=== PATIENT | male | born 1950 | race Caucasian/White ===

== ENCOUNTER 2016-09-17 09:32 | Outpatient (CLI) | payer MEDICARE ==
[2016-09-17 13:02] LABS: ALBUMIN/GLOBULIN RATIO 1.1 (1.0-2.2); BILIRUBIN,TOTAL 0.8 mg/dL (0.2-1.0); BUN - BLOOD UREA NITROGEN 15 mg/dL (6-20); CARBON DIOXIDE - CO2 29 mmol/L (21-32); CHLORIDE 100 mmol/L (101-111); CHOL/HDL RATIO 2.9 (<5.0); CHOLESTEROL 97 mg/dL; CREATININE 1.1 mg/dL (0.6-1.2); GFR - MDRD 67 (>89); GLUCOSE 111 mg/dL (70-100); HDL CHOLESTEROL 34 mg/dL; POTASSIUM 3.2 mmol/L (3.5-5.0); SODIUM 138 mmol/L (135-145); TOTAL PROTEIN 7.2 g/dL (6.7-8.2); TRIGLYCERIDES 144 mg/dL; VLDL CHOLESTEROL 29 mg/dL
== END 2016-09-17 09:33 | disposition home or self-care (01) ==
LOC: LAB.N 09:32
PROVIDERS: ATTEND Internal Medicine
DX: E78.4 Other hyperlipidemia (principal); N40.0 Benign prostatic hyperplasia without lower urinary tract symptoms; Z12.5 Encounter for screening for malignant neoplasm of prostate; C73 Malignant neoplasm of thyroid gland; Z79.899 Other long term (current) drug therapy
CPT/HCPCS: 36415; 80053; 80061; 84443; G0103; 84153

== ENCOUNTER 2016-10-04 09:38 | Outpatient (CLI) | payer MEDICARE ==
[2016-10-04 13:16] LABS: ALBUMIN/GLOBULIN RATIO 1.1 (1.0-2.2); BILIRUBIN,TOTAL 0.7 mg/dL (0.2-1.0); BUN - BLOOD UREA NITROGEN 14 mg/dL (6-20); CARBON DIOXIDE - CO2 32 mmol/L (21-32); CHLORIDE 99 mmol/L (101-111); CHOL/HDL RATIO 3.1 (<5.0); CHOLESTEROL 109 mg/dL; CREATININE 1.1 mg/dL (0.6-1.2); GFR - MDRD 67 (>89); GLUCOSE 106 mg/dL (70-100); HDL CHOLESTEROL 35 mg/dL; LDL/HDL RATIO 1.1 (<3.6); POTASSIUM 3.5 mmol/L (3.5-5.0); SODIUM 138 mmol/L (135-145); TOTAL PROTEIN 7.2 g/dL (6.7-8.2); TRIGLYCERIDES 170 mg/dL; VLDL CHOLESTEROL 34 mg/dL
== END 2016-10-04 09:39 | disposition home or self-care (01) ==
LOC: LAB.N 09:38
PROVIDERS: ATTEND Internal Medicine
DX: E78.4 Other hyperlipidemia (principal); I10 Essential (primary) hypertension; Z79.899 Other long term (current) drug therapy
CPT/HCPCS: 36415; 80053; 80061

== ENCOUNTER 2016-12-31 09:50 | Outpatient (CLI) | payer MEDICARE ==
[2016-12-31 13:07] LABS: THYROID STIMULATING HORMONE < 0.08 uIU/mL (0.34-5.60)
== END 2016-12-31 09:51 | disposition home or self-care (01) ==
LOC: LAB.N 09:50
PROVIDERS: ATTEND Internal Medicine Endocrinology, Diabetes & Metabolism
DX: C73 Malignant neoplasm of thyroid gland (principal)
CPT/HCPCS: 36415; 84432; 84439; 84443; 86800

== ENCOUNTER 2017-01-10 14:37 | Outpatient (CLI) | payer MEDICARE ==
[2017-01-10 14:04] LABS: THYROID STIMULATING HORMONE < 0.08 uIU/mL (0.34-5.60)
== END 2017-01-10 14:38 | disposition home or self-care (01) ==
LOC: LAB.N 14:37
PROVIDERS: ATTEND Internal Medicine Endocrinology, Diabetes & Metabolism
DX: C73 Malignant neoplasm of thyroid gland (principal)
CPT/HCPCS: 36415; 84439; 84443

== ENCOUNTER 2017-04-22 08:00 | Outpatient (CLI) | payer MEDICARE ==
[2017-04-22 12:43] LABS: HGB - HEMOGLOBIN 15.6 g/dL (14.0-18.0); MEAN CORPUSCULAR HEMOGLOBIN 29.8 pg (27.0-31.0); MEAN CORPUSCULAR HGB CONC 34.8 g/dL (32.0-36.0); MEAN CORPUSCULAR VOLUME 85.8 fL (80.0-94.0); MEAN PLATELET VOLUME 8.4 fL (7.4-11.4); RED BLOOD COUNT 5.21 10^6/uL (4.70-6.10); RED CELL DISTRIBUTION WIDTH 13.6 % (12.0-15.0); WHITE BLOOD COUNT 7.4 x10^3/uL (4.8-10.8)
[2017-04-22 13:08] LABS: ALBUMIN 3.7 g/dL (3.2-5.5); ALKALINE PHOSPHATASE 67 IU/L (42-121); ALT ALANINE AMINOTRANSFERASE 40 IU/L (10-60); AST ASPARTATE AMINOTRANSFERASE 25 IU/L (10-42); BILIRUBIN,TOTAL 0.6 mg/dL (0.2-1.0); BUN - BLOOD UREA NITROGEN 21 mg/dL (6-20); CALCIUM 8.8 mg/dL (8.5-10.3); CARBON DIOXIDE - CO2 29 mmol/L (21-32); CHLORIDE 99 mmol/L (101-111); CHOL/HDL RATIO 3.2 (<5.0); CHOLESTEROL 105 mg/dL; CREATININE 1.1 mg/dL (0.6-1.2); GFR - MDRD 66 (>89); GLUCOSE 105 mg/dL (70-100); HDL CHOLESTEROL 33 mg/dL; LDL CHOLESTEROL,CALCULATED 41 mg/dL; LDL/HDL RATIO 1.2 (<3.6); SODIUM 137 mmol/L (135-145); TOTAL PROTEIN 7.5 g/dL (6.7-8.2); VLDL CHOLESTEROL 31 mg/dL
[2017-04-22 13:34] LABS: HB2 TOTAL 17.2 g/dL; HEMOGLOBIN A1C 0.72 g/dL
== END 2017-04-22 08:01 | disposition home or self-care (01) ==
LOC: LAB.N 08:00
PROVIDERS: ATTEND Internal Medicine
DX: E78.4 Other hyperlipidemia (principal); E74.9 Disorder of carbohydrate metabolism, unspecified; I10 Essential (primary) hypertension; Z79.899 Other long term (current) drug therapy
CPT/HCPCS: 36415; 80053; 80061; 83036

== ENCOUNTER 2017-05-13 10:52 | Outpatient (CLI) | payer MEDICARE ==
--- NOTE | 2017-05-13 19:51 | Ultrasound Report ---
DATE OF SERVICE: 05/13/2017 AORTA SCREENIN05/13/2017 CLINICAL INDICATION: Hypertension. The abdominal aorta is normal in caliber, measuring 2.4 cm proximally, 1.8 cm in the mid portion, and 1.5 cm distally. The iliacs are normal in caliber. No free fluid is seen. IMPRESSION: No evidence of abdominal aortic aneurysm. TD: 05/13/2017 20:50
== END 2017-05-13 10:53 | disposition home or self-care (01) ==
LOC: DI 10:52
PROVIDERS: ATTEND Internal Medicine
DX: I10 Essential (primary) hypertension (principal)
CPT/HCPCS: 76706

== ENCOUNTER 2017-05-15 08:00 | Outpatient (CLI) | payer MEDICARE | END 2017-05-15 08:01 | disposition home or self-care (01) | LOC: LAB.N 08:00 | PROVIDERS: ATTEND Internal Medicine | DX: E87.6 Hypokalemia (principal); Z79.899 Other long term (current) drug therapy | CPT/HCPCS: 36415; 80048 ==

== ENCOUNTER 2017-06-17 13:44 | Outpatient (CLI) | payer MEDICARE ==
[2017-06-17 13:42] LABS: THYROID STIMULATING HORMONE 0.08 uIU/mL (0.34-5.60)
[2017-06-17 13:46] LABS: FREE T4 (FREE THYROXINE) 1.82 ng/dL (0.58-1.64)
[2017-06-17 13:57] LABS: CALCIUM 8.9 mg/dL (8.5-10.3)
== END 2017-06-17 13:45 | disposition home or self-care (01) ==
LOC: LAB.N 13:44
PROVIDERS: ATTEND Internal Medicine Endocrinology, Diabetes & Metabolism
DX: C73 Malignant neoplasm of thyroid gland (principal); E87.6 Hypokalemia; I10 Essential (primary) hypertension; Z79.899 Other long term (current) drug therapy
CPT/HCPCS: 36415; 80048; 84439; 84443

== ENCOUNTER 2017-06-19 08:00 | Outpatient (CLI) | payer MEDICARE | END 2017-06-19 08:01 | disposition home or self-care (01) | LOC: LAB.N 08:00 | PROVIDERS: ATTEND Internal Medicine Endocrinology, Diabetes & Metabolism | DX: C73 Malignant neoplasm of thyroid gland (principal) | CPT/HCPCS: 36415; 84432; 86800 ==

== ENCOUNTER 2018-01-27 09:31 | Emergency (ER) | payer MEDICARE ==
--- NOTE | 2018-01-27 10:17 | ED Physician Documentation ---
History of Present Illness - Stated complaint Stated Complaint: MALE - Chief complaint Chief Complaint: UTI - Additonal information Additional information: hx from pt 67 male BPH seen by PMD Friday for dysuira hematuria dx UTI rx bactrim still with dysuria, hematuria with some clots, low grade fever no rectal pain, no testicular pain Review of Systems Constitutional: reports: Fever GI: reports: Nausea. denies: Abdominal Pain : reports: Dysuria, Hematuria Musculoskeletal: denies: Back pain Endocrine: denies: Easy bruising / bleeding Immunocompromised: denies: Immunocompromised PD PAST MEDICAL HISTORY - Past Medical History Cardiovascular: Hypertension, High cholesterol Respiratory: None Endocrine/Autoimmune: None : Benign prostate hypertrophy Psych: None Musculoskeletal: Chronic back pain - Past Surgical History Past Surgical History: No - Present Medications Home Medications: Ambulatory Orders Medication Instructions Recorded Confirmed Aspirin [Aspir 81] 81 mg PO DAILY 06/08/13 06/08/13 Atorvastatin [Lovastatin] 40 mg PO HS 06/08/13 06/08/13 Baclofen [Lioresal] 10 mg PO TID 06/08/13 06/08/13 Bisacodyl [Biscolax] 10 mg RC DAILY 06/08/13 06/08/13 Chlorthalidone 15 mg PO DAILY 06/08/13 06/08/13 Ciprofloxacin HCl [Cipro] 250 mg PO BID 06/08/13 06/08/13 Docusate Sodium 100Mg Capsule 100 mg PO BID 06/08/13 06/08/13 [Colace] Doxazosin [Cardura] 8 mg PO DAILY 06/08/13 06/08/13 Metoprolol Tartrate [Lopressor] 25 mg PO BID 06/08/13 06/08/13 Polyvinyl Alcohol 1 drop OP BID 06/08/13 06/08/13 Potassium Chloride 20 meq PO DAILY 06/08/13 06/08/13 oxyCODONE [Roxicodone] 5 mg PO Q4H 06/08/13 06/08/13 Cephalexin [Keflex] 500 mg PO Q6H #28 capsule 01/27/18 - Allergies Allergies/Adverse Reactions: Allergies Allergy/AdvReac Type Severity Reaction Status Date / Time No Known Drug Allergies Allergy Verified 01/27/18 09:46 - Social History Does the pt smoke?: No Smoking Status: Never smoker Does the pt drink ETOH?: Yes Does the pt have substance abuse?: No - Immunizations Immunizations are current?: Yes - POLST Patient has POLST: No PD ED PE NORMAL - Vitals Vital signs reviewed: Yes - Neck Neck: Supple, no meningeal sign - Cardiac Cardiac: RRR - Respiratory Respiratory: No respiratory distress - Abdomen Abdomen: Soft, Non tender - Male Male : 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), Other (circ, no blood at meaturs, testes NT and desc) - Back Back: No CVA TTP Results - Vitals Vitals: Vital Signs - 24 hr 01/27/18 09:44 Temperature 37.0 C Heart Rate 100 Respiratory 20 Rate Blood Pressure 126/79 O2 Saturation 95 Oxygen O2 Source Room air - Rads (name of study) KUB Radiology: See rad report (no stones) PD MEDICAL DECISION MAKING - ED course ED course: urine + infection also hematuria but no flank pain to suggest renal colic (or AAA) KUB neg for stone and also no calcified AAA seen got cx results from PMD resistant to bactrim will give rocephin IV and change to keflex aware flouroquinolones better for prostate tx but also black box - so keflex for now and fup urology able to urinate - clots not blocking creat up to 1.3 - gave IVF will need rechecked will dc Departure - Departure Disposition: 01 Home, Self Care Clinical Impression: UTI (urinary tract infection) Qualifiers: Urinary tract infection type: acute cystitis Hematuria presence: with hematuria Qualified Code(s): N30.01 - Acute cystitis with hematuria Condition: Good Instructions: ED Hematuria, ED UTI Cystitis Female Follow-Up: Viji Knight MD [Primary Care Provider] - Prescriptions: Cephalexin [Keflex] 500 mg PO Q6H #28 capsule Comments: It turns out the bacteria causing your urine infection were resistant to the sulfa antibiotic you were prescribed So we gave you a dose of an IV antibiotic and then a prescription for an oral antibiotic that should work better for this particular infection There was a lot of blood in the urine but your exam and xrays do not suggest a kidney stone or aneurysm And your kidney function is a bit decreased from your baseline today (creatinine 1.3 today) Since the clots are not blocking the urine from draining, I think you can go home and take the keflex instead of bactrim/septra You need to follow up with your PMD to recheck your kidney function and urine test in one week. And you need to get a referral to a urologist about the blood in the urine (could be from the infection but a scope to be sure no bladder or kidney tumors etc) Return if worse in any way Discharge Date/Time: 01/27/18 12:33
[2018-01-27 10:22] LABS: BILIRUBIN,URINE NEGATIVE (NEGATIVE); GLUCOSE, URINE (UA) NEGATIVE (NEGATIVE); KETONES,URINE (UA) NEGATIVE (NEGATIVE); LEUKOCYTE ESTERASE, URINE MODERATE (NEGATIVE); NITRITE,URINE NEGATIVE (NEGATIVE); OCCULT BLOOD,URINE LARGE (NEGATIVE); PH,URINE 8.5 PH (5.0-7.5); PROTEIN,URINE 30 mg/dL (NEGATIVE); UROBILINOGEN,URINE 0.2 (NORMAL) E.U./dL (NORMAL)
[2018-01-27 10:42] LABS: CLARITY,URINE CLOUDY (CLEAR)
[2018-01-27 10:43] LABS: BACTERIA,URINE Moderate /HPF (None Seen); RBC,URINE TNTC /HPF (0-5); SQUAMOUS EPITHELIAL CELL,UR NONE SEEN (<= Few); WBC CLUMPS,URINE PRESENT
[2018-01-27] MEDS ORDERED: SODIUM CHLORIDE 0.9% 1,000 ML IV ONE (10:54)
[2018-01-27] MEDS ORDERED: cefTRIAXone 1 GM in SODIUM CHLORIDE 0.9% MINIBAG 100 ML IV STA (10:54)
[2018-01-27 11:58] LABS: CALCIUM 9.1 mg/dL (8.5-10.3); CREATININE 1.3 mg/dL (0.6-1.2)
--- NOTE | 2018-01-27 12:02 | XRAY Report ---
Reason: hematuria Procedure Date: 01/27/2018 Accession Number: [id number] / [id number] Procedure: XR - Abdomen 1 View X-Ray CPT Code: 37348 FULL RESULT: EXAM: ABDOMEN RADIOGRAPHY EXAM DATE: 01/27/2018 10:59 AM. CLINICAL HISTORY: Hematuria. COMPARISON: None. TECHNIQUE: 1 view. FINDINGS: Bowel Gas Pattern: Within normal limits. Air-filled ectatic colon No dilated loops. Other: No renal calcifications identified Left upper quadrant calcifications possibly spleen versus GI tract IMPRESSION: No renal calcifications RADIA
[2018-01-27 12:33] VITALS: BP 138/88
== END 2018-01-27 12:33 | disposition home or self-care (01) ==
LOC: ED 09:31
DX: N30.01 Acute cystitis with hematuria (principal); A49.9 Bacterial infection, unspecified; I10 Essential (primary) hypertension; E78.00 Pure hypercholesterolemia, unspecified; Z79.82 Long term (current) use of aspirin
CPT/HCPCS: 36415; 74018; 80048; 81001; 81003; 87086; 96365; 99283

== ENCOUNTER 2018-03-02 08:00 | Outpatient (CLI) | payer MEDICARE ==
[2018-03-02 15:46] LABS: ALBUMIN 3.8 g/dL (3.2-5.5); ALBUMIN/GLOBULIN RATIO 1.1 (1.0-2.2); ALKALINE PHOSPHATASE 72 IU/L (42-121); ALT ALANINE AMINOTRANSFERASE 35 IU/L (10-60); AST ASPARTATE AMINOTRANSFERASE 29 IU/L (10-42); BILIRUBIN,TOTAL 1.1 mg/dL (0.2-1.0); BUN - BLOOD UREA NITROGEN 16 mg/dL (6-20); CALCIUM 8.9 mg/dL (8.5-10.3); CARBON DIOXIDE - CO2 28 mmol/L (21-32); CHLORIDE 98 mmol/L (101-111); CHOL/HDL RATIO 3.1 (<5.0); CHOLESTEROL 107 mg/dL; GFR - MDRD 74 (>89); GLUCOSE 103 mg/dL (70-100); HDL CHOLESTEROL 35 mg/dL; LDL CHOLESTEROL,CALCULATED 32 mg/dL; LDL/HDL RATIO 0.9 (<3.6); SODIUM 134 mmol/L (135-145); TOTAL PROTEIN 7.3 g/dL (6.7-8.2); VLDL CHOLESTEROL 40 mg/dL
[2018-03-02 15:52] LABS: HGB - HEMOGLOBIN 16.1 g/dL (14.0-18.0); MEAN CORPUSCULAR HEMOGLOBIN 29.3 pg (27.0-31.0); MEAN CORPUSCULAR HGB CONC 33.4 g/dL (32.0-36.0); MEAN CORPUSCULAR VOLUME 87.7 fL (80.0-94.0); MEAN PLATELET VOLUME 8.8 fL (7.4-11.4); RED BLOOD COUNT 5.5 10^6/uL (4.70-6.10); RED CELL DISTRIBUTION WIDTH 13.9 % (12.0-15.0); WHITE BLOOD COUNT 6.7 x10^3/uL (4.8-10.8)
== END 2018-03-02 08:01 | disposition home or self-care (01) ==
LOC: LAB.N 08:00
PROVIDERS: ATTEND Internal Medicine
DX: N40.0 Benign prostatic hyperplasia without lower urinary tract symptoms (principal); I10 Essential (primary) hypertension; E87.6 Hypokalemia; Z79.899 Other long term (current) drug therapy
CPT/HCPCS: 36415; 80053; 80061; 82306; 85027; G0103; 81001; 81003; 83721; 84153

== ENCOUNTER 2018-03-13 08:00 | Outpatient (CLI) | payer MEDICARE ==
[2018-03-13 12:51] LABS: CALCIUM 9.2 mg/dL (8.5-10.3); CREATININE 1.1 mg/dL (0.6-1.2)
== END 2018-03-13 23:59 ==
LOC: LAB.N 08:00
PROVIDERS: ATTEND Internal Medicine
DX: E78.49 Other hyperlipidemia (principal); I10 Essential (primary) hypertension
CPT/HCPCS: 36415; 80048

== ENCOUNTER 2018-03-20 08:00 | Outpatient (CLI) | payer MEDICARE | END 2018-03-20 08:01 | disposition home or self-care (01) | LOC: LAB.N 08:00 | PROVIDERS: ATTEND Internal Medicine | DX: I10 Essential (primary) hypertension (principal); E78.49 Other hyperlipidemia; E87.6 Hypokalemia | CPT/HCPCS: 36415; 84132 ==

== ENCOUNTER 2018-04-17 10:05 | Outpatient (CLI) | payer MEDICARE ==
[2018-04-17 15:06] LABS: CALCIUM 9.2 mg/dL (8.5-10.3); CREATININE 1.1 mg/dL (0.6-1.2)
== END 2018-04-17 23:59 | disposition home or self-care (01) ==
LOC: LAB.N 10:05
PROVIDERS: ATTEND Internal Medicine
DX: E87.6 Hypokalemia (principal)
CPT/HCPCS: 36415; 80048

== ENCOUNTER 2018-05-04 08:00 | Outpatient (CLI) | payer MEDICARE | END 2018-05-04 23:59 | disposition home or self-care (01) | LOC: LAB.N 08:00 | PROVIDERS: ATTEND Internal Medicine | DX: E78.6 Lipoprotein deficiency (principal); E74.4 Disorders of pyruvate metabolism and gluconeogenesis; Z79.899 Other long term (current) drug therapy | CPT/HCPCS: 36415; 84132 ==

== ENCOUNTER 2018-05-15 08:00 | Outpatient (CLI) | payer MEDICARE ==
[2018-05-15 12:59] LABS: BASOPHILS % (AUTO) 0.7 %; EOSINOPHILS # (AUTO) 0.2 10^3/uL (0.0-0.7); EOSINOPHILS % (AUTO) 2.3 %; HGB - HEMOGLOBIN 16.2 g/dL (14.0-18.0); LYMPHOCYTES # (AUTO) 1.7 10^3/uL (1.5-3.5); LYMPHOCYTES % (AUTO) 25.2 %; MEAN CORPUSCULAR HGB CONC 34.6 g/dL (32.0-36.0); MEAN CORPUSCULAR VOLUME 86.8 fL (80.0-94.0); MEAN PLATELET VOLUME 8.6 fL (7.4-11.4); MONOCYTES # (AUTO) 0.6 10^3/uL (0.0-1.0); MONOCYTES % (AUTO) 8.4 %; NEUTROPHILS # (AUTO) 4.4 10^3/uL (1.5-6.6); NEUTROPHILS % (AUTO) 63.4 %; PLT - PLATELET COUNT 224 10^3/uL (130-450); RED BLOOD COUNT 5.39 10^6/uL (4.70-6.10); RED CELL DISTRIBUTION WIDTH 13.3 % (12.0-15.0); WHITE BLOOD COUNT 6.9 x10^3/uL (4.8-10.8)
[2018-05-15 13:23] LABS: ALBUMIN 3.7 g/dL (3.2-5.5); ALKALINE PHOSPHATASE 68 IU/L (42-121); ALT ALANINE AMINOTRANSFERASE 28 IU/L (10-60); AST ASPARTATE AMINOTRANSFERASE 29 IU/L (10-42); BILIRUBIN,TOTAL 0.7 mg/dL (0.2-1.0); BUN - BLOOD UREA NITROGEN 16 mg/dL (6-20); CALCIUM 9.2 mg/dL (8.5-10.3); CARBON DIOXIDE - CO2 26 mmol/L (21-32); CHLORIDE 96 mmol/L (101-111); CHOL/HDL RATIO 2.7 (<5.0); CHOLESTEROL 103 mg/dL; CREATININE 1.1 mg/dL (0.6-1.2); GFR - MDRD 66 (>89); GLUCOSE 105 mg/dL (70-100); HDL CHOLESTEROL 38 mg/dL; LDL CHOLESTEROL,CALCULATED 36 mg/dL; LDL/HDL RATIO 0.9 (<3.6); SODIUM 136 mmol/L (135-145); TOTAL PROTEIN 7.4 g/dL (6.7-8.2); VLDL CHOLESTEROL 29 mg/dL
== END 2018-05-15 23:59 ==
LOC: LAB.N 08:00
PROVIDERS: ATTEND Internal Medicine
DX: I10 Essential (primary) hypertension (principal); N40.0 Benign prostatic hyperplasia without lower urinary tract symptoms; C73 Malignant neoplasm of thyroid gland; E78.49 Other hyperlipidemia; E74.9 Disorder of carbohydrate metabolism, unspecified
CPT/HCPCS: 36415; 80053; 80061; 85025; G0103; 81001; 83721; 84153

== ENCOUNTER 2018-07-23 09:58 | Emergency (ER) | payer MEDICARE ==
[2018-07-23 10:05] VITALS: BP 112/67
[2018-07-23 10:40] LABS: BILIRUBIN,URINE NEGATIVE (NEGATIVE); GLUCOSE, URINE (UA) NEGATIVE (NEGATIVE); KETONES,URINE (UA) NEGATIVE (NEGATIVE); LEUKOCYTE ESTERASE, URINE SMALL (NEGATIVE); NITRITE,URINE NEGATIVE (NEGATIVE); OCCULT BLOOD,URINE MODERATE (NEGATIVE); PH,URINE 8.5 PH (5.0-7.5); PROTEIN,URINE TRACE mg/dL (NEGATIVE); UROBILINOGEN,URINE 1 (NORMAL) E.U./dL (NORMAL)
[2018-07-23 10:50] LABS: CLARITY,URINE CLOUDY (CLEAR)
[2018-07-23] MEDS ORDERED: cefTRIAXone 1 GM VIAL IM STA (10:54)
[2018-07-23] MEDS ORDERED: LIDOCAINE 1% 2 ML VIAL MC ONE (10:54)
[2018-07-23 10:56] LABS: BACTERIA,URINE Rare /HPF (None Seen); SQUAMOUS EPITHELIAL CELL,UR RARE Squamous (<= Few); WBC CLUMPS,URINE PRESENT
--- NOTE | 2018-07-23 10:57 | ED Physician Documentation ---
History of Present Illness - Stated complaint Stated Complaint: MALE - Chief complaint Chief Complaint: UTI - History obtained from History obtained from: Patient, Caregiver - History of Present Illness Timing: How many days ago (3) Pain level max: 6 Pain level now: 4 - Additonal information Additional information: Patient is a 68-year-old male complaining of dysuria, hematuria for the past 3 days. Pain and burning present with urination. No fevers. No back pain. No nausea or vomiting. Saw PCP on Friday, started on Pyridium. Not placed on antibiotics. Azo did help the pain, worse with urination Review of Systems Constitutional: denies: Fever, Chills Respiratory: denies: Cough GI: denies: Vomiting, Constipation, Diarrhea, Hematemesis, Bloody / black stool Skin: denies: Rash Musculoskeletal: denies: Neck pain, Back pain Neurologic: denies: Headache PD PAST MEDICAL HISTORY - Past Medical History Past Medical History: Yes Cardiovascular: Hypertension, High cholesterol Respiratory: None Neuro: CVA Endocrine/Autoimmune: None : Benign prostate hypertrophy Psych: None Musculoskeletal: Chronic back pain - Past Surgical History Past Surgical History: Yes - Present Medications Home Medications: Ambulatory Orders Medication Instructions Recorded Confirmed Aspirin [Aspir 81] 81 mg PO DAILY 06/08/13 07/23/18 Atorvastatin [Lovastatin] 40 mg PO HS 06/08/13 07/23/18 Baclofen [Lioresal] 10 mg PO TID 06/08/13 07/23/18 Docusate Sodium 100Mg Capsule 100 mg PO BID 06/08/13 07/23/18 [Colace] Doxazosin [Cardura] 8 mg PO DAILY 06/08/13 07/23/18 Metoprolol Tartrate [Lopressor] 25 mg PO BID 06/08/13 07/23/18 Potassium Chloride 20 meq PO DAILY 06/08/13 07/23/18 Cefdinir 300 mg PO BID #14 capsule 07/23/18 Levothyroxine Sodium [Synthroid] 112 mcg PO DAILY 07/23/18 07/23/18 - Allergies Allergies/Adverse Reactions: Allergies Allergy/AdvReac Type Severity Reaction Status Date / Time No Known Drug Allergies Allergy Verified 07/23/18 10:05 - Social History Does the pt smoke?: Yes Smoking Status: Current every day smoker Does the pt drink ETOH?: No Does the pt have substance abuse?: No - Immunizations Immunizations are current?: Yes - POLST Patient has POLST: No PD ED PE NORMAL - Vitals Vital signs reviewed: Yes - General General: Alert and oriented X 3, No acute distress, Well developed/nourished - HEENT HEENT: Moist mucous membranes - Neck Neck: Supple, no meningeal sign - Cardiac Cardiac: RRR - Respiratory Respiratory: No respiratory distress, Clear bilaterally - Abdomen Abdomen: Soft, Non tender, Non distended - Back Back: No CVA TTP, No spinal TTP - Derm Derm: Warm and dry - Neuro Neuro: Alert and oriented X 3 - Psych Psych: Normal mood, Normal affect Results - Vitals Vitals: Vital Signs - 24 hr 07/23/18 10:02 Temperature 35.6 C L Heart Rate 81 Respiratory 16 Rate Blood Pressure 112/67 O2 Saturation 96 Oxygen O2 Source Room air - Labs Labs: Laboratory Tests 07/23/18 10:27 Urine Color YELLOW Urine Clarity CLOUDY Urine pH 8.5 H Ur Specific [place] 1.020 Urine Protein TRACE Urine Glucose (UA) NEGATIVE Urine Ketones NEGATIVE Urine Occult Blood MODERATE H Urine Nitrite NEGATIVE Urine Bilirubin NEGATIVE Urine Urobilinogen 1 (NORMAL) Ur Leukocyte Esterase SMALL H Urine RBC 11-25 H Urine WBC >25 H Urine WBC Clumps PRESENT Ur Squamous Epith Cells RARE Squamous Urine Bacteria Rare Ur Microscopic Review INDICATED Urine Culture Comments INDICATED PD MEDICAL DECISION MAKING - ED course Complexity details: reviewed results, re-evaluated patient, considered differential, d/w patient ED course: Patient with a UTI. Will place on Cefdinir for home based on his prior urine cultures. Given Rocephin here. Will follow up with his PCP. Does not have chronic indwelling Henry catheters. Patient counseled regarding signs and symptoms for which I believe and urgent re-evaluation would be necessary. Patient with good understanding of and agreement to plan and is comfortable going home at this time This document was made in part using voice recognition software. While efforts are made to proofread this document, sound alike and grammatical errors may occur. Departure - Departure Disposition: 01 Home, Self Care Clinical Impression: UTI (urinary tract infection) Qualifiers: Urinary tract infection type: acute cystitis Hematuria presence: with hematuria Qualified Code(s): N30.01 - Acute cystitis with hematuria Condition: Good Instructions: ED UTI Cystitis Male Follow-Up: Viji Knight MD [Primary Care Provider] - Within 1 week Prescriptions: Cefdinir 300 mg PO BID #14 capsule Comments: Take all antibiotics until gone. Return if you worsen. Follow-up with your doc tor for further care.
== END 2018-07-23 11:29 | disposition home or self-care (01) ==
LOC: ED 09:58
DX: I10 Essential (primary) hypertension (principal); F17.200 Nicotine dependence, unspecified, uncomplicated; N30.01 Acute cystitis with hematuria; Z96.0 Presence of urogenital implants
CPT/HCPCS: 81001; 81003; 87077; 87086; 87181; 96372; 99283

== ENCOUNTER 2019-07-02 08:02 | Outpatient (CLI) | payer MEDICARE ==
[2019-07-02 12:10] LABS: BASOPHILS # (AUTO) 0.1 10^3/uL (0.0-0.1); BASOPHILS % (AUTO) 1.2 %; BILIRUBIN,URINE NEGATIVE (NEGATIVE); EOSINOPHILS # (AUTO) 0.2 10^3/uL (0.0-0.7); EOSINOPHILS % (AUTO) 2.4 %; GLUCOSE, URINE (UA) NEGATIVE (NEGATIVE); HGB - HEMOGLOBIN 16.9 g/dL (14.0-18.0); KETONES,URINE (UA) NEGATIVE (NEGATIVE); LEUKOCYTE ESTERASE, URINE SMALL (NEGATIVE); LYMPHOCYTES # (AUTO) 1.8 10^3/uL (1.5-3.5); MEAN CORPUSCULAR HEMOGLOBIN 30.8 pg (27.0-31.0); MEAN CORPUSCULAR HGB CONC 34.4 g/dL (32.0-36.0); MEAN CORPUSCULAR VOLUME 89.6 fL (80.0-94.0); MEAN PLATELET VOLUME 10.2 fL (7.4-11.4); MONOCYTES # (AUTO) 0.5 10^3/uL (0.0-1.0); MONOCYTES % (AUTO) 7.6 %; NEUTROPHILS # (AUTO) 4.1 10^3/uL (1.5-6.6); NEUTROPHILS % (AUTO) 61.5 %; NITRITE,URINE POSITIVE (NEGATIVE); OCCULT BLOOD,URINE TRACE-INTA (NEGATIVE); PH,URINE 7.5 PH (5.0-7.5); PLT - PLATELET COUNT 242 10^3/uL (130-450); PROTEIN,URINE NEGATIVE (NEGATIVE); RED BLOOD COUNT 5.48 10^6/uL (4.70-6.10); RED CELL DISTRIBUTION WIDTH 12.6 % (12.0-15.0); UROBILINOGEN,URINE 0.2 (NORMAL) E.U./dL (NORMAL); WHITE BLOOD COUNT 6.7 x10^3/uL (4.8-10.8)
[2019-07-02 12:11] LABS: CLARITY,URINE HAZY (CLEAR)
[2019-07-02 12:20] LABS: BACTERIA,URINE Few /HPF (None Seen); MUCUS,URINE Few Strands; RBC,URINE 0-5 /HPF (0-5); SQUAMOUS EPITHELIAL CELL,UR RARE Squamous (<= Few)
[2019-07-02 12:28] LABS: ALBUMIN 3.8 g/dL (3.2-5.5); ALBUMIN/GLOBULIN RATIO 1.2 (1.0-2.2); ALKALINE PHOSPHATASE 57 IU/L (42-121); ALT ALANINE AMINOTRANSFERASE 23 IU/L (10-60); AST ASPARTATE AMINOTRANSFERASE 20 IU/L (10-42); BILIRUBIN,TOTAL 0.9 mg/dL (0.2-1.0); BUN - BLOOD UREA NITROGEN 19 mg/dL (6-20); CALCIUM 9.2 mg/dL (8.5-10.3); CARBON DIOXIDE - CO2 26 mmol/L (21-32); CHLORIDE 102 mmol/L (101-111); CHOL/HDL RATIO 3.8 (<5.0); CHOLESTEROL 129 mg/dL; CREATININE 0.9 mg/dL (0.6-1.2); GLUCOSE 108 mg/dL (70-100); HDL CHOLESTEROL 34 mg/dL; LDL CHOLESTEROL,CALCULATED 62 mg/dL; LDL/HDL RATIO 1.8 (<3.6); SODIUM 136 mmol/L (135-145); VLDL CHOLESTEROL 33 mg/dL
[2019-07-02 12:34] LABS: T4 (THYROXINE) 13.22 ug/dL (6.09-12.23)
[2019-07-02 12:37] LABS: THYROID STIMULATING HORMONE 0.2 uIU/mL (0.34-5.60)
== END 2019-07-02 23:59 | disposition home or self-care (01) ==
LOC: LAB.N 08:02
PROVIDERS: ATTEND Internal Medicine
DX: I10 Essential (primary) hypertension (principal); E78.49 Other hyperlipidemia; Z79.899 Other long term (current) drug therapy; C73 Malignant neoplasm of thyroid gland; E03.9 Hypothyroidism, unspecified; E78.6 Lipoprotein deficiency
CPT/HCPCS: 36415; 80053; 80061; 81001; 81003; 83721; 84436; 84443; 85025

== ENCOUNTER 2019-12-10 17:49 | Outpatient (CLI) | payer MEDICARE | END 2019-12-10 17:50 | disposition EMS.NT | LOC: EMS 17:49 | PROVIDERS: ATTEND Surgery | DX: R19.8 Other specified symptoms and signs involving the digestive system and abdomen (principal) ==

== ENCOUNTER 2020-03-29 21:16 | Outpatient (CLI) | payer MEDICARE | END 2020-03-29 21:17 | disposition critical access hospital (66) | LOC: EMS 21:16 | PROVIDERS: ATTEND Surgery | DX: R53.1 Weakness (principal); K59.00 Constipation, unspecified; R42 Dizziness and giddiness | CPT/HCPCS: A0425; A0427 ==

== ENCOUNTER 2020-03-29 21:45 | Inpatient (IN) | payer MEDICARE ==
[2020-03-29 22:08] LABS: LYMPHOCYTES % (AUTO) 1.6 %
[2020-03-29 22:15] LABS: BASOPHILS % (AUTO) 0.4 %; EOSINOPHILS % (AUTO) 0.2 %; HGB - HEMOGLOBIN 13.7 g/dL (14.0-18.0); MEAN CORPUSCULAR HEMOGLOBIN 30.4 pg (27.0-31.0); MEAN CORPUSCULAR HGB CONC 33.3 g/dL (32.0-36.0); MEAN CORPUSCULAR VOLUME 91.4 fL (80.0-94.0); MEAN PLATELET VOLUME 10.2 fL (7.4-11.4); NEUTROPHILS % (AUTO) 88.7 %; PLT - PLATELET COUNT 134 10^3/uL (130-450); RED BLOOD COUNT 4.51 10^6/uL (4.70-6.10); RED CELL DISTRIBUTION WIDTH 12.8 % (12.0-15.0); WHITE BLOOD COUNT 25.7 x10^3/uL (4.8-10.8)
[2020-03-29 22:18] LABS: ABNORMAL LYMPHS % (MANUAL) 0 %
[2020-03-29 22:20] LABS: ALBUMIN 2.9 g/dL (3.2-5.5); ALBUMIN/GLOBULIN RATIO 1.1 (1.0-2.2); CALCIUM 8.4 mg/dL (8.5-10.3); CREATININE 3.3 mg/dL (0.6-1.2); TOTAL PROTEIN 5.6 g/dL (6.7-8.2)
[2020-03-29] MEDS ORDERED: LACTATED RINGERS 1,000 ML IV STA (22:27)
--- NOTE | 2020-03-29 22:30 | ED Physician Documentation ---
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 He states that he has not had any fevers but has been feeling clammy. Tolerating normal oral intake but has not had a bowel movement in a week. Does have a history of constipation. Denies abdominal pain, blood per rectum, nausea, headache, chest pain, shortness of breath or cough. Denies body aches. Denies etoh or smoking. Review of Systems Ten Systems: 10 systems reviewed and negative Constitutional: reports: Other ("clamminess"). denies: Fever, Chills Eyes: denies: Loss of vision GI: reports: Constipation. denies: Abdominal Pain, Nausea : denies: Dysuria, Frequency, Hesitancy Neurologic: reports: Focal weakness (chronic) PD PAST MEDICAL HISTORY - Past Medical History Past Medical History: Yes Cardiovascular: Hypertension, High cholesterol Respiratory: None Neuro: CVA Endocrine/Autoimmune: None : Benign prostate hypertrophy Psych: None Musculoskeletal: Chronic back pain - Past Surgical History Past Surgical History: Yes - Present Medications Home Medications: Ambulatory Orders Medication Instructions Recorded Confirmed Aspirin [Aspir 81] 81 mg PO DAILY 06/08/13 03/29/20 Atorvastatin [Lovastatin] 40 mg PO HS 06/08/13 03/29/20 Baclofen [Lioresal] 10 mg PO TID 06/08/13 03/29/20 Docusate Sodium 100Mg Capsule 100 mg PO BID 06/08/13 03/29/20 [Colace] Doxazosin [Cardura] 8 mg PO DAILY 06/08/13 07/23/18 Metoprolol Tartrate [Lopressor] 25 mg PO BID 06/08/13 03/29/20 Potassium Chloride 20 meq PO DAILY 06/08/13 03/29/20 Cefdinir 300 mg PO BID #14 capsule 07/23/18 Levothyroxine Sodium [Synthroid] 112 mcg PO DAILY 07/23/18 03/29/20 Chlorthalidone 25 mg PO DAILY 03/29/20 03/29/20 - Allergies Allergies/Adverse Reactions: Allergies Allergy/AdvReac Type Severity Reaction Status Date / Time No Known Drug Allergies Allergy Verified 03/29/20 21:48 - Social History Does the pt smoke?: Yes Smoking Status: Current every day smoker Does the pt drink ETOH?: No Does the pt have substance abuse?: No - Immunizations Immunizations are current?: Yes - POLST Patient has POLST: No PD ED PE NORMAL - Vitals Vital signs reviewed: Yes - General General: Alert and oriented X 3 - HEENT HEENT: Atraumatic, PERRL, EOMI - Cardiac Cardiac: RRR - Respiratory Respiratory: No respiratory distress, Clear bilaterally - Abdomen Abdomen: Soft, Non tender, Non distended - Male Male : Deferred - Rectal Rectal: Other (soft brown stool in vault. ) - Back Back: No CVA TTP - Derm Derm: Normal color, Warm and dry - Extremities Extremities: No deformity, No edema - Neuro Neuro: Alert and oriented X 3, superior court clerk 2-12 intact, Other (L hemiplegia) - Psych Psych: Normal mood, Normal affect Results - Vitals Vitals: Vital Signs - 24 hr 03/29/20 03/29/20 03/29/20 21:48 21:53 22:06 Temperature 37.6 C 37.6 C 37.6 C Heart Rate 98 98 95 Respiratory 19 19 19 Rate Blood Pressure 87/58 L 87/58 L 82/49 L O2 Saturation 95 95 95 03/29/20 03/29/20 03/29/20 22:14 22:17 22:21 Temperature 37.6 C 37.6 C 37.6 C Heart Rate 95 96 94 Respiratory 19 19 19 Rate Blood Pressure 79/49 L 82/48 L 79/43 L O2 Saturation 95 96 96 03/29/20 03/29/20 03/29/20 22:25 22:30 22:41 Temperature 38.6 C H 37.6 C 38.4 C H Heart Rate 94 100 Respiratory 20 20 Rate Blood Pressure 90/59 L 107/91 H O2 Saturation 95 95 03/29/20 03/29/20 03/29/20 22:42 23:00 23:20 Temperature 38.6 C H 38.6 C H 38.6 C H Heart Rate 99 95 94 Respiratory 20 20 20 Rate Blood Pressure 81/60 L 89/51 L 89/54 L O2 Saturation 95 95 95 03/29/20 03/29/20 03/29/20 23:22 23:30 23:52 Temperature 36.8 C 36.8 C 36.8 C Heart Rate 95 93 91 Respiratory 20 22 21 Rate Blood Pressure 85/53 L 92/50 L 91/56 L O2 Saturation 95 94 95 Oxygen O2 Source Room air - EKG (time done) 2158 Rate: Rate (enter#) (96) Rhythm: NSR (normal intervals. no stemi) - Labs Labs: Laboratory Tests 03/29/20 03/29/20 03/29/20 22:02 22:02 22:39 WBC 25.7 H RBC 4.51 L Hgb 13.7 L Hct 41.2 L MCV 91.4 MCH 30.4 MCHC 33.3 RDW 12.8 Plt Count 134 MPV 10.2 Neut # (Auto) Not Reportable Lymph # (Auto) Not Reportable [place] # (Auto) Not Reportable Eos # (Auto) Not Reportable Baso # (Auto) Not Reportable Absolute Nucleated RBC Not Reportable Total Counted 100 Band Neuts % (Manual) 26 H Abnorm Lymph % (Manual) 0 Nucleated RBC % Not Reportable Neutrophils # (Manual) 23.4 H Lymphocytes # (Manual) 1.0 L Monocytes # (Manual) 1.3 H Eosinophils # (Manual) 0.0 Basophils # (Manual) 0.0 Differential Comment MANUAL DIFFERENTIAL Platelet Estimate NORMAL (130-450,000) Platelet Morphology 1+ LARGE PLATELETS RBC Morph Micro Appear NORMAL APPEARANCE Sodium 138 Potassium 3.7 Chloride 104 Carbon Dioxide 21 Anion Gap 13.0 BUN 30 H Creatinine 3.3 H Estimated GFR (MDRD) 19 L Glucose 96 Lactic Acid Calcium 8.4 L Total Bilirubin 1.0 AST 27 ALT 22 Alkaline Phosphatase 38 L Total Protein 5.6 L Albumin 2.9 L Globulin 2.7 Albumin/Globulin Ratio 1.1 Lipase 19 L Urine Color DARK YELLOW Urine Clarity CLOUDY Urine pH 5.0 Ur Specific [place] >=1.030 H Urine Protein 100 H Urine Glucose (UA) NEGATIVE Urine Ketones 15 H Urine Occult Blood LARGE H Urine Nitrite NEGATIVE Urine Bilirubin NEGATIVE Urine Urobilinogen 0.2 (NORMAL) Ur Leukocyte Esterase MODERATE H Urine RBC TNTC H Urine WBC >25 H Ur Squamous Epith Cells FEW Squamous Amorphous Sediment Few Urine Bacteria Few Urine Casts 0-2 RBC Casts Urine Culture Comments INDICATED 03/29/20 23:04 WBC RBC Hgb Hct MCV MCH MCHC RDW Plt Count MPV Neut # (Auto) Lymph # (Auto) [place] # (Auto) Eos # (Auto) Baso # (Auto) Absolute Nucleated RBC Total Counted Band Neuts % (Manual) Abnorm Lymph % (Manual) Nucleated RBC % Neutrophils # (Manual) Lymphocytes # (Manual) Monocytes # (Manual) Eosinophils # (Manual) Basophils # (Manual) Differential Comment Platelet Estimate Platelet Morphology RBC Morph Micro Appear Sodium Potassium Chloride Carbon Dioxide Anion Gap BUN Creatinine Estimated GFR (MDRD) Glucose Lactic Acid 3.3 H* Calcium Total Bilirubin AST ALT Alkaline Phosphatase Total Protein Albumin Globulin Albumin/Globulin Ratio Lipase Urine Color Urine Clarity Urine pH Ur Specific [place] Urine Protein Urine Glucose (UA) Urine Ketones Urine Occult Blood Urine Nitrite Urine Bilirubin Urine Urobilinogen Ur Leukocyte Esterase Urine RBC Urine WBC Ur Squamous Epith Cells Amorphous Sediment Urine Bacteria Urine Casts Urine Culture Comments PD MEDICAL DECISION MAKING - ED course Complexity details: reviewed results, re-evaluated patient, d/w patient ED course: 69 yM presented to the ed for lightheadedness, found to be hypotensive in field with normal fingerstick. Patient with persistent hypotension despite 1 L of IV fluids by EMS. Will give a second liter. Lab work indicating some significant KAYLAH. Will check his urine given recent urinary tract infection. Plan to discuss with hospitalist for admission. 10:40 - urosepsis suspected at this time. patient with very dark urine. rectal temp 38. will continue to bolus ivf and reevaluate. 11:30pm - Lactate mildly elevated. will repeat. patient feels better, stating his dizziness has improved. BP improving, currently 85/53 with 30cc/kg bolus going in. 12:07am - patient clinically improved with HR in low 90s. bp continuing to trend upward, currently 91/56. d/w Dr. Magana - will admit to icu. he is requesting we take him to CT prior to going to the icu to evaluate for obstructive cause of his urosepsis. Departure - Departure Disposition: 66 [facility] DC/Xfer Clinical Impression: Leukocytosis, KAYLAH (acute kidney injury), Hypotension, UTI (urinary tract infection), Hematuria Condition: Stable
[2020-03-29 22:37] LABS: BAND NEUTROPHILS % (MANUAL) 26 %; DIFFERENTIAL COMMENT MANUAL DIFFERENTIAL; LYMPHOCYTES % (MANUAL) 4 %; MONOCYTES # (MANUAL) 1.3 10^3/uL (0.0-1.0); PLATELET ESTIMATE, MANUAL NORMAL (130-450,000) (NORMAL); PLATELET MORPHOLOGY 1+ LARGE PLATELETS (NORMAL); RBC MORPHOLOGY (MULTIPLE) NORMAL APPEARANCE (NORMAL)
[2020-03-29] MEDS ORDERED: VANCOMYCIN INJ 1.25 GM in SODIUM CHLORIDE 0.9% 250 ML IV STA (22:41)
[2020-03-29] MEDS ORDERED: LACTATED RINGERS IV STA (22:41)
[2020-03-29] MEDS ORDERED: PIPERACILLIN/TAZOBACTAM 3.375 GM in SODIUM CHLORIDE 0.9% MINIBAG 100 ML IV STA (22:41)
[2020-03-29] MEDS ORDERED: VANCOMYCIN 1 GM VIAL ONE ×2 (23:08→23:47)
[2020-03-29 23:21] LABS: GLUCOSE, URINE (UA) NEGATIVE (NEGATIVE); KETONES,URINE (UA) 15 mg/dL (NEGATIVE); LEUKOCYTE ESTERASE, URINE MODERATE (NEGATIVE); NITRITE,URINE NEGATIVE (NEGATIVE); OCCULT BLOOD,URINE LARGE (NEGATIVE); PROTEIN,URINE 100 mg/dL (NEGATIVE); UROBILINOGEN,URINE 0.2 (NORMAL) E.U./dL (NORMAL)
[2020-03-29 23:46] LABS: AMORPHOUS SEDIMENT,UR Few /LPF; BACTERIA,URINE Few /HPF (None Seen); BILIRUBIN,URINE NEGATIVE (NEGATIVE); CLARITY,URINE CLOUDY (CLEAR); ICTOTEST,URINE NEGATIVE; RBC,URINE TNTC /HPF (0-5); SQUAMOUS EPITHELIAL CELL,UR FEW Squamous (<= Few)
[2020-03-30] MEDS ORDERED: ACETAMINOPHEN 650 MG SUPP PR STA
[2020-03-30] MEDS ORDERED: ONDANSETRON 4 MG/2 ML VIAL IVP PRN (00:05)
--- NOTE | 2020-03-30 00:12 | HISTORY & PHYSICAL EXAMINATION ---
Chief Complaint - Chief Complaint Chief Complaint: Hypotension History of Present Illness - Admitted From Admitted From:: [facility] with [facility] ED - History Obtained From Records Reviewed: Yes History obtained from: Patient - History of Present Illness HPI Comment/Other: Patient is a 69-year-old male with medical history significant for CVA with residual left-sided hemiparesis, hyperlipidemia, hypertension, hypothyroidism, urinary retention, BPH and chronic issues with constipation who presented to the ED with hypotension. He lives alone but has a caregiver who comes to his house daily. Over the past 2 to 3 days his blood pressure has been low. He has blood pressure machine at home and takes his pressures daily. He reports that 3 days ago it was in the 90s but it has been persistently low in the 70's today. As a result he called EMS who verified this and decided to bring him to the emergency room. En route he was given 1 L of lactated Ringer bolus. In the ED he was found to have a SBP in the 80's, WBC of 25 and lactic acid of 3.3. UA indicated that he had a UTI. As a result he was presented for admission for further treatment. At bedside his mentation is intact. He denies chest pain, dyspnea, abdominal pain, nausea or vomiting. He reports chills and feeling clammy. History - Past Medical History Cardiovascular: reports: Hypertension, High cholesterol Respiratory: reports: None Neuro: reports: CVA (with residual left-sided hemiparesis) Endocrine/Autoimmune: reports: None, HyPOthyroidism : reports: Benign prostate hypertrophy Psych: reports: None Musculoskeletal: reports: Chronic back pain MRSA Hx?: No - Family & Social History Family History Comment/Other: Patient's mother of uterine cancer Social History Notes: He lives alone but has a caregiver who comes to the house daily. He gets around using a wheelchair. However he can bear some weight on his legs despite his left-sided hemiparesis. He quit smoking when he was diagnosed with a stroke. He denies alcohol or recreational substances. - POLST Patient has POLST: No POLST Status: Full Code Meds/Allgy - Home Medications Home Medications: Ambulatory Orders Medication Instructions Recorded Confirmed Aspirin [Aspir 81] 81 mg PO DAILY 06/08/13 03/29/20 Atorvastatin [Lovastatin] 40 mg PO HS 06/08/13 03/29/20 Baclofen [Lioresal] 10 mg PO TID 06/08/13 03/29/20 Docusate Sodium 100Mg Capsule 100 mg PO BID 06/08/13 03/29/20 [Colace] Doxazosin [Cardura] 8 mg PO DAILY 06/08/13 07/23/18 Metoprolol Tartrate [Lopressor] 25 mg PO BID 06/08/13 03/29/20 Potassium Chloride 20 meq PO DAILY 06/08/13 03/29/20 Cefdinir 300 mg PO BID #14 capsule 07/23/18 Levothyroxine Sodium [Synthroid] 112 mcg PO DAILY 07/23/18 03/29/20 Chlorthalidone 25 mg PO DAILY 03/29/20 03/29/20 - Allergies Allergies/Adverse Reactions: Allergies Allergy/AdvReac Type Severity Reaction Status Date / Time No Known Drug Allergies Allergy Verified 03/29/20 21:48 Review of Systems - Constitutional Constitutional: reports: Fever, Chills, Weakness - Eyes Eyes: denies: Pain, Vision loss, Dipolpia - Ears, Nose & Throat Ears, Nose & Throat: denies: Ear pain, Sore throat - Cardiovascular Cariovascular: reports: Lightheadedness. denies: Irregular heart rate, Palpitations, Chest pain, Edema - Respiratory Respiratory: denies: Cough, Sputum production, Wheezing, SOB at rest, SOB with exertion - Gastrointestinal Gastrointestinal: reports: Constipation. denies: Abdominal pain, Nausea, Vomiting - Genitourinary Genitourinary: denies: Dysuria, Frequency, Urgency - Musculoskeletal Musculoskeletal: denies: Muscle pain, Back pain, Muscle aches, Stiffness - Integumentary Integumentary: denies: Rash, Pruritis, Lesions - Neurological Neurological: reports: General weakness. denies: Focal weakness, Headache - Psychiatric Psychiatric: denies: Depression, Anxiety - Endocrine Endocrine: denies: Polyuria, Polydypsia - Hematologic/Lymphatic Hematologic/Lymphatic: denies: Anemia, Bruising, Petechiae Prior Level of Functionality: Patient lives alone. He gets around using a wheelchair due to residual left- sided weakness from a CVA. He has a caregiver who comes in daily to assist with activities of daily living. Exam - Vital Signs Vital Signs: Vital Signs x48h Temp Pulse Resp BP Pulse Ox 03/30/20 00:00 37.9 C 90 23 96/55 L 94 12/16/20 23:52 36.8 C 91 21 91/56 L 95 03/29/20 23:30 36.8 C 93 22 92/50 L 94 03/29/20 23:22 36.8 C 95 20 85/53 L 95 03/29/20 23:20 38.6 C H 94 20 89/54 L 95 03/29/20 23:00 38.6 C H 95 20 89/51 L 95 03/29/20 22:42 38.6 C H 99 20 81/60 L 95 03/29/20 22:41 38.4 C H 03/29/20 22:30 37.6 C 100 20 107/91 H 95 03/29/20 22:25 38.6 C H 94 20 90/59 L 95 03/29/20 22:21 37.6 C 94 19 79/43 L 96 03/29/20 22:17 37.6 C 96 19 82/48 L 96 03/29/20 22:14 37.6 C 95 19 79/49 L 95 03/29/20 22:06 37.6 C 95 19 82/49 L 95 03/29/20 21:53 37.6 C 98 19 87/58 L 95 03/29/20 21:48 37.6 C 98 19 87/58 L 95 - Physical Exam General Appearance: positive: No acute distress, Alert Eyes Bilateral: positive: PERRL, EOMI ENT: positive: ENT inspection nml Neck: positive: No JVD, Trachea midline Respiratory: positive: Chest non-tender, No respiratory distress, Breath sounds nml. negative: Wheezes, Rales, Rhonchi Cardiovascular: positive: No murmur, Tachycardia Abdomen: positive: Non-tender, Nml bowel sounds, No distention. negative: Guarding, Rebound Back: positive: Nml inspection Skin: positive: Color nml, No rash, Warm, Dry Extremities: positive: Non-tender, Full ROM, Nml appearance, No pedal edema Neurologic/Psychiatric: positive: Oriented x3, Mood/affect nml Sepsis Event Note (H) - Evaluation Current Stage of Sepsis: Sepsis Possible source of Sepsis: positive: Genitourinary - Sepsis Criteria Sepsis Criteria: Recorded Temperature greater than 38.3C or Less than 36C, Recorded Heart Rate greater than 90 bpm, Recorded Respiratory Rate greater than 20, WBC count greater than 12,000 or less than 4000, SBP less than 90 mmHg, Metabolic: lactate > 2 mmol/L Conclusion/Plan - Problem List (1) Sepsis Conclusion/Plan: Systolic blood pressure was in the 80s. WBC 25, lactic acid 3.7, creatinine 3.3. Likely secondary to UTI. Patient was given a dose of vancomycin and Zosyn in the ED after blood cultures were obtained. We will continue Zosyn only for now. Patient was given approximately 3 L of lactated Ringer's in the ED. We will continue normal saline at 150 mils per hour. We will trend lactic acid. (2) UTI (urinary tract infection) Conclusion/Plan: Patient on Zosyn Patient receiving IV hydration. (3) KAYLAH (acute kidney injury) Conclusion/Plan: Likely due to prerenal and renal cause. Secondary to hypoperfusion due to septic state Patient's creatinine was 3.3. Anticipating improvement with treatment of infection. Patient is on Zosyn. Patient is also receiving IV hydration with normal saline. (4) Renal calculi Conclusion/Plan: Nonobstructing. There was no hydronephrosis noted on CT scan of abdomen pelvis without contrast. (5) Hyperlipidemia Conclusion/Plan: On atorvastatin 40 mg p.o. nightly (6) Hypertension Conclusion/Plan: Currently patient is hypotensive due to sepsis. We will hold metoprolol, doxazosin and chlorthalidone. (7) Hypothyroidism Conclusion/Plan: Resume patient's Synthroid 112 mcg p.o. daily (8) BPH (benign prostatic hyperplasia) Conclusion/Plan: On doxazosin. Patient currently hypotensive. Will hold for now and resume when appropriate to do so. - Lab Results Fish Bones: 03/29/20 22:02 03/29/20 22:02 Core Measures - Anticipated LOS I expect patient to be DC'd or transferred within 96 hours.: Yes - DVT/VTE - Prophylaxis VTE/DVT Device ordered at admit?: Yes
[2020-03-30 00:25] LABS: C. PNEUMONIAE- RESP PCR PANEL NOT DETECTED
[2020-03-30] MEDS: SODIUM CHLORIDE 0.9% 1,000 ML IV SCH ×4 (01:19→21:00)
[2020-03-30] MEDS: SODIUM CHLORIDE FLUSH 0.9% 10 ML SYRINGE IVP SCH ×3 (01:21→18:46)
[2020-03-30] MEDS: PIPERACILLIN/TAZOBACTAM 3.375 GM in SODIUM CHLORIDE 0.9% MINIBAG 100 ML IV SCH ×4 (03:08→20:03)
[2020-03-30 04:44] LABS: BASOPHILS % (AUTO) 0.3 %; EOSINOPHILS % (AUTO) 0.3 %; HGB - HEMOGLOBIN 13.3 g/dL (14.0-18.0); LYMPHOCYTES % (AUTO) 2.5 %; MEAN CORPUSCULAR HEMOGLOBIN 30.9 pg (27.0-31.0); MEAN CORPUSCULAR HGB CONC 33.7 g/dL (32.0-36.0); MEAN CORPUSCULAR VOLUME 91.9 fL (80.0-94.0); MEAN PLATELET VOLUME 10.2 fL (7.4-11.4); MONOCYTES % (AUTO) 5.5 %; NEUTROPHILS % (AUTO) 86.3 %; PLT - PLATELET COUNT 112 10^3/uL (130-450); WHITE BLOOD COUNT 29.9 x10^3/uL (4.8-10.8)
[2020-03-30 04:46] LABS: ABNORMAL LYMPHS % (MANUAL) 0 %
[2020-03-30 05:02] LABS: CREATININE 3.3 mg/dL (0.6-1.2)
[2020-03-30 06:07] LABS: BAND NEUTROPHILS % (MANUAL) 61 %; BASOPHILS # (MANUAL) 0.3 10^3/uL (0-0.1); BASOPHILS % (MANUAL) 1 %; DIFFERENTIAL COMMENT MANUAL DIFFERENTIAL; LYMPHOCYTES # (MANUAL) 0.6 10^3/uL (1.5-3.5); LYMPHOCYTES % (MANUAL) 2 %; METAMYELOCYTES % (MANUAL) 1 %; MONOCYTES # (MANUAL) 1.5 10^3/uL (0.0-1.0); MYELOCYTES % (MANUAL) 1 %; PLATELET ESTIMATE, MANUAL DECREASED (<130,000) (NORMAL); RBC MORPHOLOGY (MULTIPLE) NORMAL APPEARANCE (NORMAL)
[2020-03-30] MEDS ORDERED: SODIUM CHLORIDE 0.9% 1,000 ML IV ONE (06:15)
[2020-03-30] MEDS: PANTOPRAZOLE 40 MG VIAL IVP SCH (06:36)
--- NOTE | 2020-03-30 07:51 | XRAY Report ---
PROCEDURE: Chest 1 View X-Ray INDICATIONS: Chest Pain TECHNIQUE: One view of the chest was acquired. COMPARISON: 06/08/2013 FINDINGS: Surgical changes and devices: None. Lungs and pleura: No pleural effusions or pneumothorax. Lungs are clear. Mediastinum: Mediastinal contours appear normal. Heart size is normal. Bones and chest wall: No suspicious bony lesions. Overlying soft tissues appear unremarkable. IMPRESSION: No acute cardiopulmonary disease process. Reviewed by: Tonja Paez MD, PhD on 03/30/2020 7:50 AM [facility] Approved by: Tonja Paez MD, PhD on 03/30/2020 7:50 AM [facility] Station ID: [id number]
[2020-03-30] MEDS: SENNA 8.6 MG TABLET PO SCH (08:43)
[2020-03-30] MEDS: ENOXAPARIN 30 MG/0.3 ML SYRINGE SUBQ SCH (08:44)
[2020-03-30] MEDS: DOCUSATE SODIUM 250 MG CAPSULE PO SCH (08:44)
[2020-03-30] MEDS: ACETAMINOPHEN 325 MG TABLET PO PRN (08:50)
--- NOTE | 2020-03-30 09:00 | CT Report ---
PROCEDURE: Abdomen/Pelvis WO INDICATIONS: hematuria, sepsis TECHNIQUE: Noncontrast 5 mm thick sections acquired from the diaphragms to the symphysis. 5 mm coronal and sagi ttal reformats were then performed. For radiation dose reduction, the following was used: automated exposure control, adjustment of mA and/or kV according to patient size. COMPARISON: None. FINDINGS: Image quality: Excellent. ABDOMEN: Lung bases: Lung bases are clear. Heart size is normal. Solid organs: Liver and spleen are normal in size. What appears to be a water density cyst is presen t at the posterior hepatic segment inferior margin Gallbladder contains a calcified single dependent layering gallstone, densely calcified Pancreas is normal in contours. No adrenal nodules. Kidneys are normal in size, without hydronephrosis or right-sided nephrolithiasis. There is left-sided nephr olithiasis comprised of a punctate calculus at the middle third calyx posteriorly, and then within th e renal pelvis and central renal collecting system more inferiorly there with radiodensity measuring up to 912 Hounsfield units. This is associated with a mild degree of hydronephrosis at the left kidne y, and calculi also are seen within the lower third collecting system. The largest calculus measures up to 1.8 cm in diameter at the renal pelvis. There is asymmetric mild edema around the left kidney w hen compared to the appearance on the right. Peritoneum and bowel: Unenhanced bowel loops demonstrate normal wall thickness and caliber. No free fluid or air. Nodes and vessels: No retroperitoneal or mesenteric adenopathy by size criteria. Aorta and inferior vena cava are normal in caliber. Miscellaneous: No ventral hernias. PELVIS: Genitourinary: Bladder wall thickness is normal. Miscellaneous: No inguinal hernias or adenopathy. Bones: No suspicious bony lesions. No vertebral body compression fractures. IMPRESSION: Slight hydronephrosis at the left kidney but with perinephric mild edema associated with large centra l renal calculi including the renal pelvis calculus measuring up to 1.8 cm in diameter. Moderately large hepatic cyst measuring water in density at the inferior right posterior hepatic segm ent. Single small densely calcified gallstone layers dependently within the gallbladder lumen. Alternative ly the appearance could be produced by 2 adjacent 2 mm calculi. No biliary distention or evidence of acute cholecystitis. Reviewed by: Neto Barker MD on 03/30/2020 8:58 AM PST Approved by: Neto Barker MD on 03/30/2020 8:58 AM PST Station ID: [id number]
--- NOTE | 2020-03-30 14:31 | PHARMACY PROGRESS NOTE ---
- Best Possible Medication History Admit Date and Time: 03/30/20 0005 Processed by: Pharmacy Medication History completed: Yes Patient Interview: Completed Secondary Source(s): Physician records, Pharmacy records, Insurance records (PATIENT INTERVIEWED BY TUBE LASER OPERATOR. PATIENT ABLE TO CONFIRM HOME MEDICATIONS) As the person ultimately responsible for medication therapy, providers are able to order a medication from an existing home medication list in [facility] via the "Reconcile Routine" prior to Confirmation of that medication by business support. Such practice is discouraged except when the physician, in their clinical judgment, deems that a medical need exists for a medication without regard to previous use.
[2020-03-31] MEDS ORDERED: VANCOMYCIN INJ 1.75 GM in SODIUM CHLORIDE 0.9% 500 ML IV SCH (01:00)
[2020-03-31] MEDS: SODIUM CHLORIDE FLUSH 0.9% 10 ML SYRINGE IVP SCH ×3 (01:08→17:03)
[2020-03-31] MEDS: PIPERACILLIN/TAZOBACTAM 3.375 GM in SODIUM CHLORIDE 0.9% MINIBAG 100 ML IV SCH ×3 (03:43→20:30)
[2020-03-31] MEDS: SODIUM CHLORIDE 0.9% 1,000 ML IV SCH ×3 (03:43→17:03)
[2020-03-31 05:14] LABS: BASOPHILS # (AUTO) 0.1 10^3/uL (0.0-0.1); BASOPHILS % (AUTO) 0.6 %; EOSINOPHILS # (AUTO) 0.1 10^3/uL (0.0-0.7); EOSINOPHILS % (AUTO) 0.4 %; HGB - HEMOGLOBIN 12.6 g/dL (14.0-18.0); LYMPHOCYTES # (AUTO) 0.7 10^3/uL (1.5-3.5); LYMPHOCYTES % (AUTO) 3.6 %; MEAN CORPUSCULAR HEMOGLOBIN 30.1 pg (27.0-31.0); MEAN CORPUSCULAR HGB CONC 31.4 g/dL (32.0-36.0); MEAN CORPUSCULAR VOLUME 95.7 fL (80.0-94.0); MEAN PLATELET VOLUME 11.3 fL (7.4-11.4); MONOCYTES # (AUTO) 1.1 10^3/uL (0.0-1.0); MONOCYTES % (AUTO) 5.6 %; NEUTROPHILS # (AUTO) 15.9 10^3/uL (1.5-6.6); NEUTROPHILS % (AUTO) 78.9 %; PLT - PLATELET COUNT 92 10^3/uL (130-450); RED BLOOD COUNT 4.19 10^6/uL (4.70-6.10); WHITE BLOOD COUNT 20.1 x10^3/uL (4.8-10.8)
[2020-03-31 05:26] LABS: CALCIUM 7.6 mg/dL (8.5-10.3)
[2020-03-31 05:35] LABS: PHOSPHORUS 2.5 mg/dL (2.5-4.6)
[2020-03-31 05:43] LABS: PLATELET ESTIMATE, MANUAL DECREASED (<130,000) (NORMAL); PLATELET MORPHOLOGY NORMAL APPEARANCE (NORMAL); RBC MORPHOLOGY (MULTIPLE) NORMAL APPEARANCE (NORMAL)
[2020-03-31] MEDS: SODIUM CHLORIDE FLUSH 0.9% 10 ML SYRINGE IVP PRN (06:35)
[2020-03-31] MEDS: PANTOPRAZOLE 40 MG VIAL IVP SCH (06:35)
--- NOTE | 2020-03-31 08:00 | PROVIDER PROGRESS NOTE ---
Assessment/Plan - Problem List (1) Bacterial infection due to Proteus mirabilis Assessment/Plan: WBC count improving daily Continue Zosyn iv. Await sensitivities. (2) Gram-positive bacteremia Assessment/Plan: Vancomycin was added. Await identification of this bacteria and sensitivities (3) UTI (urinary tract infection) Assessment/Plan: Patient was started on iv Zosyn (due to KAYLAH). Will decrease IV hydration since he feels better and eating 100%. He will need 21 day course of antibiotics (for complex UTI, male, prostatic hypertrophy). (4) KAYLAH (acute kidney injury) Assessment/Plan: Likely multifactorial: due to prerenal from dehydration and hypoperfusion plus possibly obstructive cause given BPH. Patient's creatinine was 3.3 down to 2.0 today. Anticipating improvement with treatment of infection. Will decrease but not stop IV hydration with normal saline. Avoid nephrotoxins. Follow BMP daily. (5) BPH (benign prostatic hyperplasia) Assessment/Plan: On was Doxazosin pre-admission. It was on hold due to hypotension. Will resume Doxazosin today and then remove Henry later today. He will need 21 day course of antibiotics for prostate penetration. (6) Renal calculi Assessment/Plan: Nonobstructing. There was no hydronephrosis noted on CT scan of abdomen pelvis without contrast. (7) Hemiparesis affecting nondominant side as late effect of stroke Assessment/Plan: Will transfer out of ICU, can get OOB with his normal BP. Will order PT and OT evals. He lives alone (but has caregivers), so may need more help after Dch. (8) Hyperlipidemia Assessment/Plan: On atorvastatin 40 mg p.o. nightly, continued (9) Hypothyroidism Assessment/Plan: TSH was not yet done, will check TSH Resume patient's Synthroid 112 mcg p.o. daily, adjust per TSH result if needed. (10) Hx of essential hypertension Assessment/Plan: Yesterday patient was hypotensive due to sepsis. We held metoprolol, doxazosin and chlorthalidone. Will resume the Doxazosin today for BPH, await the other 2 BP meds resumption since BP not hypertensive but is normal today at 130 systolic. Will change diet to low salt. (11) Septic shock Assessment/Plan: Resolved. Will transfer out of ICU today. - Current Meds Current Meds: Current Medications Generic Name Dose Route Start Last Admin Trade Name Freq PRN Reason Stop Dose Admin Acetaminophen 650 mg 03/30/20 00:05 03/30/20 08:50 Acetaminophen 325 Mg Tablet PO 650 mg Q4HR PRN Administration Pain 1 to 4 Docusate Sodium 250 - 500 mg 03/30/20 09:00 03/30/20 08:44 Docusate Sodium 250 Mg Capsule PO 250 mg DAILY ANNABELLE Administration Enoxaparin Sodium 30 mg 03/30/20 09:00 03/30/20 08:44 Enoxaparin 30 Mg/0.3 Ml Syringe SUBQ 30 mg DAILY ANNABELLE Administration Sodium Chloride 1,000 mls @ 150 mls/hr 03/30/20 01:00 03/31/20 03:43 Normal Saline 0.9% IV 150 mls/hr .Q6H40M ANNABELLE Administration Piperacillin Sod/Tazobactam 100 mls @ 25 mls/hr 03/30/20 12:00 03/31/20 07:48 Sod 3.375 gm/ Sodium Chloride IV Infused Q8H ANNABELLE Infusion Vancomycin HCl 1.75 gm/ Sodium 500 mls @ 250 mls/hr 03/31/20 01:00 03/31/20 03:20 Chloride IV Infused Q48H ANNABELLE Infusion Pantoprazole Sodium 40 mg 03/30/20 07:00 03/31/20 06:35 Pantoprazole 40 Mg Vial IVP 40 mg QDAC ANNABELLE Administration Senna 8.6 - 17.2 mg 03/30/20 09:00 03/30/20 08:43 Senna 8.6 Mg Tablet PO 8.6 mg DAILY ANNABELLE Administration Sodium Chloride 10 ml 03/30/20 01:00 03/31/20 01:08 Sodium Chloride Flush 0.9% 10 Ml Syringe IVP 10 ml 0100,0900,1700 ANNABELLE Administration Sodium Chloride 10 ml 03/30/20 00:05 03/31/20 06:35 Sodium Chloride Flush 0.9% 10 Ml Syringe IVP 10 ml PRN PRN Administration NEEDED PER PROVIDER ORDERS - Lab Result Fish Bone Diagrams: 03/31/20 04:40 03/31/20 04:40 - Additional Planning My Orders: My Active Orders 03/31/20 07:57 Telemetry- [RC] Q4HR Transfer [Admit \ Transfer \ Status] [RC] .ONCE Subjective - Subjective Patient Reports: Feeling Better, No Complaints Objective Vital Signs: Vital Signs - 24 hr 03/30/20 03/30/20 03/30/20 08:00 08:30 10:00 Temperature 36.7 C Heart Rate [89] 89 94 86 Heart Rate [ 89 Monitoring electrodes] Respiratory 21 22 22 Rate Blood Pressure [Left Brachial artery] Blood Pressure 88/54 L 114/72 74/61 L [Right Brachial artery] O2 Saturation 97 100 100 03/30/20 03/30/20 03/30/20 10:30 11:00 12:00 Temperature 36.6 C Heart Rate [89] 86 89 84 Heart Rate [ 84 Monitoring electrodes] Respiratory 22 22 Rate Blood Pressure [Left Brachial artery] Blood Pressure 113/66 100/66 105/61 [Right Brachial artery] O2 Saturation 99 100 96 03/30/20 03/30/20 03/30/20 13:00 14:00 15:00 Temperature Heart Rate [89] 93 88 Heart Rate [ 95 Monitoring electrodes] Respiratory 24 22 22 Rate Blood Pressure [Left Brachial artery] Blood Pressure 97/60 95/62 104/61 [Right Brachial artery] O2 Saturation 97 97 97 03/30/20 03/30/20 03/30/20 16:00 17:00 18:00 Temperature 37.1 C Heart Rate [89] 96 Heart Rate [ 92 99 Monitoring electrodes] Respiratory 21 22 23 Rate Blood Pressure 84/55 L [Left Brachial artery] Blood Pressure 89/54 L 97/59 L [Right Brachial artery] O2 Saturation 95 98 94 03/30/20 03/30/20 03/30/20 19:00 20:00 21:00 Temperature 37.0 C Heart Rate [89] 100 Heart Rate [ 101 H 95 Monitoring electrodes] Respiratory 21 23 24 Rate Blood Pressure 110/60 119/52 L 106/92 H [Left Brachial artery] Blood Pressure [Right Brachial artery] O2 Saturation 99 98 98 03/30/20 03/30/20 03/31/20 22:00 23:00 00:00 Temperature Heart Rate [89] Heart Rate [ 92 94 90 Monitoring electrodes] Respiratory 22 21 23 Rate Blood Pressure 101/92 H 101/56 L 106/58 L [Left Brachial artery] Blood Pressure [Right Brachial artery] O2 Saturation 96 100 97 03/31/20 03/31/20 03/31/20 01:00 02:00 03:00 Temperature 37.2 C Heart Rate [89] Heart Rate [ 94 88 91 Monitoring electrodes] Respiratory 21 20 18 Rate Blood Pressure 113/58 L 111/61 120/74 [Left Brachial artery] Blood Pressure [Right Brachial artery] O2 Saturation 98 96 97 03/31/20 03/31/20 03/31/20 04:00 05:00 06:00 Temperature 37.2 C Heart Rate [89] Heart Rate [ 83 87 85 Monitoring electrodes] Respiratory 20 20 19 Rate Blood Pressure 115/64 110/64 117/67 [Left Brachial artery] Blood Pressure [Right Brachial artery] O2 Saturation 96 97 97 03/31/20 07:00 Temperature Heart Rate [89] Heart Rate [ 78 Monitoring electrodes] Respiratory 22 Rate Blood Pressure 130/74 [Left Brachial artery] Blood Pressure [Right Brachial artery] O2 Saturation 96 Oxygen O2 Source Room air I&O (Last 24 Hrs): Intake and Output Totals x24h 03/29/20 03/30/20 03/31/20 23:59 23:59 23:59 Intake Total 100 39425 2200 Output Total 2455 2353 Balance 100 7995 -153 General: Alert, Oriented x3 HEENT: PERRLA, Mucous membr. moist/pink Neck: Supple, No JVD Neuro: Alert, Other (L leg weak 3/5) Cardiovascular: Regular rate, No murmurs Respiratory: No respiratory distress, Breath sounds nml Abdomen: Normal bowel sounds, Soft Extremities: No edema - Results Results: Laboratory Results WBC 20.1 x10^3/uL (4.8-10.8) H 03/31/20 04:40 RBC 4.19 10^6/uL (4.70-6.10) L 03/31/20 04:40 Hgb 12.6 g/dL (14.0-18.0) L 03/31/20 04:40 Hct 40.1 % (42.0-52.0) L 03/31/20 04:40 MCV 95.7 fL (80.0-94.0) H 03/31/20 04:40 MCH 30.1 pg (27.0-31.0) 03/31/20 04:40 MCHC 31.4 g/dL (32.0-36.0) L 03/31/20 04:40 RDW 13.0 % (12.0-15.0) 03/31/20 04:40 Plt Count 92 10^3/uL (130-450) L 03/31/20 04:40 MPV 11.3 fL (7.4-11.4) 03/31/20 04:40 Neut # (Auto) 15.9 10^3/uL (1.5-6.6) H 03/31/20 04:40 Lymph # (Auto) 0.7 10^3/uL (1.5-3.5) L 03/31/20 04:40 Beltrami # (Auto) 1.1 10^3/uL (0.0-1.0) H 03/31/20 04:40 Eos # (Auto) 0.1 10^3/uL (0.0-0.7) 03/31/20 04:40 Baso # (Auto) 0.1 10^3/uL (0.0-0.1) 03/31/20 04:40 Absolute Nucleated RBC 0.00 x10^3/uL 03/31/20 04:40 Total Counted 100 03/30/20 04:25 Band Neuts % (Manual) 61 % (0-10) H 03/30/20 04:25 Abnorm Lymph % (Manual) 0 % 03/30/20 04:25 Metamyelocytes % 1 % (-0) H 03/30/20 04:25 Myelocytes % 1 % (-0) H 03/30/20 04:25 Nucleated RBC % 0.0 /100WBC 03/31/20 04:40 Neutrophils # (Manual) 26.9 10^3/uL (1.5-6.6) H 03/30/20 04:25 Lymphocytes # (Manual) 0.6 10^3/uL (1.5-3.5) L 03/30/20 04:25 Monocytes # (Manual) 1.5 10^3/uL (0.0-1.0) H 03/30/20 04:25 Eosinophils # (Manual) 0.0 10^3/uL (0-0.7) 03/30/20 04:25 Basophils # (Manual) 0.3 10^3/uL (0-0.1) H 03/30/20 04:25 Differential Comment MANUAL DIFFERENTIAL 03/30/20 04:25 Manual Slide Review Indicated 03/31/20 04:40 Platelet Estimate DECREASED (<130,000) (NORMAL) 03/31/20 04:40 Platelet Morphology NORMAL APPEARANCE (NORMAL) 03/31/20 04:40 RBC Morph Micro Appear NORMAL APPEARANCE (NORMAL) 03/31/20 04:40 Sodium 141 mmol/L (135-145) 03/31/20 04:40 Potassium 3.5 mmol/L (3.5-5.0) 03/31/20 04:40 Chloride 113 mmol/L (101-111) H 03/31/20 04:40 Carbon Dioxide 19 mmol/L (21-32) L 03/31/20 04:40 Anion Gap 9.0 (6-13) 03/31/20 04:40 BUN 32 mg/dL (6-20) H 03/31/20 04:40 Creatinine 2.0 mg/dL (0.6-1.2) H 03/31/20 04:40 Estimated GFR (MDRD) 33 (>89) L 03/31/20 04:40 Glucose 114 mg/dL (70-100) H 03/31/20 04:40 Lactic Acid 2.2 mmol/L (0.5-2.2) 03/30/20 10:59 Calcium 7.6 mg/dL (8.5-10.3) L 03/31/20 04:40 Phosphorus 2.5 mg/dL (2.5-4.6) 03/31/20 04:40 Magnesium 2.0 mg/dL (1.7-2.8) 03/31/20 04:40 Total Bilirubin 1.0 mg/dL (0.2-1.0) 03/29/20 22:02 AST 27 IU/L (10-42) 03/29/20 22:02 ALT 22 IU/L (10-60) 03/29/20 22:02 Alkaline Phosphatase 38 IU/L (42-121) L 03/29/20 22:02 Total Protein 5.6 g/dL (6.7-8.2) L 03/29/20 22:02 Albumin 2.8 g/dL (3.2-5.5) L 03/30/20 04:25 Globulin 2.7 g/dL (2.1-4.2) 03/29/20 22:02 Albumin/Globulin Ratio 1.1 (1.0-2.2) 03/29/20 22:02 Lipase 19 U/L (22-51) L 03/29/20 22:02 Urine Color DARK YELLOW 03/29/20 22:39 Urine Clarity CLOUDY (CLEAR) 03/29/20 22:39 Urine pH 5.0 PH (5.0-7.5) 03/29/20 22:39 Ur Specific [place] >=1.030 (1.002-1.030) H 03/29/20 22:39 Urine Protein 100 mg/dL (NEGATIVE) H 03/29/20 22:39 Urine Glucose (UA) NEGATIVE mg/dL (NEGATIVE) 03/29/20 22:39 Urine Ketones 15 mg/dL (NEGATIVE) H 03/29/20 22:39 Urine Occult Blood LARGE (NEGATIVE) H 03/29/20 22:39 Urine Nitrite NEGATIVE (NEGATIVE) 03/29/20 22:39 Urine Bilirubin NEGATIVE (NEGATIVE) 03/29/20 22:39 Urine Urobilinogen 0.2 (NORMAL) E.U./dL (NORMAL) 03/29/20 22:39 Ur Leukocyte Esterase MODERATE (NEGATIVE) H 03/29/20 22:39 Urine RBC TNTC /HPF (0-5) H 03/29/20 22:39 Urine WBC >25 /HPF (0-3) H 03/29/20 22:39 Ur Squamous Epith Cells FEW Squamous (<= Few) 03/29/20 22:39 Amorphous Sediment Few /LPF 03/29/20 22:39 Urine Bacteria Few /HPF (None Seen) 03/29/20 22:39 Urine Casts 0-2 Course Granular /LPF0-2 RBC Casts /LPF 03/29/20 22:39 Urine Casts 0-2 Course Granular /LPF0-2 RBC Casts /LPF 03/29/20 22:39 Urine Culture Comments INDICATED 03/29/20 22:39 Nasal Adenovirus (PCR) NOT DETECTED 03/29/20 22:55 Nasal B. parapertussis DNA (PCR) NOT DETECTED 03/29/20 22:55 Nasal Coronavir 229E PCR NOT DETECTED 03/29/20 22:55 Nasal Coronavir HKU1 PCR NOT DETECTED 03/29/20 22:55 Nasal Coronavir NL63 PCR NOT DETECTED 03/29/20 22:55 Nasal Coronavir OC43 PCR NOT DETECTED 03/29/20 22:55 Nasal Enterovir/Rhinovir PCR NOT DETECTED 12 22:55 Nasal Influenza B PCR NOT DETECTED 12 22:55 Nasal Influenza A PCR NOT DETECTED 1220 22:55 Nasal Parainfluen 1 PCR NOT DETECTED 1220 22:55 Nasal Parainfluen 2 PCR NOT DETECTED 12 22:55 Nasal Parainfluen 3 PCR NOT DETECTED 1220 22:55 Nasal Parainfluen 4 PCR NOT DETECTED 1220 22:55 Nasal RSV (PCR) NOT DETECTED 03/29/20 22:55 Nasal Screen MRSA (PCR) NEGATIVE (NEGATIVE) 03/30/20 00:50 Nasal B.pertussis DNA PCR NOT DETECTED 20 22:55 Nasal C.pneumoniae (PCR) NOT DETECTED 03/29/20 22:55 Isreal Human Metapneumo PCR NOT DETECTED 03/29/20 22:55 Nasal M.pneumoniae (PCR) NOT DETECTED 03/29/20 22:55 Nasal SARS-CoV-2 (PCR) NOT DETECTED 03/29/20 22:55 Sepsis Event Note (H) - Evaluation Current Stage of Sepsis: Sepsis Possible source of Sepsis: positive: Genitourinary - Sepsis Criteria Sepsis Criteria: Recorded Temperature greater than 38.3C or Less than 36C, Recorded Heart Rate greater than 90 bpm, Recorded Respiratory Rate greater than 20, WBC count greater than 12,000 or less than 4000, SBP less than 90 mmHg, Metabolic: lactate > 2 mmol/L
--- NOTE | 2020-03-31 09:05 | PHARMACY PROGRESS NOTE ---
- Therapy Status Vancomycin regimen day #: 1 Therapy status: Awaiting steady state Basis for treatment: Empirical Treatment indication: Gram positive bacteremia Trough goal: 15-20 Concurrent antibiotics: Zosyn - KAYLAH Risk Risk level for Acute Kidney Injury: Moderate Acute Kidney Injury risk factors: Piperacillin/Tozobactam, Baseline CrCl <50, Wt >100kg or BMI >40, Goal trough >15, Chronic baseline hypertension, Diabetes, Admission to ICU - Monitoring and Recommendation Clinical response to treatment: I&O Previous 24 hours 03/29/20 03/30/20 03/31/20 23:59 23:59 23:59 Intake Total 100 48533 2450 Output Total 2455 1703 Balance 100 7995 -93 Lab Results 03/31/20 03/30/20 03/29/20 04:40 04:25 22:02 BUN 32 H 36 H 30 H Creatinine 2.0 H 3.3 H 3.3 H Estimated GFR (MDRD) 33 L 19 L 19 L Cultures 03/29/20 23:04 Blood - Left Hand Blood Culture - Preliminary NO GROWTH AFTER 1 DAY 03/29/20 22:44 Blood - Right Hand Blood Culture (PCR) - Final 03/29/20 22:44 Blood - Right Hand Blood Culture - Preliminary 03/29/20 22:39 Urine,Clean Catch Urine Culture - Preliminary CULTURE IN PROGRESS. RESULTS TO FOLLOW. Monitoring plan: Daily serum creatinine, Draw trough early, Suggest ongoing fluid replacement Next trough due prior to maintenance dose #: 2 Next trough due (date/time): 04/02/20 @ 0830 Areas for additional monitoring: IV to PO when appropriate, Therapy de- escalation based on culture results Pharmacy recommendation: Continue current regime
[2020-03-31] MEDS: ENOXAPARIN 30 MG/0.3 ML SYRINGE SUBQ SCH (09:36)
[2020-03-31] MEDS: ASPIRIN EC 81 MG TABLET PO SCH (09:36)
[2020-03-31] MEDS: SENNA 8.6 MG TABLET PO SCH (09:39)
[2020-03-31] MEDS: DOCUSATE SODIUM 250 MG CAPSULE PO SCH (09:40)
[2020-03-31] MEDS: DOCUSATE SODIUM 100 MG CAPSULE PO SCH ×2 (13:12→20:31)
[2020-03-31] MEDS: BACLOFEN 10 MG TABLET PO SCH ×2 (14:18→20:31)
[2020-03-31] MEDS: SACCHAROMYCES BOULARDII 250 MG CAPSULE PO SCH (17:02)
[2020-03-31] MEDS: ATORVASTATIN 40 MG TABLET PO SCH (20:31)
[2020-03-31] MEDS: DOXAZOSIN 4 MG TABLET PO SCH (20:31)
[2020-04-01] MEDS: SODIUM CHLORIDE FLUSH 0.9% 10 ML SYRINGE IVP SCH ×4 (00:01→23:45)
[2020-04-01] MEDS: SODIUM CHLORIDE FLUSH 0.9% 10 ML SYRINGE IVP PRN ×2 (00:06→06:13)
[2020-04-01] MEDS: ACETAMINOPHEN 325 MG TABLET PO PRN ×2 (00:20→21:46)
[2020-04-01] MEDS: PIPERACILLIN/TAZOBACTAM 3.375 GM in SODIUM CHLORIDE 0.9% MINIBAG 100 ML IV SCH ×2 (04:15→11:59)
[2020-04-01] MEDS: SODIUM CHLORIDE 0.9% 1,000 ML IV SCH ×2 (04:15→21:33)
[2020-04-01 05:44] LABS: BASOPHILS % (AUTO) 0.5 %; EOSINOPHILS % (AUTO) 1.2 %; HGB - HEMOGLOBIN 12.2 g/dL (14.0-18.0); LYMPHOCYTES % (AUTO) 5.4 %; MEAN CORPUSCULAR HEMOGLOBIN 30.2 pg (27.0-31.0); MEAN CORPUSCULAR HGB CONC 33.2 g/dL (32.0-36.0); MEAN CORPUSCULAR VOLUME 91.1 fL (80.0-94.0); MEAN PLATELET VOLUME 11.1 fL (7.4-11.4); MONOCYTES % (AUTO) 4.3 %; NEUTROPHILS % (AUTO) 84.8 %; PLT - PLATELET COUNT 110 10^3/uL (130-450); RED BLOOD COUNT 4.04 10^6/uL (4.70-6.10)
[2020-04-01 05:50] LABS: CALCIUM 8.1 mg/dL (8.5-10.3); CREATININE 1.4 mg/dL (0.6-1.2)
[2020-04-01 05:52] LABS: ABNORMAL LYMPHS % (MANUAL) 0 %
[2020-04-01] MEDS: BACLOFEN 10 MG TABLET PO SCH ×3 (06:13→21:33)
[2020-04-01] MEDS: PANTOPRAZOLE 40 MG VIAL IVP SCH (06:13)
[2020-04-01 06:27] LABS: BAND NEUTROPHILS % (MANUAL) 3 %; DIFFERENTIAL COMMENT MANUAL DIFFERENTIAL; EOSINOPHILS # (MANUAL) 0.3 10^3/uL (0-0.7); LYMPHOCYTES # (MANUAL) 0.8 10^3/uL (1.5-3.5); LYMPHOCYTES % (MANUAL) 5 %; MONOCYTES # (MANUAL) 1.1 10^3/uL (0.0-1.0); PLATELET ESTIMATE, MANUAL DECREASED (<130,000) (NORMAL); PLATELET MORPHOLOGY NORMAL APPEARANCE (NORMAL); RBC MORPHOLOGY (MULTIPLE) NORMAL APPEARANCE (NORMAL)
[2020-04-01] MEDS: DOCUSATE SODIUM 100 MG CAPSULE PO SCH ×2 (08:30→21:33)
[2020-04-01] MEDS: SENNA 8.6 MG TABLET PO SCH (08:30)
[2020-04-01] MEDS: ENOXAPARIN 30 MG/0.3 ML SYRINGE SUBQ SCH (08:31)
[2020-04-01] MEDS: SACCHAROMYCES BOULARDII 250 MG CAPSULE PO SCH ×2 (08:31→16:28)
[2020-04-01] MEDS: ASPIRIN EC 81 MG TABLET PO SCH (08:31)
[2020-04-01] MEDS ORDERED: VANCOMYCIN INJ 1 GM, VANCOMYCIN INJ 500 MG in SODIUM CHLORIDE 0.9% 500 ML IV SCH (09:00)
--- NOTE | 2020-04-01 13:05 | PROVIDER PROGRESS NOTE ---
Assessment/Plan - Problem List (1) Bacteremia Assessment/Plan: The blood has been identified as growing Proteus mirabilis. We are still awaiting the second set of blood cultures to assure they are negative with no growth after starting antibiotics 3 days ago. We will stop the IV antibiotics after 4 days of this and there is been no fever, he is out of septic shock, white blood count is improving. We will start oral antibiotics. Since the source is UTI, bacteremia does not jaguar a worse diagnosis even and complex UTI. Plan a 21-day course. Planning discharge tomorrow. (2) Bacterial infection due to Proteus mirabilis Assessment/Plan: Will tailor his antibiotics for the Proteus growing in the urine. A 21-day course is planned, will stop IV antibiotics and start Levaquin 750 mg daily. Continue Probiotic. (3) UTI (urinary tract infection) Assessment/Plan: As above in #2 (4) KAYLAH (acute kidney injury) Assessment/Plan: This patient's creatinine at presentation was 3, decreased to 2.2 yesterday and is 1.4 today. Partly this is from septic shock and hypoperfusion (ATN) and partly from obstruction with his prostate. The Henry was removed yesterday. We will decrease IV fluids today, wean to off. Check BMP tomorrow to assure it is not rising again since the Henry has been removed. Probable discharge home tomorrow (5) BPH (benign prostatic hyperplasia) Assessment/Plan: His tamsulosin dose has been resumed. Henry is out as of yesterday. He describes no complaints urinating. 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 statin (10) Hypothyroidism Assessment/Plan: TSH is at the lower end of acceptable. We will continue with his usual Synthroid replacement doses (11) Hx of essential hypertension Assessment/Plan: Patient was hypotensive at admission due to sepsis. We held metoprolol, doxazosin and chlorthalidone. Doxazosin twas resumed yesterday for BPH, still await the other 2 BP meds resumption, since BP not hypertensive but is normal today at 130 systolic. (12) Septic shock Assessment/Plan: Resolved. - Current Meds Current Meds: Current Medications Generic Name Dose Route Start Last Admin Trade Name Freq PRN Reason Stop Dose Admin Acetaminophen 650 mg 03/30/20 00:05 04/01/20 00:20 Acetaminophen 325 Mg Tablet PO 650 mg Q4HR PRN Administration Pain 1 to 4 Aspirin 81 mg 03/31/20 09:00 04/01/20 08:31 Aspirin Ec 81 Mg Tablet PO 81 mg DAILY ANNABELLE Administration Atorvastatin Calcium 40 mg 03/31/20 21:00 03/31/20 20:31 Atorvastatin 40 Mg Tablet PO 40 mg QPM ANNABELLE Administration Baclofen 10 mg 03/31/20 14:00 04/01/20 06:13 Baclofen 10 Mg Tablet PO 10 mg TID ANNABELLE Administration Docusate Sodium 100 mg 03/31/20 09:00 04/01/20 08:30 Docusate Sodium 100 Mg Capsule PO 100 mg BID ANNABELLE Administration Doxazosin Mesylate 8 mg 03/31/20 21:00 03/31/20 20:31 Doxazosin 4 Mg Tablet PO 8 mg QPM ANNABELLE Administration Enoxaparin Sodium 30 mg 03/30/20 09:00 04/01/20 08:31 Enoxaparin 30 Mg/0.3 Ml Syringe SUBQ 30 mg DAILY ANNABELLE Administration Piperacillin Sod/Tazobactam 100 mls @ 25 mls/hr 03/30/20 12:00 04/01/20 11:59 Sod 3.375 gm/ Sodium Chloride IV 25 mls/hr Q8H ANNABELLE Administration Vancomycin HCl 1 gm/ 500 mls @ 250 mls/hr 04/01/20 09:00 04/01/20 09:44 Vancomycin HCl 500 mg/ Sodium IV 250 mls/hr Chloride Q24H ANNABELLE Administration Sodium Chloride 1,000 mls @ 80 mls/hr 03/31/20 10:26 04/01/20 04:15 Normal Saline 0.9% IV 80 mls/hr .[id number] ANNABELLE Administration Pantoprazole Sodium 40 mg 03/30/20 07:00 04/01/20 06:13 Pantoprazole 40 Mg Vial IVP 40 mg QDAC ANNABELLE Administration Saccharomyces Boulardii 500 mg 03/31/20 17:00 04/01/20 08:31 Saccharomyces Boulardii 250 Mg Capsule PO 500 mg BIDWM ANNABELLE Administration Senna 8.6 - 17.2 mg 03/30/20 09:00 04/01/20 08:30 Senna 8.6 Mg Tablet PO 8.6 mg DAILY ANNABELLE Administration Sodium Chloride 10 ml 03/30/20 01:00 04/01/20 11:26 Sodium Chloride Flush 0.9% 10 Ml Syringe IVP Not Given 0100,0900,1700 ANNABELLE Sodium Chloride 10 ml 03/30/20 00:05 04/01/20 06:13 Sodium Chloride Flush 0.9% 10 Ml Syringe IVP 10 ml PRN PRN Administration NEEDED PER PROVIDER ORDERS - Lab Result Fish Bone Diagrams: 04/01/20 05:10 04/01/20 05:10 - Additional Planning My Orders: My Active Orders 03/31/20 14:00 Baclofen [Lioresal] 10 mg PO TID 03/31/20 17:00 Saccharomyces Boulardii [Florastor] 500 mg PO BIDWM 03/31/20 21:00 Atorvastatin [Lipitor] 40 mg PO QPM Doxazosin [Cardura] 8 mg PO QPM Subjective - Subjective Patient Reports: Feeling Better, Resting Comfortably, No Complaints Objective Vital Signs: Vital Signs - 24 hr 03/31/20 03/31/20 03/31/20 16:00 20:29 23:49 Temperature 36.9 C 37.5 C 36.9 C Heart Rate [ 90 90 91 Monitoring electrodes] Respiratory 20 20 16 Rate Blood Pressure 136/71 H 150/80 H 131/63 H [Left Brachial artery] O2 Saturation 97 95 94 04/01/20 04/01/20 04/01/20 05:00 09:00 11:00 Temperature 37.2 C 37.2 C Heart Rate [ 79 73 Monitoring electrodes] Respiratory 16 16 Rate Blood Pressure 125/65 112/72 135/83 H [Left Brachial artery] O2 Saturation 94 94 04/01/20 11:08 Temperature Heart Rate [ Monitoring electrodes] Respiratory Rate Blood Pressure 134/102 H [Left Brachial artery] O2 Saturation Oxygen O2 Source Room air I&O (Last 24 Hrs): Intake and Output Totals x24h 03/30/20 03/31/20 04/01/20 23:59 23:59 23:59 Intake Total 82327 4090 1456 Output Total 2455 3983 870 Balance 7995 107 586 General: Alert, Oriented x3 HEENT: EOMI, Mucous membr. moist/pink Neck: Supple, No JVD Neuro: Alert, Other (L leg weak 3/5) Cardiovascular: Regular rate, No murmurs Respiratory: No respiratory distress, Breath sounds nml Abdomen: Normal bowel sounds, Soft Genitourinary: Other (Henry cath removed yesterday) Extremities: No edema - Results Results: Laboratory Results WBC 16.0 x10^3/uL (4.8-10.8) H 04/01/20 05:10 RBC 4.04 10^6/uL (4.70-6.10) L 04/01/20 05:10 Hgb 12.2 g/dL (14.0-18.0) L 04/01/20 05:10 Hct 36.8 % (42.0-52.0) L 04/01/20 05:10 MCV 91.1 fL (80.0-94.0) 04/01/20 05:10 MCH 30.2 pg (27.0-31.0) 04/01/20 05:10 MCHC 33.2 g/dL (32.0-36.0) 04/01/20 05:10 RDW 13.0 % (12.0-15.0) 04/01/20 05:10 Plt Count 110 10^3/uL (130-450) L 04/01/20 05:10 MPV 11.1 fL (7.4-11.4) 04/01/20 05:10 Neut # (Auto) Not Reportable 04/01/20 05:10 Lymph # (Auto) Not Reportable 04/01/20 05:10 [place]le # (Auto) Not Reportable 04/01/20 05:10 Eos # (Auto) Not Reportable 04/01/20 05:10 Baso # (Auto) Not Reportable 04/01/20 05:10 Absolute Nucleated RBC Not Reportable 04/01/20 05:10 Total Counted 100 04/01/20 05:10 Band Neuts % (Manual) 3 % (0-10) 04/01/20 05:10 Abnorm Lymph % (Manual) 0 % 04/01/20 05:10 Metamyelocytes % 1 % (-0) H 03/30/20 04:25 Myelocytes % 1 % (-0) H 03/30/20 04:25 Nucleated RBC % Not Reportable 04/01/20 05:10 Neutrophils # (Manual) 13.8 10^3/uL (1.5-6.6) H 04/01/20 05:10 Lymphocytes # (Manual) 0.8 10^3/uL (1.5-3.5) L 04/01/20 05:10 Monocytes # (Manual) 1.1 10^3/uL (0.0-1.0) H 04/01/20 05:10 Eosinophils # (Manual) 0.3 10^3/uL (0-0.7) 04/01/20 05:10 Basophils # (Manual) 0.0 10^3/uL (0-0.1) 04/01/20 05:10 Differential Comment MANUAL DIFFERENTIAL 04/01/20 05:10 Manual Slide Review Indicated 03/31/20 04:40 WBC Morphology NORMAL APPEARANCE (NORMAL) 04/01/20 05:10 Platelet Estimate DECREASED (<130,000) (NORMAL) 04/01/20 05:10 Platelet Morphology NORMAL APPEARANCE (NORMAL) 04/01/20 05:10 RBC Morph Micro Appear NORMAL APPEARANCE (NORMAL) 04/01/20 05:10 Sodium 141 mmol/L (135-145) 04/01/20 05:10 Potassium 3.4 mmol/L (3.5-5.0) L 04/01/20 05:10 Chloride 115 mmol/L (101-111) H 04/01/20 05:10 Carbon Dioxide 21 mmol/L (21-32) 04/01/20 05:10 Anion Gap 5.0 (6-13) L 04/01/20 05:10 BUN 26 mg/dL (6-20) H 04/01/20 05:10 Creatinine 1.4 mg/dL (0.6-1.2) H 04/01/20 05:10 Estimated GFR (MDRD) 50 (>89) L 04/01/20 05:10 Glucose 99 mg/dL (70-100) 04/01/20 05:10 Lactic Acid 2.2 mmol/L (0.5-2.2) 03/30/20 10:59 Calcium 8.1 mg/dL (8.5-10.3) L 04/01/20 05:10 Phosphorus 2.5 mg/dL (2.5-4.6) 03/31/20 04:40 Magnesium 2.0 mg/dL (1.7-2.8) 03/31/20 04:40 Total Bilirubin 1.0 mg/dL (0.2-1.0) 03/29/20 22:02 AST 27 IU/L (10-42) 03/29/20 22:02 ALT 22 IU/L (10-60) 03/29/20 22:02 Alkaline Phosphatase 38 IU/L (42-121) L 03/29/20 22:02 Total Protein 5.6 g/dL (6.7-8.2) L 03/29/20 22:02 Albumin 2.8 g/dL (3.2-5.5) L 03/30/20 04:25 Globulin 2.7 g/dL (2.1-4.2) 03/29/20 22:02 Albumin/Globulin Ratio 1.1 (1.0-2.2) 03/29/20 22:02 Lipase 19 U/L (22-51) L 03/29/20 22:02 TSH 0.64 uIU/mL (0.34-5.60) 03/31/20 04:40 Urine Color DARK YELLOW 03/29/20 22:39 Urine Clarity CLOUDY (CLEAR) 03/29/20 22:39 Urine pH 5.0 PH (5.0-7.5) 03/29/20 22:39 Ur Specific [place] >=1.030 (1.002-1.030) H 03/29/20 22:39 Urine Protein 100 mg/dL (NEGATIVE) H 03/29/20 22:39 Urine Glucose (UA) NEGATIVE mg/dL (NEGATIVE) 03/29/20 22:39 Urine Ketones 15 mg/dL (NEGATIVE) H 03/29/20 22:39 Urine Occult Blood LARGE (NEGATIVE) H 03/29/20 22:39 Urine Nitrite NEGATIVE (NEGATIVE) 03/29/20 22:39 Urine Bilirubin NEGATIVE (NEGATIVE) 03/29/20 22:39 Urine Urobilinogen 0.2 (NORMAL) E.U./dL (NORMAL) 03/29/20 22:39 Ur Leukocyte Esterase MODERATE (NEGATIVE) H 03/29/20 22:39 Urine RBC TNTC /HPF (0-5) H 03/29/20 22:39 Urine WBC >25 /HPF (0-3) H 03/29/20 22:39 Ur Squamous Epith Cells FEW Squamous (<= Few) 03/29/20 22:39 Amorphous Sediment Few /LPF 03/29/20 22:39 Urine Bacteria Few /HPF (None Seen) 03/29/20 22:39 Urine Casts 0-2 Course Granular /LPF0-2 RBC Casts /LPF 03/29/20 22:39 Urine Casts 0-2 Course Granular /LPF0-2 RBC Casts /LPF 03/29/20 22:39 Urine Culture Comments INDICATED 03/29/20 22:39 Nasal Adenovirus (PCR) NOT DETECTED 03/29/20 22:55 Nasal B. parapertussis DNA (PCR) NOT DETECTED 03/29/20 22:55 Nasal Coronavir 229E PCR NOT DETECTED 03/29/20 22:55 Nasal Coronavir HKU1 PCR NOT DETECTED 03/29/20 22:55 Nasal Coronavir NL63 PCR NOT DETECTED 03/29/20 22:55 Nasal Coronavir OC43 PCR NOT DETECTED 03/29/20 22:55 Nasal Enterovir/Rhinovir PCR NOT DETECTED 03/29/20 22:55 Nasal Influenza B PCR NOT DETECTED 03/29/20 22:55 Nasal Influenza A PCR NOT DETECTED 03/29/20 22:55 Nasal Parainfluen 1 PCR NOT DETECTED 03/29/20 22:55 Nasal Parainfluen 2 PCR NOT DETECTED 03/29/20 22:55 Nasal Parainfluen 3 PCR NOT DETECTED 03/29/20 22:55 Nasal Parainfluen 4 PCR NOT DETECTED 03/29/20 22:55 Nasal RSV (PCR) NOT DETECTED 03/29/20 22:55 Nasal Screen MRSA (PCR) NEGATIVE (NEGATIVE) 03/30/20 00:50 Nasal B.pertussis DNA PCR NOT DETECTED 03/29/20 22:55 Nasal C.pneumoniae (PCR) NOT DETECTED 03/29/20 22:55 Isreal Human Metapneumo PCR NOT DETECTED 03/29/20 22:55 Nasal M.pneumoniae (PCR) NOT DETECTED 03/29/20 22:55 Nasal SARS-CoV-2 (PCR) NOT DETECTED 03/29/20 22:55 Sepsis Event Note (H) - Evaluation Current Stage of Sepsis: Sepsis Possible source of Sepsis: positive: Genitourinary - Sepsis Criteria Sepsis Criteria: Recorded Temperature greater than 38.3C or Less than 36C, Recorded Heart Rate greater than 90 bpm, Recorded Respiratory Rate greater than 20, WBC count greater than 12,000 or less than 4000, SBP less than 90 mmHg, Metabolic: lactate > 2 mmol/L
[2020-04-01] MEDS: DOXAZOSIN 4 MG TABLET PO SCH (21:33)
[2020-04-01] MEDS: ATORVASTATIN 40 MG TABLET PO SCH (21:33)
[2020-04-02 05:38] LABS: BASOPHILS # (AUTO) 0.1 10^3/uL (0.0-0.1); BASOPHILS % (AUTO) 0.7 %; EOSINOPHILS # (AUTO) 0.4 10^3/uL (0.0-0.7); EOSINOPHILS % (AUTO) 3.6 %; HGB - HEMOGLOBIN 12.8 g/dL (14.0-18.0); LYMPHOCYTES # (AUTO) 1.1 10^3/uL (1.5-3.5); MEAN CORPUSCULAR HEMOGLOBIN 30.9 pg (27.0-31.0); MEAN CORPUSCULAR VOLUME 90.8 fL (80.0-94.0); MEAN PLATELET VOLUME 10.9 fL (7.4-11.4); MONOCYTES # (AUTO) 0.8 10^3/uL (0.0-1.0); MONOCYTES % (AUTO) 6.9 %; NEUTROPHILS # (AUTO) 8.5 10^3/uL (1.5-6.6); NEUTROPHILS % (AUTO) 78.5 %; PLT - PLATELET COUNT 120 10^3/uL (130-450); RED BLOOD COUNT 4.14 10^6/uL (4.70-6.10); WHITE BLOOD COUNT 10.9 x10^3/uL (4.8-10.8)
[2020-04-02 05:46] LABS: CALCIUM 8.6 mg/dL (8.5-10.3); CREATININE 1.2 mg/dL (0.6-1.2)
[2020-04-02] MEDS: BACLOFEN 10 MG TABLET PO SCH (06:24)
[2020-04-02] MEDS ORDERED: LEVOTHYROXINE 100 MCG TABLET PO SCH (07:00)
[2020-04-02] MEDS ORDERED: LEVOTHYROXINE 25 MCG TABLET PO SCH (07:00)
--- NOTE | 2020-04-02 08:37 | Discharge Plan ---
Discharge Plan Problem Reviewed?: Yes Disposition: Home, Self Care Condition: Fair Prescriptions: Lactobacillus Acidophilus [Acidophilus Probiotic] 1 each PO BID #30 capsule Doxazosin [Cardura] 8 mg PO DAILY #30 tablet levoFLOXacin [Levaquin] 750 mg PO DAILY #17 tablet Diet: Low Sodium Activity Restrictions: Activity as Tolerated Shower Restrictions: No Health Concerns: You were admitted in critical condition due to septic shock. You had an infection starting in the urinary bladder and it had spread into your bloodstream. The bacteria identified was Proteus mirabilis. You received several days of IV antibiotics. You are being sent home to take several more WEEKS of oral antibiotics. An antibiotic can give you diarrhea, therefore a Probiotic is also being prescribed. Your medication for prostate hypertrophy, Doxazosin, has been reordered for you, and you should use it. The new medications were all electronically sent to your [facility] pharmacy in [facility]. Resume all your usual medications, but DO NOT TAKE the Chlorthalidone, which is a water pill and it can dehydrate you and stress your kidneys. Please see your Primary Care Provider in 1 to 2 weeks for hospital follow-up, and to assure that the infection has cleared. You may need referral to a Urologist since your prostate enlargement added to this entire problem. Plan of Treatment: As above. Care Goals: Improvement in symptoms and stabilization are the goals. Assessment: The patient understands and is agreeable with the plan. Additional Instructions or Follow Up instructions: If you have new or worsening symptoms, call your PCP for advice or come to the ER. No Smoking: If you smoke, Please STOP! Call for help. Follow-up with: Viji Knight MD [Primary Care Provider] -
[2020-04-02] MEDS ORDERED: MULTIVITAMIN TABLET PO SCH (09:00)
[2020-04-02] MEDS ORDERED: POTASSIUM CHLORIDE 10 MEQ CAPSULE PO SCH (09:00)
[2020-04-02] MEDS ORDERED: levoFLOXacin 250 MG TABLET PO SCH (09:00)
[2020-04-02] MEDS: SACCHAROMYCES BOULARDII 250 MG CAPSULE PO SCH (09:08)
[2020-04-02] MEDS: ASPIRIN EC 81 MG TABLET PO SCH (09:08)
[2020-04-02] MEDS: SENNA 8.6 MG TABLET PO SCH (09:09)
[2020-04-02] MEDS: DOCUSATE SODIUM 100 MG CAPSULE PO SCH (09:10)
[2020-04-02] MEDS: ENOXAPARIN 30 MG/0.3 ML SYRINGE SUBQ SCH (09:10)
[2020-04-02] MEDS: SODIUM CHLORIDE FLUSH 0.9% 10 ML SYRINGE IVP SCH (09:10)
--- NOTE | 2020-04-02 09:22 | DISCHARGE SUMMARY ---
Discharge Summary Admit Date: 03/30/20 Discharge Date: 04/02/20 Discharging Provider: Dr Dorothy Méndez Primary Care Provider: Dr Viji Knight Code Status: Attempt Resuscitation Condition at Discharge: Fair Discharge Disposition: 01 Home, Self Care - [facility] History of Present Illness: From the admission H&P of Dr. Mary Magana: Patient is a 69-year-old male with medical history significant for CVA, he has left-leg weakness after neck surgery, hyperlipidemia, hypertension, hypothyroidism, urinary retention, BPH and chronic issues with constipation who presented to the ED with hypotension. He lives alone but has a caregiver who comes to his house daily. Over the past 2 to 3 days his blood pressure has been low. He has blood pressure machine at home and takes his pressures daily. He reports that 3 days ago it was in the 90s but it has been persistently low in the 70's today. As a result he called EMS who verified this and decided to bring him to the emergency room. En route he was given 1 L of lactated Ringer bolus. In the ED he was found to have a SBP in the 80's, WBC of 25 and lactic acid of 3.3. UA indicated that he had a UTI. CT imaging showed no kidney stranding, stones were seen but were non-obstructive. At bedside his mentation is intact. He denies chest pain, dyspnea, abdominal pain, nausea or vomiting. He reports chills and feeling clammy. He will be admitted to the ICU for treating septic shock and the urine appears to be the source. - HOSPITAL COURSE Hospital Course: (1) Septic shock Patient received aggressive resuscitation with crystalloids which improved his blood pressure and mentation. He was started on empiric IV antibiotics for treating the infection. His septic vital signs and Lactic Acid level improved by the next day and the white blood count continued to improve every day. (2) Bacteremia His blood culture turned pos and grew Proteus mirabilis. He received 4 days of IV antibiotics and had improvement in his white blood count, no more fevers. We awaited the second set of blood cultures to assure they were negative with no growth after starting antibiotics, and they were. He was transitioned to take oral antibiotics, based on this Proteus' sensitivities and he was discharged home to take Levofloxacin 750 mg p.o. daily for 17 more days (a 21-day total course for good prostate penetration), plus a Probiotic for that course of time. (3) UTI (urinary tract infection) Proteus mirabilus also grew in the urine culture. The treatment was as in #2. (4) KAYLAH (acute kidney injury) This was multi-factorial: from septic shock and hypoperfusion (ATN) and partly from suspected obstruction due to his prostate. A Henry was placed due to urinary obstruction and for measuring accurate I's and O's and was removed after 2 days. He received aggressive iv fluids. This patient's creatinine at presentation was 3 and improve daily>> 2.2>> 1.4>> was 1.2 on the day of discharge. (5) BPH (benign prostatic hyperplasia) On the day of admission, he described difficulty urinating, and a Henry was placed. A Tamsulosin dose was resumed before removing the Henry. The patient's confirmed medication list no longer had Tamsulosin on the list but he was discharged with a new prescription for Tamsulosin 0.8 mg daily. Recommendation to re-see his Urologist, was given at discharge (6) Renal calculi As per CT report, but they are non-obstructing (7) Left leg weakness The patient reported that he had a stroke but had complete recovery from it. The reason he has left leg weakness is because of spinal cord damage that occurred when he had remote neck surgery on his thyroid gland. Physical Therapy saw the patient and offered home health PT and OT which the patient declined. The patient has a very good arrangement with home caregivers and they do some physical therapy with him, he stated. (8) Hyperlipidemia We continued with his p.o. statin (9) Hypothyroidism TSH was at the lower end of acceptable at 0.61. We continued his usual Synthroid replacement dose. (10) Hx of essential hypertension Patient was hypotensive at admission due to sepsis. We held metoprolol, doxazosin and chlorthalidone. Doxazosin was resumed for BPH, and his Metoprolol was okayed to resume after discharge. He was advised not to use chlorthalidone due to being recently dehydrated and with KAYLAH. - ALLERGIES Allergies/Adverse Reactions: Allergies Allergy/AdvReac Type Severity Reaction Status Date / Time No Known Drug Allergies Allergy Verified 03/29/20 21:48 - MEDICATIONS Home Medications: Ambulatory Orders Medication Instructions Recorded Confirmed Aspirin [Aspir 81] 81 mg PO DAILY 06/08/13 03/29/20 Atorvastatin [Lipitor] 40 mg PO HS 06/08/13 03/29/20 Baclofen [Lioresal] 10 mg PO TID 06/08/13 03/29/20 Docusate Sodium 100Mg Capsule 100 mg PO BID 06/08/13 03/29/20 [Colace 100Mg Capsule] Metoprolol Tartrate [Lopressor] 25 mg PO BID 06/08/13 03/29/20 Potassium Chloride 10 meq PO BID 06/08/13 03/30/20 Acetaminophen [Tylenol] 1 tab PO PRN PRN 03/30/20 03/30/20 Levothyroxine Sodium 200 mcg PO DAILY 03/30/20 03/30/20 [Levothyroxine] Levothyroxine [Synthroid] 25 mcg PO .SAT AND SUN 03/30/20 03/30/20 Multivit-Minerals/Folic Acid 1 tab PO DAILY 03/30/20 03/30/20 [Adult One Daily Multivit Tab] Doxazosin [Cardura] 8 mg PO DAILY #30 tablet 04/02/20 Lactobacillus Acidophilus 1 each PO BID #30 capsule 04/02/20 [Acidophilus Probiotic] levoFLOXacin [Levaquin] 750 mg PO DAILY #17 tablet 04/02/20 - PHYSICAL EXAM AT DISCHARGE General Appearance: positive: No acute distress, Alert Eyes Bilateral: positive: Normal inspection, EOMI ENT: positive: ENT inspection nml, No signs of dehydration Neck: positive: Nml inspection, No JVD Respiratory: positive: No respiratory distress, Breath sounds nml Cardiovascular: positive: Regular rate & rhythm, No murmur Abdomen: positive: Nml bowel sounds, No distention Skin: positive: Warm, Dry Extremities: positive: No pedal edema Neurologic/Psychiatric: positive: Oriented x3, Weakness (Left leg weakness) - LABS Result Diagrams: 04/02/20 05:15 04/02/20 05:15 - DIAGNOSTIC IMAGING Diagnostic Imaging Results: Final report reviewed - SEPSIS Current Stage of Sepsis: Sepsis Possible source of Sepsis: Genitourinary Sepsis Criteria: Recorded Temperature greater than 38.3C or Less than 36C, Recorded Heart Rate greater than 90 bpm, Recorded Respiratory Rate greater than 20, WBC count greater than 12,000 or less than 4000, SBP less than 90 mmHg, Metabolic: lactate > 2 mmol/L - FOLLOW UP Follow Up: See PCP in 1 to 2 weeks for hospital follow-up. Recommend re-seeing Urologist as well. - TIME SPENT Time Spent in Discharge (Minutes): 40
[2020-04-02 13:03] VITALS: BP 153/83
== END 2020-04-02 13:15 | disposition home or self-care (01) | DRG 871 ==
LOC: ED 21:45 → ICU 03-30 00:05 → MS2 03-31 11:47
PROVIDERS: ADMIT Internal Medicine; ATTEND Internal Medicine
DX: A41.89 Other specified sepsis (principal); R65.21 Severe sepsis with septic shock; N17.0 Acute kidney failure with tubular necrosis; N39.0 Urinary tract infection, site not specified; N13.8 Other obstructive and reflux uropathy; G97.81 Other intraoperative complications of nervous system; E87.2 Acidosis; N40.1 Benign prostatic hyperplasia with lower urinary tract symptoms; R33.9 Retention of urine, unspecified; I95.9 Hypotension, unspecified; N20.0 Calculus of kidney; Y65.8 Other specified misadventures during surgical and medical care; E78.5 Hyperlipidemia, unspecified; I10 Essential (primary) hypertension; E86.0 Dehydration; E89.0 Postprocedural hypothyroidism; K59.09 Other constipation; Z74.09 Other reduced mobility; R53.1 Weakness; Z87.891 Personal history of nicotine dependence; Z79.82 Long term (current) use of aspirin; Z79.899 Other long term (current) drug therapy
CPT/HCPCS: 36415; 71045; 74176; 80048; 80053; 81001; 82040; 83605; 83690; 83735; 84100; 84443; 85025; 87040; 87077; 87086; 87150; 87181; 87631; 93005; 96365; 96368; 97161; 97530; 99284; 99285; A9270; J1650; J3370; J7120; 0202U

== ENCOUNTER 2023-06-27 13:33 | Outpatient (CLI) | payer MEDICARE | END 2023-06-27 13:34 | disposition critical access hospital (66) | LOC: EMS 13:33 | DX: R33.9 Retention of urine, unspecified (principal); K59.00 Constipation, unspecified; R10.32 Left lower quadrant pain | CPT/HCPCS: A0425; A0429 ==

== ENCOUNTER 2023-06-27 14:06 | Emergency (ER) | payer MEDICARE ==
[2023-06-27 14:36] LABS: BASOPHILS # (AUTO) 0.1 10^3/uL (0.0-0.1); BASOPHILS % (AUTO) 0.4 %; EOSINOPHILS # (AUTO) 0.1 10^3/uL (0.0-0.7); EOSINOPHILS % (AUTO) 0.5 %; HCT - HEMATOCRIT 46.1 % (42.0-52.0); HGB - HEMOGLOBIN 14.9 g/dL (14.0-18.0); LYMPHOCYTES # (AUTO) 0.9 10^3/uL (1.5-3.5); LYMPHOCYTES % (AUTO) 6.5 %; MEAN CORPUSCULAR HEMOGLOBIN 29.7 pg (27.0-31.0); MEAN CORPUSCULAR HGB CONC 32.3 g/dL (32.0-36.0); MEAN CORPUSCULAR VOLUME 91.8 fL (80.0-94.0); MEAN PLATELET VOLUME 9.9 fL (7.4-11.4); MONOCYTES # (AUTO) 1.2 10^3/uL (0.0-1.0); MONOCYTES % (AUTO) 9.4 %; NEUTROPHILS # (AUTO) 10.9 10^3/uL (1.5-6.6); NEUTROPHILS % (AUTO) 82.9 %; PLT - PLATELET COUNT 206 10^3/uL (130-450); RED BLOOD COUNT 5.02 10^6/uL (4.70-6.10); RED CELL DISTRIBUTION WIDTH 12.6 % (12.0-15.0); WHITE BLOOD COUNT 13.2 x10^3/uL (4.8-10.8)
[2023-06-27 14:52] LABS: ALBUMIN 3.6 g/dL (3.2-5.5); ALBUMIN/GLOBULIN RATIO 1.3 (1.0-2.2); ALKALINE PHOSPHATASE 63 IU/L (42-121); ALT ALANINE AMINOTRANSFERASE 10 IU/L (10-60); AST ASPARTATE AMINOTRANSFERASE 17 IU/L (10-42); BUN - BLOOD UREA NITROGEN 43 mg/dL (6-20); CALCIUM 9.4 mg/dL (8.5-10.3); CARBON DIOXIDE - CO2 26 mmol/L (21-32); CHLORIDE 104 mmol/L (101-111); GFR - MDRD 21 (>89); GLUCOSE 129 mg/dL (74-104); POTASSIUM 4.7 mmol/L (3.5-4.5); SODIUM 137 mmol/L (135-145); TOTAL PROTEIN 6.4 g/dL (6.4-8.9)
[2023-06-27 14:55] LABS: LIPASE < 10 U/L (11-82)
[2023-06-27] MEDS: LIDOCAINE 2% URO-JET 5 ML SYRINGE UR STA (14:57)
[2023-06-27 15:41] LABS: GLUCOSE, URINE (UA) 100 mg/dL (NEGATIVE); KETONES,URINE (UA) NEGATIVE (NEGATIVE); LEUKOCYTE ESTERASE, URINE TRACE (NEGATIVE); NITRITE,URINE POSITIVE (NEGATIVE); OCCULT BLOOD,URINE MODERATE (NEGATIVE); PH,URINE 5.5 PH (5.0-7.5); PROTEIN,URINE 100 mg/dL (NEGATIVE)
[2023-06-27 15:52] LABS: BILIRUBIN,URINE COLOR INTERFERENCE (NEGATIVE); CLARITY,URINE HAZY (CLEAR)
[2023-06-27 15:53] LABS: BACTERIA,URINE Rare /HPF (None Seen); MUCUS,URINE Few Strands; RBC,URINE TNTC /HPF (0-5); SQUAMOUS EPITHELIAL CELL,UR NONE SEEN (<= Few)
--- NOTE | 2023-06-27 16:20 | CT Report ---
PROCEDURE: Abdomen/Pelvis WO INDICATIONS: urinary obstruction. elev Creat; take after biggs. TECHNIQUE: A CT scan of the abdomen and pelvis was performed without the use of intravenous contrast. Images we re recorded and evaluated at appropriate window settings. Reformats: coronal and sagittal. For radiat ion dose reduction, the following was used: automated exposure control, adjustment of mA and/or kV ac cording to patient size. COMPARISON: None. FINDINGS: Image quality: Diagnostic. Lower chest: Unremarkable. Liver: No contour-deforming mass. Hepatic cyst. Gallbladder and biliary tree: Cholelithiasis without wall thickening. No biliary dilation. Spleen: No splenomegaly. Pancreas: No pancreatic ductal dilation. Adrenals: No adrenal nodule. Kidneys and ureters: Punctate nonobstructing right-sided nephrolithiasis. Multiple large left-sided r enal stones, largest measuring 2.8 cm in the renal pelvis (853 Hounsfield unit). Layering stone withi n the proximal left ureter measuring 3 mm (series 3, image 98). Bilateral ureterectasis without of ob structing site seen. Stomach, bowel and peritoneum: No bowel distension. No pathologic free fluid. Large rectal and coloni c stool load. Lymph nodes: No central or retroperitoneal adenopathy. Vessels: No infrarenal aortic aneurysm. PELVIS Reproductive organs: Prostatomegaly. Bladder: Decompressed around a Biggs catheter. Pelvic lymph nodes: No pelvic adenopathy by size criteria. Bones: No aggressive osseous abnormality. Other: No significant ventral or inguinal hernia. IMPRESSION: Nonobstructing stone within the proximal left ureter measuring 3 mm. Large burden of nonobstructing left-sided nephrolithiasis, largest stone measuring 2.8 cm in the glenda l pelvis. No obstructing nephrolithiasis. Bladder decompressed around a Biggs catheter. Cholelithiasis without evidence of acute cholecystitis. Large rectal and colonic stool load. Reviewed by: Erwin Montejo MD on 06/27/2023 4:19 PM PDT Approved by: Erwin Montejo MD on 06/27/2023 4:19 PM PDT Station ID: [id number]
--- NOTE | 2023-06-27 16:24 | ED Physician Documentation ---
PD HPI ABD PAIN - Stated complaint Stated Complaint: - Chief complaint Chief Complaint: Abd Pain - History obtained from History obtained from: Patient - History of Present Illness Timing - onset: How many weeks ago (1) Timing - duration: Weeks (1) Timing - details: Gradual onset, Still present Quality: Cramping, Aching, Pain Location: Suprapubic Radiation: Lower back. No: Chest Improved by: No: Eating Worsened by: No: Eating Associated symptoms: Nausea, Constipation, Dysuria, Loss of appetite. No: Fever, Vomiting, Hematemesis, Diarrhea, Near syncope / syncope Similar symptoms before: Diagnosis (had UTI with sepsis and renal insufficiency 2019. 3 days in hospital here.) Review of Systems Constitutional: denies: Fever, Chills, Myalgias Nose: denies: Rhinorrhea / runny nose, Congestion Throat: denies: Sore throat Respiratory: denies: Cough GI: reports: Abdominal Pain, Constipation. denies: Nausea, Vomiting, Diarrhea : reports: Dysuria, Hesitancy PD PAST MEDICAL HISTORY - Past Medical History Cardiovascular: Hypertension, High cholesterol Respiratory: None Neuro: CVA Endocrine/Autoimmune: None, HyPOthyroidism : Benign prostate hypertrophy Psych: None Musculoskeletal: Chronic back pain - Past Surgical History Past Surgical History: Yes - Present Medications Home Medications: Ambulatory Orders Medication Instructions Recorded Confirmed Aspirin [Aspir 81] 81 mg PO DAILY 06/08/13 03/29/20 Atorvastatin [Lipitor] 40 mg PO HS 06/08/13 03/29/20 Baclofen [Lioresal] 10 mg PO TID 06/08/13 03/29/20 Docusate Sodium 100Mg Capsule 100 mg PO BID 06/08/13 03/29/20 [Colace 100Mg Capsule] Metoprolol Tartrate [Lopressor] 25 mg PO BID 06/08/13 03/29/20 Potassium Chloride 10 meq PO BID 06/08/13 03/30/20 Acetaminophen [Tylenol] 1 tab PO PRN PRN 03/30/20 03/30/20 Levothyroxine Sodium 200 mcg PO DAILY 03/30/20 03/30/20 Levothyroxine [Synthroid] 25 mcg PO .SAT AND SUN 03/30/20 03/30/20 Multivit-Minerals/Folic Acid 1 tab PO DAILY 03/30/20 03/30/20 [Adult One Daily Multivit Tab] Doxazosin [Cardura] 8 mg PO DAILY #30 tablet 04/02/20 Lactobacillus Acidophilus 1 each PO BID #30 capsule 04/02/20 [Acidophilus Probiotic] levoFLOXacin [Levaquin] 750 mg PO DAILY #17 tablet 04/02/20 Docusate Sodium 100Mg Capsule 100 mg PO DAILY #20 cap 06/27/23 [Colace 100Mg Capsule] Lactulose 10 gm PO BID PRN #300 ml 06/27/23 cephALEXin [Keflex] 500 mg PO TID #20 cap 06/27/23 - Allergies Allergies/Adverse Reactions: Allergies Allergy/AdvReac Type Severity Reaction Status Date / Time No Known Drug Allergies Allergy Verified 06/27/23 14:52 - Social History Does the pt smoke?: Yes Smoking Status: Current every day smoker Does the pt drink ETOH?: No Does the pt have substance abuse?: No - Immunizations Immunizations are current?: Yes - POLST Patient has POLST: No POLST Status: Full Code PD ED PE NORMAL - Vitals Vital signs reviewed: Yes - General General: Alert and oriented X 3, Well developed/nourished - Neck Neck: Supple, no meningeal sign, No adenopathy - Cardiac Cardiac: RRR, No murmur - Respiratory Respiratory: No respiratory distress, Clear bilaterally - Abdomen Abdomen: Normal bowel sounds, Soft, No organomegaly, Other (fullness rounded in bladder area with tenderness. Upper abd not tender. No percussion nor rebound tenderness. ) - Rectal Rectal: Other (digital exam with very firm, josemanuel-like ball of stool about softball size. Broken up with tip of finger and some hooked out with finger, about a cup worth of stool. Rest is in smaller pieces invault. ) - Back Back: No CVA TTP - Derm Derm: Normal color, Warm and dry Results - Vitals Vitals: Oxygen O2 Source Room air - Labs Labs: Microbiology 06/27/23 15:22 Urine Culture - Preliminary Urine,Clean Catch CULTURE IN PROGRESS. RESULTS TO FOLLOW. Laboratory Tests 06/27/23 06/27/23 06/27/23 14:29 14:29 15:22 WBC 13.2 H RBC 5.02 Hgb 14.9 Hct 46.1 MCV 91.8 MCH 29.7 MCHC 32.3 RDW 12.6 Plt Count 206 MPV 9.9 Neut # (Auto) 10.9 H Lymph # (Auto) 0.9 L [place] # (Auto) 1.2 H Eos # (Auto) 0.1 Baso # (Auto) 0.1 Absolute Nucleated RBC 0.00 Nucleated RBC % 0.0 Sodium 137 Potassium 4.7 H Chloride 104 Carbon Dioxide 26 Anion Gap 7.0 BUN 43 H Creatinine 3.0 H Estimated GFR (MDRD) 21 L Glucose 129 H Calcium 9.4 Magnesium 2.0 Total Bilirubin 1.0 AST 17 ALT 10 Alkaline Phosphatase 63 Total Protein 6.4 Albumin 3.6 Globulin 2.8 Albumin/Globulin Ratio 1.3 Lipase < 10 L Urine Color ORANGE Urine Clarity HAZY Urine pH 5.5 Ur Specific [place] 1.020 Urine Protein 100 H Urine Glucose (UA) 100 H Urine Ketones NEGATIVE Urine Occult Blood MODERATE H Urine Nitrite POSITIVE H Urine Bilirubin COLOR INTERFERENCE Urine Urobilinogen Ur Leukocyte Esterase TRACE H Urine RBC TNTC H Urine WBC 4-5 Ur Squamous Epith Cells NONE SEEN Urine Bacteria Rare Urine Mucus Few Strands Ur Microscopic Review INDICATED Urine Culture Comments INDICATED PD Medical Decision Making - ED course Complexity details: reviewed results (wbc 13K. Creatinine 3.0 with most recent being 1.8. Had episode Mar 2020 of UTI with sepsis and creatinine was at 3.3, with improvement over just 2 days with hydration. Pt does not seem septic. Does have UTI. Creatinine is not over twice baseline. ), re-evaluated patient (he appears more comfortable, though has had only small amount of stool out as yet. Some removed digitally (about a cup amount), and given enema. Should be softened and ready to pass with laxatives. ), considered differential (Dysuria with now no urine out. Had not had BM for a week either. Consider UTI, with retention. Henry placed by nursing and lot of urine out (1400 ml). Rectal exam with large impaction. CT did not show any obstructive stones, but large 2.8 cm in renal pelvis, and layering 3 mm stone left ureter. ), d/w patient Departure - Departure Disposition: 01 Home, Self Care Clinical Impression: UTI (urinary tract infection), Acute urinary retention, Fecal impaction in rectum, Renal calculus or stone Condition: Stable Record reviewed to determine appropriate education?: Yes Instructions: ED Catheter Care Henry, ED UTI Cystitis Male Follow-Up: Viji Knight MD [Primary Care Provider] - Ilya Brunson MD [Provider Admit Priv/Credential] - Prescriptions: Docusate Sodium 100Mg Capsule [Colace 100Mg Capsule] 100 mg PO DAILY #20 cap cephALEXin [Keflex] 500 mg PO TID #20 cap Lactulose 10 gm PO BID PRN #300 ml PRN Reason: Constipation Comments: You do have a bladder infection on your urine test. Will treat this with cephalexin antibiotic as directed for the next week. You were having a lot of urine held back from the outlet of the bladder. This is likely combination of underlying enlarged prostate plus the effect of the bladder infection combined with pressure on the bladder outlet from a large stool impaction at the rectum. You had approximately 1100 mL of urine out. That amount of urine will have over stretched the bladder enough that I would expect the muscle tone to not be able to really avoid/empty appropriately until he has a chance to regain contracted muscle tone. As such we typically would leave the catheter in to allow regular drainage until conditions improve. Call the urology office on Friday for follow-up appointment this following week. Commonly would keep the catheter in for around a week or so. Regarding the rectal stool impaction, some of it was removed digitally (by finger) and the rest was broken up into smaller pieces. We then loosened it more with the enema fluid. Presumably this should allow better passage of the stool out through the rest of the day. I would suggest adding a stool softener daily of docusate for the next 2 to 3 weeks. Additionally in the short-term use the lactulose every 2 or 3 hours this evening and tomorrow until you get better stool output. Stop at that point so you do not get over softened etc. I sent your prescriptions to your preferred pharmacy. Tylenol every 4-6 hours if needed for pains. Your CT scan also showed a large stone in the left kidney and a small [address] ureter. They are not obstructing the flow of urine but still likely will need to be addressed. This would be by the urologist as well. Forms: PCP List Discharge Date/Time: 06/27/23 18:59
[2023-06-27] MEDS: DOCUSATE SODIUM 100 MG CAPSULE PO STA (16:32)
[2023-06-27] MEDS: ACETAMINOPHEN 500 MG TABLET PO STA (16:32)
[2023-06-27] MEDS: MINERAL OIL ENEMA 133 ML BOTTLE RC STA (16:32)
[2023-06-27] MEDS: cephALEXin 250 MG CAPSULE PO STA (16:33)
[2023-06-27 18:05] VITALS: O2SAT 94
[2023-06-27] MEDS: LACTULOSE 10 GM /15 ML UDC PO STA (18:11)
[2023-06-27 18:40] VITALS: BP 134/64
== END 2023-06-27 18:59 | disposition home or self-care (01) ==
LOC: EDUNIT# → ED 14:06
DX: N39.0 Urinary tract infection, site not specified (principal); R33.9 Retention of urine, unspecified; K56.41 Fecal impaction; N20.0 Calculus of kidney; I10 Essential (primary) hypertension; F17.200 Nicotine dependence, unspecified, uncomplicated
CPT/HCPCS: 36415; 51702; 74176; 80053; 81001; 83690; 83735; 85025; 87086; 99284; A9270; 81003

== ENCOUNTER 2023-08-30 13:55 | Outpatient (CLI) | payer MEDICARE | END 2023-08-30 13:56 | disposition critical access hospital (66) | LOC: EMS 13:55 | DX: R33.9 Retention of urine, unspecified (principal); R52 Pain, unspecified; I69.354 Hemiplegia and hemiparesis following cerebral infarction affecting left non-dominant side | CPT/HCPCS: A0425; A0429 ==

== ENCOUNTER 2023-08-30 14:31 | Emergency (ER) | payer MEDICARE ==
--- NOTE | 2023-08-30 14:40 | ED Physician Documentation ---
PD HPI MALE - Stated complaint Stated Complaint: CATH ISSUE - History obtained from History obtained from: Patient - History of Present Illness Timing - onset: Last night Timing - duration: Hours (12) Timing - details: Abrupt onset, Still present Associated symptoms: Biggs problem (no drainage from catheter since overnight nd feeling of distended bladder today.) PD HPI MALE CONTRIB FACTORS: Indwelling catheter (last changed about 3 weeks ago. Hematuria is common.) Review of Systems Constitutional: denies: Fever, Chills GI: denies: Nausea, Vomiting : reports: Hematuria PD PAST MEDICAL HISTORY - Past Medical History Cardiovascular: Hypertension, High cholesterol Respiratory: None Neuro: CVA Endocrine/Autoimmune: None, HyPOthyroidism : Benign prostate hypertrophy Psych: None Musculoskeletal: Chronic back pain - Past Surgical History Past Surgical History: Yes - Present Medications Home Medications: Ambulatory Orders Medication Instructions Recorded Confirmed Aspirin [Aspir 81] 81 mg PO DAILY 06/08/13 03/29/20 Atorvastatin [Lipitor] 40 mg PO HS 06/08/13 03/29/20 Baclofen [Lioresal] 10 mg PO TID 06/08/13 03/29/20 Docusate Sodium 100Mg Capsule 100 mg PO BID 06/08/13 03/29/20 [Colace 100Mg Capsule] Metoprolol Tartrate [Lopressor] 25 mg PO BID 06/08/13 03/29/20 Potassium Chloride 10 meq PO BID 06/08/13 03/30/20 Acetaminophen [Tylenol] 1 tab PO PRN PRN 03/30/20 03/30/20 Levothyroxine Sodium 200 mcg PO DAILY 03/30/20 03/30/20 Levothyroxine [Synthroid] 25 mcg PO .SAT AND SUN 03/30/20 03/30/20 Multivit-Minerals/Folic Acid 1 tab PO DAILY 03/30/20 03/30/20 [Adult One Daily Multivit Tab] Doxazosin [Cardura] 8 mg PO DAILY #30 tablet 04/02/20 Lactobacillus Acidophilus 1 each PO BID #30 capsule 04/02/20 [Acidophilus Probiotic] levoFLOXacin [Levaquin] 750 mg PO DAILY #17 tablet 04/02/20 Docusate Sodium 100Mg Capsule 100 mg PO DAILY #20 cap 06/27/23 [Colace 100Mg Capsule] Lactulose 10 gm PO BID PRN #300 ml 06/27/23 cephALEXin [Keflex] 500 mg PO TID #20 cap 06/27/23 - Allergies Allergies/Adverse Reactions: Allergies Allergy/AdvReac Type Severity Reaction Status Date / Time No Known Drug Allergies Allergy Verified 08/30/23 14:44 - Social History Does the pt smoke?: Yes Smoking Status: Current every day smoker Does the pt drink ETOH?: No Does the pt have substance abuse?: No - Immunizations Immunizations are current?: Yes - POLST Patient has POLST: No POLST Status: Full Code PD ED PE NORMAL - Vitals Vital signs reviewed: Yes - General General: Alert and oriented X 3, Well developed/nourished, Other (appears uncomfortable with very full/distended bladder. Biggs in place with normal appearance at meatus of penis. Urine that is in bad has hematuria appearance. ) - Abdomen Abdomen: Soft, No organomegaly, Other (bladder full and tense, tender. ) Results - Vitals Vitals: Vital Signs - 24 hr 08/30/23 08/30/23 14:39 16:27 Temperature 36.9 C Heart Rate 87 86 Respiratory 20 20 Rate Blood Pressure 96/74 98/60 O2 Saturation 98 96 Oxygen O2 Source Room air - Labs Labs: Laboratory Tests 08/30/23 15:09 Urine Color RED/BLOODY Urine Clarity CLOUDY Urine pH 8.5 H Ur Specific [place] 1.020 Urine Protein >=300 H Urine Glucose (UA) NEGATIVE Urine Ketones TRACE Urine Occult Blood LARGE H Urine Nitrite NEGATIVE Urine Bilirubin SMALL H Urine Urobilinogen 0.2 (NORMAL) Ur Leukocyte Esterase LARGE H Urine RBC TNTC H Urine WBC >25 H Ur Squamous Epith Cells NONE SEEN Urine Bacteria Many H Ur Microscopic Review INDICATED Urine Culture Comments INDICATED PD Medical Decision Making - ED course Complexity details: re-evaluated patient (feeling much better with bladder empty. ), considered differential (chronic biggs not draining started last night. Commonly hematuria. Nursing tried irrigation without improvement. WIll replace biggs. This was done and urine out with red coloring. Pt states the hematuria is chronic/recurrent. ), d/w patient Departure - Departure Disposition: 01 Home, Self Care Clinical Impression: Biggs catheter problem Condition: Stable Record reviewed to determine appropriate education?: Yes Follow-Up: Viji Knight MD [Primary Care Provider] - Comments: Continue with your normal catheter care. Will we are culturing your urine. Will see if there is any growth in a couple of days at this point we typically would not start antibiotics or such. Forms: PCP List Discharge Date/Time: 08/30/23 16:39
[2023-08-30] MEDS ORDERED: LIDOCAINE JELLY 2% 6 ML JEL.PF.APP ONE (14:52)
[2023-08-30] MEDS: LIDOCAINE 2% URO-JET 5 ML SYRINGE UR STA (15:23)
[2023-08-30 16:09] LABS: BILIRUBIN,URINE SMALL (NEGATIVE); GLUCOSE, URINE (UA) NEGATIVE (NEGATIVE); KETONES,URINE (UA) TRACE mg/dL (NEGATIVE); LEUKOCYTE ESTERASE, URINE LARGE (NEGATIVE); NITRITE,URINE NEGATIVE (NEGATIVE); OCCULT BLOOD,URINE LARGE (NEGATIVE); PH,URINE 8.5 PH (5.0-7.5); PROTEIN,URINE >=300 mg/dL (NEGATIVE); UROBILINOGEN,URINE 0.2 (NORMAL) E.U./dL (NORMAL)
[2023-08-30 16:11] LABS: CLARITY,URINE CLOUDY (CLEAR)
[2023-08-30 16:18] LABS: BACTERIA,URINE Many /HPF (None Seen); RBC,URINE TNTC /HPF (0-5); SQUAMOUS EPITHELIAL CELL,UR NONE SEEN (<= Few); WBC,URINE >25 /HPF (0-3)
[2023-08-30 16:36] VITALS: BP 98/60; O2SAT 96
--- NOTE | 2023-09-01 19:22 | ED Physician Documentation ---
ED Addendum - Addendum Addendum: 09/01/23 19:16 The patient's urine came back showing Proteus mirabilis. It is greater than 100,000. He had been here because of a Henry catheter blockage but it had been changed somewhat recently. He has ongoing blood typically with his Henry but concern would be potential infection. At this point given his presentation with a clogged Henry and showing a reasonable growth on culture, it seems reasonable to treat. It is sensitive to cephalosporins so simple enough to do Keflex 3 times a day for a week. I sent it to his preferred pharmacy.
== END 2023-08-30 16:39 | disposition home or self-care (01) ==
LOC: EDUNIT# → ED 14:31
DX: T83.9XXA Unspecified complication of genitourinary prosthetic device, implant and graft, initial encounter (principal); N40.0 Benign prostatic hyperplasia without lower urinary tract symptoms; I10 Essential (primary) hypertension; E03.9 Hypothyroidism, unspecified
CPT/HCPCS: 51702; 81001; 81003; 87077; 87086; 87181; 99283

== ENCOUNTER 2023-09-11 06:50 | Outpatient (CLI) | payer MEDICARE | END 2023-09-11 23:59 | disposition critical access hospital (66) | LOC: EMS 06:50 | PROVIDERS: ATTEND Emergency Medicine | DX: R10.2 Pelvic and perineal pain (principal); R39.89 Other symptoms and signs involving the genitourinary system; N39.0 Urinary tract infection, site not specified; Z96.0 Presence of urogenital implants | CPT/HCPCS: A0425; A0429 ==

== ENCOUNTER 2023-09-11 07:18 | Emergency (ER) | payer MEDICARE ==
[2023-09-11 07:50] LABS: BILIRUBIN,URINE NEGATIVE (NEGATIVE); GLUCOSE, URINE (UA) NEGATIVE (NEGATIVE); KETONES,URINE (UA) NEGATIVE (NEGATIVE); LEUKOCYTE ESTERASE, URINE LARGE (NEGATIVE); NITRITE,URINE POSITIVE (NEGATIVE); OCCULT BLOOD,URINE LARGE (NEGATIVE); PH,URINE 8.5 PH (5.0-7.5); PROTEIN,URINE 100 mg/dL (NEGATIVE); UROBILINOGEN,URINE 0.2 (NORMAL) E.U./dL (NORMAL)
[2023-09-11 07:52] LABS: CLARITY,URINE CLOUDY (CLEAR)
[2023-09-11 08:05] LABS: BACTERIA,URINE Many /HPF (None Seen); RBC,URINE TNTC /HPF (0-5); SQUAMOUS EPITHELIAL CELL,UR NONE SEEN (<= Few)
[2023-09-11 08:06] LABS: CRYSTALS,URINE 3-5 Triple Phosphate /LPF
--- NOTE | 2023-09-11 08:16 | ED Physician Documentation ---
History of Present Illness - Stated complaint Stated Complaint: CATH ISSUE - Chief complaint Chief Complaint: Abd Pain - History obtained from History obtained from: Patient, EMS - Additonal information Additional information: The patient is brought to the emergency department by EMS for chief complaint of lower abdominal pain and "my catheter is blocked". The patient has had a chronic indwelling Henry catheter for the last couple of months, secondary to prostatic enlargement. The patient just had his catheter changed about 10 days ago and was started on ciprofloxacin for UTI. The patient's culture reveals that the bacteria was sensitive to Cipro but resistant to Bactrim and nitrofurantoin. The patient just finished his Cipro course yesterday and states that he is not put out any urine since yesterday evening. He reports lower abdominal pain and a strong feeling of needing to urinate. No fevers or chills. No nausea or vomiting. No other complaints at this time. He is followed by urology here. PD PAST MEDICAL HISTORY - Past Medical History Cardiovascular: Hypertension, High cholesterol Respiratory: None Neuro: CVA Endocrine/Autoimmune: None, HyPOthyroidism : Benign prostate hypertrophy Psych: None Musculoskeletal: Chronic back pain - Past Surgical History Past Surgical History: Yes - Present Medications Home Medications: Ambulatory Orders Medication Instructions Recorded Confirmed Aspirin [Aspir 81] 81 mg PO DAILY 06/08/13 03/29/20 Atorvastatin [Lipitor] 40 mg PO HS 06/08/13 03/29/20 Baclofen [Lioresal] 10 mg PO TID 06/08/13 03/29/20 Docusate Sodium 100Mg Capsule 100 mg PO BID 06/08/13 03/29/20 [Colace 100Mg Capsule] Metoprolol Tartrate [Lopressor] 25 mg PO BID 06/08/13 03/29/20 Potassium Chloride 10 meq PO BID 06/08/13 03/30/20 Acetaminophen [Tylenol] 1 tab PO PRN PRN 03/30/20 03/30/20 Levothyroxine Sodium 200 mcg PO DAILY 03/30/20 03/30/20 Levothyroxine [Synthroid] 25 mcg PO .SAT AND SUN 03/30/20 03/30/20 Multivit-Minerals/Folic Acid 1 tab PO DAILY 03/30/20 03/30/20 [Adult One Daily Multivit Tab] Doxazosin [Cardura] 8 mg PO DAILY #30 tablet 04/02/20 Lactobacillus Acidophilus 1 each PO BID #30 capsule 04/02/20 [Acidophilus Probiotic] levoFLOXacin [Levaquin] 750 mg PO DAILY #17 tablet 04/02/20 Docusate Sodium 100Mg Capsule 100 mg PO DAILY #20 cap 06/27/23 [Colace 100Mg Capsule] Lactulose 10 gm PO BID PRN #300 ml 06/27/23 cephALEXin [Keflex] 500 mg PO TID #20 cap 06/27/23 cephALEXin [Keflex] 500 mg PO TID #20 cap 09/01/23 Ciprofloxacin HCl [Cipro] 500 mg PO BID #20 tablet 09/11/23 - Allergies Allergies/Adverse Reactions: Allergies Allergy/AdvReac Type Severity Reaction Status Date / Time No Known Drug Allergies Allergy Verified 09/11/23 07:29 - Social History Does the pt smoke?: Yes Smoking Status: Current every day smoker Does the pt drink ETOH?: No Does the pt have substance abuse?: No - Immunizations Immunizations are current?: Yes - POLST Patient has POLST: No POLST Status: Full Code PD ED PE NORMAL - Vitals Vital signs reviewed: Yes - General General: Alert and oriented X 3, Well developed/nourished, Other (Appears moderately uncomfortable, but no apparent distress.) - HEENT HEENT: Atraumatic, EOMI, Moist mucous membranes - Neck Neck: Supple, no meningeal sign - Cardiac Cardiac: RRR, No murmur - Respiratory Respiratory: No respiratory distress, Clear bilaterally - Abdomen Abdomen: Soft, Non distended, Other (Moderate tenderness across lower abdomen, no rebound or guarding.) - Derm Derm: Warm and dry - Extremities Extremities: No deformity - Neuro Neuro: Alert and oriented X 3 - Psych Psych: Normal mood, Normal affect Results - Vitals Vitals: Vital Signs - 24 hr 09/11/23 09/11/23 07:26 08:50 Temperature 35.9 C L 36.5 C Heart Rate 85 67 Respiratory 18 18 Rate Blood Pressure 144/97 H 137/83 H O2 Saturation 98 99 Oxygen O2 Source Room air - Labs Labs: Laboratory Tests 09/11/23 07:40 Urine Color YELLOW Urine Clarity CLOUDY Urine pH 8.5 H Ur Specific [place] 1.015 Urine Protein 100 H Urine Glucose (UA) NEGATIVE Urine Ketones NEGATIVE Urine Occult Blood LARGE H Urine Nitrite POSITIVE H Urine Bilirubin NEGATIVE Urine Urobilinogen 0.2 (NORMAL) Ur Leukocyte Esterase LARGE H Urine RBC TNTC H Urine WBC 11-25 H Ur Squamous Epith Cells NONE SEEN Urine Crystals 3-5 Triple Phosphate Urine Bacteria Many H Ur Microscopic Review INDICATED Urine Culture Comments INDICATED PD Medical Decision Making - ED course Complexity details: reviewed results, re-evaluated patient, considered differential, d/w patient ED course: Henry catheter was replaced with good drainage and very thick appearing urine. Urinalysis was strongly positive. The patient's duration of catheter use is relatively short, only the last couple months. Although it is possible that he is colonized in the short time, it is more likely that he has a UTI at this point, and so I will restart his antibiotics. I reviewed his culture results and Sensitivities from last time and found out the bacteria was sensitive to fluoroquinolones but resistant to Bactrim and nitrofurantoin. As such, I have restarted the ciprofloxacin. The patient is advised to follow-up with urology, with whom he is already established. We have discussed the usual indications for return. Departure - Departure Disposition: 01 Home, Self Care Clinical Impression: UTI (urinary tract infection) Qualifiers: Urinary tract infection type: acute cystitis Hematuria presence: with hematuria Qualified Code(s): N30.01 - Acute cystitis with hematuria Obstructed Henry catheter Qualifiers: Encounter type: initial encounter Qualified Code(s): T83.091A - Other mechanical complication of indwelling urethral catheter, initial encounter Condition: Stable Instructions: ED Catheter Care Henry, ED UTI Cystitis Male Prescriptions: Ciprofloxacin HCl [Cipro] 500 mg PO BID #20 tablet Comments: Your urinalysis is still positive for infection, some of which may be colonization (chronic presence of bacteria due to your catheter). Since you are having pain and obstruction of your catheter again, we have started you on antibiotics and have replaced the catheter. It is important that you follow-up with your urologist to determine a good long-term plan. You have been given your first dose of antibiotics here in the ED, and should pickle solution maker the remainder at the [facility] pharmacy in [place], where your prescription has been electronically transmitted. Please call today to make the next available appointment with your urologist. Forms: PCP List Discharge Date/Time: 09/11/23 08:56
[2023-09-11] MEDS: SULFAMETH/TRIMETH DS 800/160 MG TABLET PO STA (08:17)
[2023-09-11] MEDS: CIPROFLOXACIN 250 MG TABLET PO STA (08:45)
[2023-09-11 08:51] VITALS: BP 137/83; O2SAT 99
[2023-09-11] MEDS: ACETAMINOPHEN 325 MG TABLET PO STA (08:52)
== END 2023-09-11 08:56 | disposition home or self-care (01) ==
LOC: EDUNIT# → ED 07:18
DX: N30.01 Acute cystitis with hematuria (principal); T83.098A Other mechanical complication of other urinary catheter, initial encounter; I10 Essential (primary) hypertension; E78.00 Pure hypercholesterolemia, unspecified; E03.9 Hypothyroidism, unspecified; N40.0 Benign prostatic hyperplasia without lower urinary tract symptoms; F17.200 Nicotine dependence, unspecified, uncomplicated; Z79.82 Long term (current) use of aspirin; Z79.899 Other long term (current) drug therapy
CPT/HCPCS: 51702; 81001; 81003; 87077; 87086; 87181; 99283; 99284

== ENCOUNTER 2023-11-10 09:54 | Day surgery (SDC) | payer MEDICARE ==
[~2023-11-10 09:54] MED LIST: ceFAZolin 2 GM VIAL ONE
[2023-11-10] MEDS: LACTATED RINGERS 1,000 ML IV ONE ×2 (09:59→12:58)
--- NOTE | 2023-11-10 11:42 | ANESTHESIA ---
Pre-Anesthesia VS, & Labs - Diagnosis bph/bladder stone - Procedure urolift/cystolithopaxy Vital Signs: Temp Pulse Resp BP Pulse Ox O2 Flow Rate 36.4 C L 85 16 131/77 H 98 11/10/23 10:15 11/10/23 10:15 11/10/23 10:15 11/10/23 10:15 11/10/23 10:15 Height: 5 ft 10 in Weight (kg): 104 kg Body Mass Index: 32.8 BMI Classification: Obese - NPO >8 hours Home Medications and Allergies Home Medications: Ambulatory Orders Meclizine HCl 25 mg PO PRN PRN 11/04/23 Multivitamin 1 each PO DAILY 11/04/23 Tamsulosin [Flomax] 0.4 mg PO DAILY 11/04/23 Ibuprofen [Motrin] 400 mg PO ONCE 11/10/23 Aspirin [Aspir 81] 81 mg PO DAILY 06/08/13 Atorvastatin [Lipitor] 40 mg PO HS 06/08/13 Baclofen [Lioresal] 10 mg PO DAILY 06/08/13 Metoprolol Tartrate [Lopressor] 25 mg PO BID 06/08/13 Potassium Chloride 10 meq PO DAILY 06/08/13 Acetaminophen [Tylenol] 1 tab PO PRN PRN 03/30/20 Levothyroxine Sodium 200 mcg PO DAILY 03/30/20 Multivit-Minerals/Folic Acid [Adult One Daily Multivit Tab] 1 tab PO DAILY 03/30/20 Meclizine HCl 25 mg PO PRN PRN 11/04/23 Multivitamin 1 each PO DAILY 11/04/23 Tamsulosin [Flomax] 0.4 mg PO DAILY 11/04/23 Ibuprofen [Motrin] 400 mg PO ONCE 11/10/23 Allergies/Adverse Reactions: Allergies Allergy/AdvReac Type Severity Reaction Status Date / Time No Known Drug Allergies Allergy Verified 11/10/23 10:43 Anes History & Medical History - Anesthetic History Anesthesia Complications: reports: No previous complications Family history of Anesthesia Complications: Denies - Medical History Cardiovascular: reports: Hypertension, High cholesterol Pulmonary: reports: None Gastrointestinal: reports: None Urinary: reports: Benign prostate hypertrophy, Indwelling catheter Neuro: reports: CVA (left leg weakness, in wheelchair) Musculoskeletal: reports: Chronic back pain, Other Endocrine/Autoimmune: reports: HyPOthyroidism Skin: reports: None Smoking Status: Former smoker (quit 15 years ago) - Surgical History General: reports: Other Orthopedic: reports: Other Results - EKG Results EKG Comparison: Reviewed EKG Exam General: Alert Dental: Loose/Frag (lower), Dentures full Upper Mouth Openin Fingerbreadth Neck Mobility: Normal Mallampati classification: II Thyromental Distance: 4-6 cm Respiratory: Lungs clear Cardiovascular: Regular rate Plan Anesthesia Type: General Consent for Procedure(s) Verified and Reviewed: Yes Code Status: Attempt Resuscitation ASA classification: 3-Severe systemic disease Is this case an emergency?: No
[2023-11-10] MEDS ORDERED: ePHEDrine 50 MG/ML VIAL IVP PRN (11:43)
[2023-11-10] MEDS ORDERED: HYDROmorphone 0.5 MG/0.5 ML SYRINGE IVP PRN (11:43)
[2023-11-10] MEDS ORDERED: METOCLOPRAMIDE 10 MG/2 ML VIAL IVP PRN (11:43)
[2023-11-10] MEDS ORDERED: MORPHINE 2 MG/ML CARPUJECT IVP PRN (11:43)
[2023-11-10] MEDS ORDERED: ONDANSETRON 4 MG/2 ML VIAL IVP PRN ×2 (11:43→12:44)
[2023-11-10] MEDS ORDERED: ATROPINE ABBOJECT 1 MG/10 ML SYRINGE IVP PRN (11:43)
[2023-11-10] MEDS ORDERED: NALOXONE 0.4 MG/ML VIAL IVP PRN (11:43)
[2023-11-10] MEDS ORDERED: LIDOCAINE 2% URO-JET 5 ML SYRINGE UR ONE (11:52)
[2023-11-10] MEDS ORDERED: LACTATED RINGERS 1,000 ML IV SCH (12:00)
[2023-11-10] MEDS ORDERED: fentaNYL 100 MCG/2 ML VIAL ONE ×2 (12:05→13:33)
[2023-11-10] MEDS ORDERED: ONDANSETRON 4 MG/2 ML VIAL ONE (12:25)
[2023-11-10] MEDS ORDERED: DEXAMETHASONE 4 MG/ML VIAL ONE (12:25)
[2023-11-10] MEDS ORDERED: PROPOFOL 200 MG/20 ML VIAL IVP ONE (12:26)
[2023-11-10] MEDS: LIDOCAINE 2% URO-JET 5 ML SYRINGE UR ONE (12:35)
[2023-11-10] MEDS ORDERED: ePHEDrine 50 MG/ML VIAL IVP ONE (12:36)
--- NOTE | 2023-11-10 12:51 | Discharge Plan ---
Discharge Plan Problem Reviewed?: Yes Disposition: Home, Self Care Condition: Good Prescriptions: RX: oxyCODONE [Roxicodone] 5 mg PO Q4H PRN #10 tablet PRN Reason: Pain Diet: Regular Activity Restrictions: No Restrictions Shower Restrictions: No Driving Restrictions: No Instruction Topics: Cystoscopy Additional Instructions or Follow Up instructions: You have a follow-up on November [address] Brunson at 8:30 AM. Please arrive 15 early No Smoking: If you smoke, Please STOP! Call for help. Follow-up with: Viji Knight MD [Primary Care Provider] -
--- NOTE | 2023-11-10 12:56 | OPERATIVE REPORT ---
Operative Report - General Procedure Date: 11/10/23 Planned Procedure: Laser cystolitholapaxy Urolift Pre-Op Diagnosis: Urinary retention and bladder stones Procedure Performed: Cystoscopy, evacuation of bladder stones Urolift (4 implants) Post Op Diagnosis: Urinary retention and bladder stones - Procedure Note Primary Surgeon: Boy Anesthesia Provider: LIZBETH Peck Anesthesia Technique: General LMA Pathology: bladder stones Estimated Blood Loss (mL): 2 Findings: 4 urolift implants small stones evacuated Complications: none - Other Other Information/Narrative: After informed consent was obtained the patient was brought to the OR and laid in the supine position. He was anesthetized per anesthesia protocols, his old catheter was removed, he is prepped draped in usual sterile fashion in the dorsolithotomy position. A formal timeout was performed reconfirming the patient procedure. He was noted to have some ventral erosion of his urethral meatus from chronic catheter. A 22 Chinese cystoscope was advanced into his urinary bladder. He was noted to have a high riding median bar. He had lateral lobe obstructing prostate tissue. There was some difficulty getting into the bladder itself. In the bladder we could see that he had several small bladder stones. These were able to be evacuated with chest irrigation. The stones were sent for analysis. The cystoscope was removed A UroLift scope was advanced easily to urinary bladder. A UroLift implant was placed approximately 5 mm distal to the bladder neck on both sides laterally. We then placed an implant just proximal to the verumontanum to open of the anterior channel of the prostate bilaterally. There were four total implants. Using a obturator we reinspected the channel and see there was a wide open channel. There was some mild oozing from the prostate mucosa. A 22 Chinese three-way Henry catheter was placed after a Uro-Jet. He was placed on gentle continuous bladder irrigation and brought to the PACU without further incident. Will monitor him in the PACU and if doing well then he will likely be discharged later today with a catheter in place and plan for removal next week for voiding trial
[2023-11-10] MEDS ORDERED: hydrALAZINE INJ 20 MG/ML VIAL ONE (13:05)
[2023-11-10] MEDS ORDERED: HYDROcod/ACETAM 5/325 MG TABLET ONE (13:17)
[2023-11-10] MEDS: HYDROcod/ACETAM 5/325 MG TABLET PO PRN (13:19)
[2023-11-10] MEDS: fentaNYL 100 MCG/2 ML VIAL IVP PRN (13:33)
[2023-11-10 14:18] VITALS: BP 153/66
[2023-11-10 14:19] VITALS: O2SAT 97
--- NOTE | 2023-11-10 14:59 | ANESTHESIA POST OP EVALUATION ---
Anesthesia Post Eval - Post Anesthesia Eval Vitals: Last Vital Signs Temp 36.2 C L 11/10/23 14:07 Pulse 105 H 11/10/23 14:07 Resp 16 11/10/23 14:07 BP 153/66 H 11/10/23 14:07 Pulse Ox 97 11/10/23 14:07 O2 Flow Rate CV Function Including HR & BP: Stable Pain Control: Satisfactory Nausea & Vomiting: Negative Mental Status: Baseline Respiratory Status: Airway Patent Hydration Status: Satisfactory Anesthesia Complications: None
== END 2023-11-10 09:55 | disposition home or self-care (01) ==
LOC: SDS 09:54
PROVIDERS: ATTEND Urology
PROC: 0T7D8DZ Dilation of Urethra with Intraluminal Device, Via Natural or Artificial Opening Endoscopic (ICD-10-PCS; principal; 2023-11-10 12:15)
DX: N40.1 Benign prostatic hyperplasia with lower urinary tract symptoms (principal); R33.9 Retention of urine, unspecified; R33.8 Other retention of urine; N21.0 Calculus in bladder; E66.9 Obesity, unspecified; Z68.32 Body mass index [BMI] 32.0-32.9, adult; Z87.891 Personal history of nicotine dependence; I69.344 Monoplegia of lower limb following cerebral infarction affecting left non-dominant side; I10 Essential (primary) hypertension
CPT/HCPCS: 52441; 52442; 82365; A9270; J7120; L8699

== ENCOUNTER 2024-05-05 08:35 | Inpatient (IN) ==
[2024-05-05 10:40] LABS: BASOPHILS % (AUTO) 0.2 %; EOSINOPHILS % (AUTO) 0.1 %; HCT - HEMATOCRIT 41.4 % (42.0-52.0); HGB - HEMOGLOBIN 13.6 g/dL (14.0-18.0); LYMPHOCYTES # (AUTO) 0.3 10^3/uL (1.5-3.5); LYMPHOCYTES % (AUTO) 1.6 %; MEAN CORPUSCULAR HEMOGLOBIN 29.5 pg (27.0-31.0); MEAN CORPUSCULAR HGB CONC 32.9 g/dL (32.0-36.0); MEAN CORPUSCULAR VOLUME 89.8 fL (80.0-94.0); MEAN PLATELET VOLUME 9.5 fL (7.4-11.4); MONOCYTES # (AUTO) 0.6 10^3/uL (0.0-1.0); MONOCYTES % (AUTO) 3.5 %; NEUTROPHILS # (AUTO) 16.7 10^3/uL (1.5-6.6); NEUTROPHILS % (AUTO) 93.8 %; PLT - PLATELET COUNT 125 10^3/uL (130-450); RED BLOOD COUNT 4.61 10^6/uL (4.70-6.10); RED CELL DISTRIBUTION WIDTH 12.4 % (12.0-15.0); WHITE BLOOD COUNT 17.8 x10^3/uL (4.8-10.8)
[2024-05-05 10:55] LABS: ALBUMIN 3.1 g/dL (3.2-5.5); BILIRUBIN,TOTAL 1.2 mg/dL (0.2-1.0); CALCIUM 8.4 mg/dL (8.5-10.3); POTASSIUM 3.6 mmol/L (3.5-4.5); TOTAL PROTEIN 6.1 g/dL (6.4-8.9)
--- NOTE | 2024-05-05 11:12 | ED Physician Documentation ---
History of Present Illness Stated complaint Stated Complaint: GENERAL WEAKNESS Chief complaint Chief Complaint: General History obtained from History obtained from: Patient Additonal information Additional information: This is a 74-year-old gentleman with history of stroke with left leg weakness, usually wheelchair-bound but does self transfer, hypertension, hyperlipidemia. The last 2 days he has been generally weak and cannot transfer and has been bedbound which is not his baseline. He really has no other complaints except for chronic back pain and chronic left leg weakness from the prior stroke. He denies fevers, chills, headache, chest pain, trouble breathing, cough, abdominal pain, changes in bowel movements, or urinary complaints. Meds/Allgy Home Medications Ambulatory Orders Medication Instructions Recorded Confirmed aspirin 81 mg tablet,delayed 81 mg PO DAILY 06/08/13 11/10/23 release (Aspir-) atorvastatin 20 mg tablet 40 mg PO HS 06/08/13 11/10/23 baclofen 10 mg tablet 10 mg PO DAILY 06/08/13 11/10/23 metoprolol tartrate 25 mg tablet 25 mg PO BID 06/08/13 11/10/23 potassium chloride 10 mEq 10 meq PO DAILY 06/08/13 11/10/23 capsule,extended release acetaminophen 325 mg tablet 1 tab PO PRN PRN Pain 03/30/20 11/04/23 levothyroxine 200 mcg capsule 200 mcg PO DAILY 03/30/20 11/10/23 multivitamin with minerals-folic 1 tab PO DAILY 03/30/20 11/10/23 acid 0.4 mg tablet (Adult One Daily Multivitamin) lactulose 10 gram/15 mL oral 10 g (15 mL) PO BID PRN 06/27/23 11/04/23 solution Constipation #300 mL Meclizine Hcl 25 mg PO PRN PRN As Needed Per 11/04/23 11/10/23 Provider Orders multivitamin 1 ea PO DAILY 11/04/23 11/10/23 tamsulosin 0.4 mg capsule 0.4 mg PO DAILY 11/04/23 11/10/23 ibuprofen 400 mg tablet 400 mg PO ONCE 11/10/23 11/10/23 oxycodone 5 mg tablet 5 mg PO Q4H PRN Pain #10 tabs 11/10/23 Allergies Allergies Allergy/AdvReac Type Severity Reaction Status Date / Time No Known Drug Allergies Allergy Verified 05/05/24 08:52 PFSH Social History Social History Smoking Status: Former smoker (quit 15 years ago) If you are a former smoker, when did you quit? (Date/Year): 10 years ago Number of Years Smoked: 25 How many cigarettes a day do you smoke? (20 cigarettes=1 Pk): 30 Patient requests smoking cessation consult: No Initiate information on smoking cessation: No Relationship: Home Mobility Equipment: Cane Do you feel safe in your home environment?: Yes Suffered physical, verbal, emotional, or financial abuse?: No History of Abuse: No Frequency: Occasional Are you sexually active?: No POLST Patient has POLST: No POLST Status: Full Code Exam Constitutional He is generally weak modestly ill-appearing febrile and hypotensive gentleman laying in bed in no apparent distress. Respiratory breath sounds equal bilaterally, normal respiratory effort and clear to auscultation bilaterally Cardiovascular normal heart rate noted, regular rhythm noted and no murmur Gastrointestinal abdomen normal to inspection, abdomen soft to palpation and nontender to palpation Neurology GCS 15 His left leg is weak which she says is chronic and unchanged from prior, the remainder of extremities have decent strength. Results Vitals Vitals: Vital Signs - 24 hr 05/05/24 08:44 05/05/24 08:52 05/05/24 10:52 Temperature 37.2 C 37.1 C 38.1 C H Temperature Source Temporal Artery Scan Temporal Artery Scan Temporal Artery Scan Pulse Rate 100 118 H 106 H Respiratory Rate 20 22 20 Blood Pressure 103/76 117/73 91/53 L O2 Saturation 97 94 96 O2 Source Room air Room air Room air Pain Intensity 0 0 1 05/05/24 11:45 Temperature 38.9 C H Temperature Source Oral Pulse Rate 104 H Respiratory Rate 20 Blood Pressure 87/61 L O2 Saturation 96 O2 Source Room air Pain Intensity 1 Oxygen O2 Source Room air EKG (time done) 1122: EKG releavant findings:: EKG personally interpreted by author of this note. Relevant findings are: Sinus tachycardia with rate of 106, borderline LAE and LAD, no ischemic findings. No long QTc. Labs Labs: Laboratory Tests 05/05/24 05/05/24 05/05/24 10:36 11:26 11:29 WBC 17.8 H RBC 4.61 L Hgb 13.6 L Hct 41.4 L MCV 89.8 MCH 29.5 MCHC 32.9 RDW 12.4 Plt Count 125 L MPV 9.5 Neut # (Auto) 16.7 H Lymph # (Auto) 0.3 L Mineral # (Auto) 0.6 Eos # (Auto) 0.0 Baso # (Auto) 0.0 Absolute Nucleated RBC 0.00 Nucleated RBC % 0.0 Sodium 131 L Potassium 3.6 Chloride 101 Carbon Dioxide 24 Anion Gap 6.0 BUN 44 H Creatinine 3.0 H Estimated GFR (MDRD) 20 L Glucose 119 H Lactic Acid 2.5 H Calcium 8.4 L Total Bilirubin 1.2 H AST 32 ALT 21 Alkaline Phosphatase 59 Total Protein 6.1 L Albumin 3.1 L Globulin 3.0 Albumin/Globulin Ratio 1.0 Lipase 12 Urine Color Urine Clarity Urine pH Ur Specific [place] Urine Protein Urine Glucose (UA) Urine Ketones Urine Occult Blood Urine Nitrite Urine Bilirubin Urine Urobilinogen Ur Leukocyte Esterase Urine RBC Urine WBC Ur Squamous Epith Cells Urine Bacteria Urine Culture Comments Nasal Adenovirus (PCR) NOT DETECTED Nasal B. parapertussis DNA (PCR) NOT DETECTED Nasal Coronavir 229E PCR NOT DETECTED Nasal Coronavir HKU1 PCR NOT DETECTED Nasal Coronavir NL63 PCR NOT DETECTED Nasal Coronavir OC43 PCR NOT DETECTED Nasal Enterovir/Rhinovir PCR NOT DETECTED Nasal Influenza B PCR NOT DETECTED Nasal Influenza A PCR NOT DETECTED Nasal Parainfluen 1 PCR NOT DETECTED Nasal Parainfluen 2 PCR NOT DETECTED Nasal Parainfluen 3 PCR NOT DETECTED Nasal Parainfluen 4 PCR NOT DETECTED Nasal RSV (PCR) NOT DETECTED Nasal B.pertussis DNA PCR NOT DETECTED Nasal C.pneumoniae (PCR) NOT DETECTED Isreal Human Metapneumo PCR NOT DETECTED Nasal M.pneumoniae (PCR) NOT DETECTED Nasal SARS-CoV-2 (PCR) NOT DETECTED 05/05/24 12:22 WBC RBC Hgb Hct MCV MCH MCHC RDW Plt Count MPV Neut # (Auto) Lymph # (Auto) Mineral # (Auto) Eos # (Auto) Baso # (Auto) Absolute Nucleated RBC Nucleated RBC % Sodium Potassium Chloride Carbon Dioxide Anion Gap BUN Creatinine Estimated GFR (MDRD) Glucose Lactic Acid Calcium Total Bilirubin AST ALT Alkaline Phosphatase Total Protein Albumin Globulin Albumin/Globulin Ratio Lipase Urine Color YELLOW Urine Clarity SL. CLOUDY Urine pH 8.5 H Ur Specific [place] 1.020 Urine Protein 100 H Urine Glucose (UA) NEGATIVE Urine Ketones NEGATIVE Urine Occult Blood LARGE H Urine Nitrite POSITIVE H Urine Bilirubin NEGATIVE Urine Urobilinogen 1 (NORMAL) Ur Leukocyte Esterase LARGE H Urine RBC 11-25 H Urine WBC >25 H Ur Squamous Epith Cells RARE Squamous Urine Bacteria Moderate H Urine Culture Comments INDICATED Nasal Adenovirus (PCR) Nasal B. parapertussis DNA (PCR) Nasal Coronavir 229E PCR Nasal Coronavir HKU1 PCR Nasal Coronavir NL63 PCR Nasal Coronavir OC43 PCR Nasal Enterovir/Rhinovir PCR Nasal Influenza B PCR Nasal Influenza A PCR Nasal Parainfluen 1 PCR Nasal Parainfluen 2 PCR Nasal Parainfluen 3 PCR Nasal Parainfluen 4 PCR Nasal RSV (PCR) Nasal B.pertussis DNA PCR Nasal C.pneumoniae (PCR) Isreal Human Metapneumo PCR Nasal M.pneumoniae (PCR) Nasal SARS-CoV-2 (PCR) Rads (name of study) 1v cxr: Relevant Findings:: Final report received and EMP independent interpretation of test (nad) PD Medical Decision Making ED course ED course: 74-year-old gentleman presents generally weak, febrile with soft blood pressures in the 90/60 range. Differential diagnosis would include sepsis of any source, or viral illness. He was seen immediately upon my arrival to the emergency department at 11 AM when my shift started. He was hydrated with 2 L of normal saline, administered Rocephin after blood cultures. Workup demonstrates white count of 17,000 with acute kidney injury and lactic acidosis. His urinalysis was positive. Spoke with Dr. Noriega for admission at 12:45 PM. Critical Care Time(min): 35 Time Includes: Direct patient care, Review records, Reassess patient, Document care, Coordinate care, Medical consult and Family consult for tx dec Procedures included in critical care time: Peripheral IV Procedures excluded from critical care time: EKG Discharge Plan Discharge Patient Disposition: 66 [facility] DC/Xfer Condition: Serious Clinical Impression: UTI (urinary tract infection) Qualifiers: Urinary tract infection type: acute cystitis Hematuria presence: with hematuria Qualified Code(s): N30.01 - Acute cystitis with hematuria Sepsis Qualifiers: Sepsis type: sepsis due to unspecified organism Sepsis acute organ dysfunction status: with acute organ dysfunction Severe sepsis acute organ dysfunction type: acute renal failure Acute renal failure type: unspecified Severe sepsis shock status: without septic shock Qualified Code(s): A41.9 - Sepsis, unspecified organism Prescriptions: No Action potassium chloride 10 MEQ capsule, extended release 10 meq PO DAILY atorvastatin 20 MG tablet 40 mg PO HS aspirin [Aspir-81] 81 MG tablet,delayed release (DR/EC) 81 mg PO DAILY baclofen 10 MG tablet 10 mg PO DAILY metoprolol tartrate 25 MG tablet 25 mg PO BID acetaminophen 325 MG tablet 1 tab PO PRN PRN (Reason: Pain) multivit with min-folic acid [Adult One Daily Multivitamin] 0.4 MG tablet 1 tab PO DAILY levothyroxine 200 MCG capsule 200 mcg PO DAILY lactulose 10 GM/15 ML solution 10 g PO BID PRN (Reason: Constipation) Qty: 300 0RF multivitamin 1 EACH tablet 1 ea PO DAILY tamsulosin 0.4 MG capsule 0.4 mg PO DAILY Patient Comments: take 1 capsule by mouth once daily Meclizine Hcl 25 MG Tablet 25 mg PO PRN PRN (Reason: As Needed Per Provider Orders) ibuprofen 400 MG tablet 400 mg PO ONCE oxycodone 5 MG tablet 5 mg PO Q4H PRN (Reason: Pain) Qty: 10 0RF Rx Instructions: Take with food. Do Not drive while taking medication. Print Language: Welsh
[2024-05-05] MEDS: cefTRIAXone 1 GM in SODIUM CHLORIDE 0.9% MINIBAG 100 ML IV STA (11:39)
[2024-05-05] MEDS: SODIUM CHLORIDE 0.9% IV STA (11:39)
--- NOTE | 2024-05-05 11:45 | XRAY Report ---
PROCEDURE: XR Chest 1V INDICATIONS: fever TECHNIQUE: One view of the chest was acquired. COMPARISON: 03/29/2020. FINDINGS: Surgical changes and devices: None. Lungs and pleura: No pleural effusions or pneumothorax. No consolidation. Mediastinum: Mediastinal contours appear normal. Heart size is normal. Bones and chest wall: No suspicious bony lesions. Overlying soft tissues appear unremarkable. IMPRESSION: No acute cardiopulmonary process. Reviewed by: Missael Adler MD on 05/05/2024 11:44 AM [facility] Approved by: Missael Adler MD on 05/05/2024 11:44 AM PST Station ID: [id number]
[2024-05-05 11:47] LABS: LACTIC ACID, VENOUS 2.5 mmol/L (0.5-2.2)
[2024-05-05 12:31] LABS: BILIRUBIN,URINE NEGATIVE (NEGATIVE); GLUCOSE, URINE (UA) NEGATIVE (NEGATIVE); KETONES,URINE (UA) NEGATIVE (NEGATIVE); LEUKOCYTE ESTERASE, URINE LARGE (NEGATIVE); NITRITE,URINE POSITIVE (NEGATIVE); OCCULT BLOOD,URINE LARGE (NEGATIVE); PH,URINE 8.5 PH (5.0-7.5); PROTEIN,URINE 100 mg/dL (NEGATIVE); UROBILINOGEN,URINE 1 (NORMAL) E.U./dL (NORMAL)
[2024-05-05 12:37] LABS: BACTERIA,URINE Moderate /HPF (None Seen); CLARITY,URINE SL. CLOUDY (CLEAR); SQUAMOUS EPITHELIAL CELL,UR RARE Squamous (<= Few); WBC,URINE >25 /HPF (0-3)
[2024-05-05 12:38] LABS: B. PARAPERTUSSIS- RESP PCR PAN NOT DETECTED; B. PERTUSSIS- RESP PCR PANEL NOT DETECTED; C. PNEUMONIAE- RESP PCR PANEL NOT DETECTED; CORONAVIRUS 229E-RESP PCR NOT DETECTED; CORONAVIRUS HKU1-RESP PCR NOT DETECTED; CORONAVIRUS NL63-RESP PCR NOT DETECTED; CORONAVIRUS OC43-RESP PCR NOT DETECTED; HUMAN METAPNEUMOVIRUS NOT DETECTED; INFLUENZA A- RESP PCR PANEL NOT DETECTED; INFLUENZA B - RESP PCR PANEL NOT DETECTED; M. PNEUMONIAE- RESP PCR PANEL NOT DETECTED; PARAINFLUENZA VIRUS 1 NOT DETECTED; PARAINFLUENZA VIRUS 2 NOT DETECTED; PARAINFLUENZA VIRUS 4 NOT DETECTED; RHINOVIRUS/ENTEROVIRUS NOT DETECTED; RSV- RESP PCR PANEL NOT DETECTED; SARS-CoV-2 -RESP PCR PANEL NOT DETECTED
--- NOTE | 2024-05-05 13:31 | HISTORY & PHYSICAL EXAMINATION ---
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 The last 2 days he has been generally weak and cannot transfer and has been bedbound which is not his baseline. He really has no other complaints except for chronic back pain and chronic left leg weakness from the prior stroke. He denies fevers, chills, headache, chest pain, trouble breathing, cough, abdominal pain, changes in bowel movements, or urinary complaints.. Laboratory findings in the ER indicate leukocytosis of 17.8, hyponatremia 131, elevated creatinine of 3.0, baseline around 1.5. Elevated lactate At 2.5. Chest x-ray is negative for any cardiopulmonary processes. Patient received 1 dose of Rocephin I will start her on IV fluids. Patient is full code. Meds/Allgy Home Medications Ambulatory Orders Medication Instructions Recorded Confirmed aspirin 81 mg tablet,delayed 81 mg PO DAILY 06/08/13 11/10/23 release (Aspir-) atorvastatin 20 mg tablet 40 mg PO HS 06/08/13 11/10/23 baclofen 10 mg tablet 10 mg PO DAILY 06/08/13 11/10/23 metoprolol tartrate 25 mg tablet 25 mg PO BID 06/08/13 11/10/23 potassium chloride 10 mEq 10 meq PO DAILY 06/08/13 11/10/23 capsule,extended release acetaminophen 325 mg tablet 1 tab PO PRN PRN Pain 03/30/20 11/04/23 levothyroxine 200 mcg capsule 200 mcg PO DAILY 03/30/20 11/10/23 multivitamin with minerals-folic 1 tab PO DAILY 03/30/20 11/10/23 acid 0.4 mg tablet (Adult One Daily Multivitamin) lactulose 10 gram/15 mL oral 10 g (15 mL) PO BID PRN 06/27/23 11/04/23 solution Constipation #300 mL Meclizine Hcl 25 mg PO PRN PRN As Needed Per 11/04/23 11/10/23 Provider Orders multivitamin 1 ea PO DAILY 11/04/23 11/10/23 tamsulosin 0.4 mg capsule 0.4 mg PO DAILY 11/04/23 11/10/23 ibuprofen 400 mg tablet 400 mg PO ONCE 11/10/23 11/10/23 oxycodone 5 mg tablet 5 mg PO Q4H PRN Pain #10 tabs 11/10/23 Allergies Allergies Allergy/AdvReac Type Severity Reaction Status Date / Time No Known Drug Allergies Allergy Verified 05/05/24 08:52 PFSH Social History Social History Smoking Status: Former smoker (quit 15 years ago) If you are a former smoker, when did you quit? (Date/Year): 10 years ago Number of Years Smoked: 25 How many cigarettes a day do you smoke? (20 cigarettes=1 Pk): 30 Patient requests smoking cessation consult: No Initiate information on smoking cessation: No Relationship: Home Mobility Equipment: Cane Do you feel safe in your home environment?: Yes Suffered physical, verbal, emotional, or financial abuse?: No History of Abuse: No Frequency: Occasional Are you sexually active?: No POLST Patient has POLST: No POLST Status: Full Code Review of Systems Status of ROS: 10 or more systems reviewed and unremarkable except as noted in history and below Exam Constitutional normal general appearance and no apparent distress HENMT normocephalic and head/scalp atraumatic Eyes PERRL and EOMs intact bilaterally Neck/C-Spine visual inspection normal and trachea midline Chest inspection of chest normal and palpation of chest normal Respiratory breath sounds equal bilaterally and normal respiratory effort Cardiovascular normal heart rate noted and regular rhythm noted Borderline hypotensive Gastrointestinal abdomen normal to inspection and abdomen soft to palpation Extremities normal to inspection and normal to palpation Resection for left lower extremity weakness due to right CVA Neurology property preservation specialist II-XII intact Psychiatry mental status grossly normal Skin skin color normal and no rash Conclusion/Plan Problem List (1) UTI (urinary tract infection): Plan: Patient has a history of recurrent pansensitive Proteus UTIs. Patient with a history of BPH Start patient on Rocephin Monitor blood cultures. Qualifiers: Hematuria presence: with hematuria Urinary tract infection type: acute cystitis Qualified Code(s): N30.01 - Acute cystitis with hematuria (2) AKYLAH (acute kidney injury): Plan: KAYLAH most likely secondary to sepsis in the background of UTI. Continue to monitor urine output, IV fluids Consider retroperitoneal ultrasound If KAYLAH is Not improving (3) Severe sepsis: Plan: Recurrent UTI with KAYLAH. Manage as above. Trend lactate Every 4 (4) Leukocytosis: Plan: Rocephin for garcia-sensitive Proteus (5) Hyponatremia: Plan: Continue to monitor sodium in the background of IV fluids Aggressive resuscitation. Lab Results Lab results reviewed: Yes 05/05/24 10:36 05/05/24 10:36 Diagnostic Imaging Results Diagnostic Imaging Results: positive Final report reviewed
[2024-05-05 13:43] LABS: BASOPHILS % (AUTO) 0.2 %; EOSINOPHILS # (AUTO) 0.2 10^3/uL (0.0-0.7); EOSINOPHILS % (AUTO) 1.1 %; HGB - HEMOGLOBIN 11.4 g/dL (14.0-18.0); LYMPHOCYTES # (AUTO) 0.3 10^3/uL (1.5-3.5); LYMPHOCYTES % (AUTO) 1.4 %; MEAN CORPUSCULAR HEMOGLOBIN 29.6 pg (27.0-31.0); MEAN CORPUSCULAR HGB CONC 33.5 g/dL (32.0-36.0); MEAN CORPUSCULAR VOLUME 88.3 fL (80.0-94.0); MEAN PLATELET VOLUME 9.6 fL (7.4-11.4); MONOCYTES # (AUTO) 1.1 10^3/uL (0.0-1.0); NEUTROPHILS # (AUTO) 19.2 10^3/uL (1.5-6.6); PLT - PLATELET COUNT 128 10^3/uL (130-450); RED BLOOD COUNT 3.85 10^6/uL (4.70-6.10); RED CELL DISTRIBUTION WIDTH 12.6 % (12.0-15.0); WHITE BLOOD COUNT 21.1 x10^3/uL (4.8-10.8)
[2024-05-05 13:44] LABS: SLIDE REVIEW? Indicated
[2024-05-05 13:56] LABS: PLATELET ESTIMATE, MANUAL NORMAL (130-450,000) (NORMAL); PLATELET MORPHOLOGY NORMAL APPEARANCE (NORMAL); RBC MORPHOLOGY (MULTIPLE) NORMAL APPEARANCE (NORMAL); WBC MORPHOLOGY (MULTIPLE) 1+ TOXIC GRANULATION (NORMAL)
[2024-05-05] MEDS ORDERED: SODIUM CHLORIDE FLUSH 0.9% 10 ML SYRINGE IVP PRN (14:14)
[2024-05-05] MEDS ORDERED: ONDANSETRON ODT 4 MG TABLET TL PRN (14:14)
[2024-05-05] MEDS: HEPARIN 5,000 UNIT/ML VIAL SUBQ SCH (14:55)
[2024-05-05] MEDS: SODIUM CHLORIDE 0.9% 1,000 ML IV SCH (15:23)
[2024-05-05] MEDS: cefTRIAXone 2 GM in SODIUM CHLORIDE 0.9% MINIBAG 100 ML IV STA (16:01)
--- NOTE | 2024-05-05 16:44 | PHARMACY PROGRESS NOTE ---
Best Possible Medication History Admit Date and Time: 05/05/24 [id number] Home Medications Medication Instructions Recorded Confirmed Type aspirin 81 mg tablet,delayed 81 mg PO DAILY 06/08/13 05/05/24 History release (Aspir-) baclofen 10 mg tablet 10 mg PO DAILY 06/08/13 05/05/24 History metoprolol tartrate 25 mg tablet 25 mg PO BID 06/08/13 05/05/24 History levothyroxine 200 mcg capsule 200 mcg PO DAILY 03/30/20 05/05/24 History multivitamin with minerals-folic 1 tab PO DAILY 03/30/20 05/05/24 History acid 0.4 mg tablet (Adult One Daily Multivitamin) lactulose 10 gram/15 mL oral 10 g (15 mL) PO BID PRN 06/27/23 05/05/24 Rx solution Constipation #300 mL multivitamin 1 ea PO DAILY 11/04/23 05/05/24 History tamsulosin 0.4 mg capsule 0.4 mg PO DAILY 11/04/23 05/05/24 History acetaminophen 500 mg tablet 500 mg PO Q4-6H PRN pain 05/05/24 05/05/24 History atorvastatin 40 mg tablet 40 mg PO HS 05/05/24 05/05/24 History meclizine 25 mg tablet 25 mg PO BID PRN nausea 05/05/24 05/05/24 History potassium chloride 10 mEq 10 meq PO BID 05/05/24 05/05/24 History tablet,extended release Processed by: Nursing Medications reviewed in ED?: No Medication History completed: Yes Patient Interview: Completed Secondary Source(s): Physician records and Insurance records [facility] Statement: As the person ultimately responsible for medication therapy, providers are able to order a medication from an existing home medication list in [facility] via the "Reconcile Routine" prior to Confirmation of that medication by technical support specialist. Such practice is discouraged except when the physician, in their clinical judgment, deems that a medical need exists for a medication without regard to previous use.
[2024-05-05] MEDS: SODIUM CHLORIDE FLUSH 0.9% 10 ML SYRINGE IVP SCH (17:48)
[2024-05-05 18:43] LABS: LACTIC ACID, VENOUS 2.6 mmol/L (0.5-2.2)
[2024-05-06] MEDS: ACETAMINOPHEN 325 MG TABLET PO PRN (00:26)
[2024-05-06] MEDS: SODIUM CHLORIDE 0.9% 1,000 ML IV ONE (01:25)
[2024-05-06] MEDS: ALBUMIN 25% 12.5 GM/50 ML VIAL IV SCH (02:12)
[2024-05-06 05:21] LABS: BASOPHILS % (AUTO) 0.2 %; HCT - HEMATOCRIT 33.2 % (42.0-52.0); HGB - HEMOGLOBIN 10.6 g/dL (14.0-18.0); LYMPHOCYTES # (AUTO) 0.4 10^3/uL (1.5-3.5); LYMPHOCYTES % (AUTO) 3.1 %; MEAN CORPUSCULAR HEMOGLOBIN 29.3 pg (27.0-31.0); MEAN CORPUSCULAR HGB CONC 31.9 g/dL (32.0-36.0); MEAN CORPUSCULAR VOLUME 91.7 fL (80.0-94.0); MEAN PLATELET VOLUME 9.8 fL (7.4-11.4); MONOCYTES # (AUTO) 0.9 10^3/uL (0.0-1.0); NEUTROPHILS % (AUTO) 88.1 %; PLT - PLATELET COUNT 102 10^3/uL (130-450); RED BLOOD COUNT 3.62 10^6/uL (4.70-6.10); RED CELL DISTRIBUTION WIDTH 12.7 % (12.0-15.0); WHITE BLOOD COUNT 11.4 x10^3/uL (4.8-10.8)
[2024-05-06 05:38] LABS: CALCIUM 7.3 mg/dL (8.5-10.3); CREATININE 2.7 mg/dL (0.6-1.3); POTASSIUM 3.5 mmol/L (3.5-4.5)
[2024-05-06] MEDS: cefTRIAXone 2 GM in SODIUM CHLORIDE 0.9% MINIBAG 100 ML IV SCH (08:44)
[2024-05-06] MEDS ORDERED: MECLIZINE 12.5 MG TABLET PO PRN (09:08)
--- NOTE | 2024-05-06 09:08 | PROVIDER PROGRESS NOTE ---
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 The last 2 days he has been generally weak and cannot transfer and has been bedbound which is not his baseline. He really has no other complaints except for chronic back pain and chronic left leg weakness from the prior stroke. He denies fevers, chills, headache, chest pain, trouble breathing, cough, abdominal pain, changes in bowel movements, or urinary complaints.. Laboratory findings in the ER indicate leukocytosis of 17.8, hyponatremia 131, elevated creatinine of 3.0, baseline around 1.5. Elevated lactate At 2.5. Chest x-ray is negative for any cardiopulmonary processes. Patient received 1 dose of Rocephin I will start her on IV fluids. 05/06/2024: Patient had episodes of hypotension during the nighttime, he was given fluids with albumin. Hypotension has resolved. Patient feels well, has no complaints. 05/16 blood culture indicated Proteus bacteremia. Current Medications Current Medications Current Medications: Current Medications Generic Name Dose Route Start Last Admin Trade Name Freq PRN Reason Stop Dose Admin Acetaminophen 650 mg 05/05/24 14:14 05/06/24 08:44 Acetaminophen 325 Mg Tablet PO 650 mg Q4HR PRN Administration Pain 1 to 4, or Fever Heparin Sodium (Porcine) 5,000 unit 05/05/24 14:14 05/06/24 08:44 Heparin 5,000 Unit/Ml Vial SUBQ 5,000 unit BID ANNABELLE Administration Ceftriaxone Sodium 2 gm/ 100 mls @ 200 mls/hr 05/06/24 09:00 05/06/24 08:44 Sodium Chloride IV 200 mls/hr DAILY ANNABELLE Administration Sodium Chloride 1,000 mls @ 100 mls/hr 05/05/24 14:14 05/06/24 03:39 Normal Saline 0.9% IV 100 mls/hr .Q10H ANNABELLE Administration Ondansetron HCl 4 mg 05/05/24 14:14 Ondansetron Odt 4 Mg Tablet TL Q6HR PRN Nausea / Vomiting Oxycodone HCl 5 mg 05/05/24 14:14 Oxycodone 5 Mg Tablet PO Q4HR PRN Pain 5 to 7 Sodium Chloride 10 ml 05/05/24 14:14 Sodium Chloride Flush 0.9% 10 Ml Syringe IVP PRN PRN NEEDED PER PROVIDER ORDERS Sodium Chloride 10 ml 05/05/24 17:00 05/06/24 00:29 Sodium Chloride Flush 0.9% 10 Ml Syringe IVP 10 ml [id number],1700 ANNABELLE Administration Objective Vital Signs/Intake & Output Reviewed Vital Signs: Yes Vital Signs: Vital Signs x48h Temp Pulse Resp BP Pulse Ox 05/06/24 07:56 37.2 C 93 26 H 111/64 94 05/06/24 05:00 36.6 C 94 27 H 108/60 96 05/06/24 03:50 36.9 C 05/06/24 02:10 101 H 24 125/66 96 05/06/24 01:28 37.5 C Intake & Output: Intake & Output 05/03/24 05/04/24 05/05/24 05/06/24 23:59 23:59 23:59 23:59 Intake Total 3878 / 3878 2440 / 2440 Output Total 150 / 150 425 / 425 Balance 3728 / 3728 2014 Weight (kg) 118.5 kg Objective General Appearance: positive No acute distress and Alert Eyes Bilateral: positive Normal inspection and PERRL ENT: positive ENT inspection nml Neck: positive Nml inspection and Trachea midline Respiratory: positive Chest non-tender and No respiratory distress Cardiovascular: positive Regular rate & rhythm and No murmur Abdomen: positive Non-tender and No organomegaly Skin: positive Color nml and No rash Extremities: positive Non-tender and Other (Left-sided lower extremity deficits secondary to right CVA in the past) Neurologic/Psychiatric: positive Oriented x3 and CN's nml (2-12) Lab Results 05/06/24 05:08 05/06/24 05:08 Other Labs: Lab Results x24hrs 05/06/24 05/06/24 05/05/24 Range/Units 05:08 00:32 20:59 WBC 11.4 H (4.8-10.8) x10^3/uL RBC 3.62 L (4.70-6.10) 10^6/uL Hgb 10.6 L (14.0-18.0) g/dL Hct 33.2 L (42.0-52.0) % MCV 91.7 (80.0-94.0) fL MCH 29.3 (27.0-31.0) pg MCHC 31.9 L (32.0-36.0) g/dL RDW 12.7 (12.0-15.0) % Plt Count 102 L (130-450) 10^3/uL MPV 9.8 (7.4-11.4) fL Neut # (Auto) 10.0 H (1.5-6.6) 10^3/uL Lymph # (Auto) 0.4 L (1.5-3.5) 10^3/uL [place] # (Auto) 0.9 (0.0-1.0) 10^3/uL Eos # (Auto) 0.0 (0.0-0.7) 10^3/uL Baso # (Auto) 0.0 (0.0-0.1) 10^3/uL Absolute Nucleated RBC 0.00 x10^3/uL Nucleated RBC % 0.0 /100WBC Manual Slide Review WBC Morphology (NORMAL) Platelet Estimate (NORMAL) Platelet Morphology (NORMAL) RBC Morph Micro Appear (NORMAL) Sodium 135 (135-145) mmol/L Potassium 3.5 (3.5-4.5) mmol/L Chloride 110 (101-111) mmol/L Carbon Dioxide 19 L (21-32) mmol/L Anion Gap 6.0 (6-13) BUN 46 H (6-20) mg/dL Creatinine 2.7 H (0.6-1.3) mg/dL Estimated GFR (MDRD) 23 L (>89) Glucose 151 H (74-104) mg/dL Lactic Acid 1.4 2.7 H (0.5-2.2) mmol/L Calcium 7.3 L (8.5-10.3) mg/dL Total Bilirubin (0.2-1.0) mg/dL AST (10-42) IU/L ALT (10-60) IU/L Alkaline Phosphatase (42-121) IU/L Total Protein (6.4-8.9) g/dL Albumin (3.2-5.5) g/dL Globulin (2.1-4.2) g/dL Albumin/Globulin Ratio (1.0-2.2) Lipase (11-82) U/L Urine Color Urine Clarity (CLEAR) Urine pH (5.0-7.5) PH Ur Specific [place] (1.002-1.030) Urine Protein (NEGATIVE) mg/dL Urine Glucose (UA) (NEGATIVE) mg/dL Urine Ketones (NEGATIVE) mg/dL Urine Occult Blood (NEGATIVE) Urine Nitrite (NEGATIVE) Urine Bilirubin (NEGATIVE) Urine Urobilinogen (NORMAL) E.U./dL Ur Leukocyte Esterase (NEGATIVE) Urine RBC (0-5) /HPF Urine WBC (0-3) /HPF Ur Squamous Epith Cells (<= Few) Urine Bacteria (None Seen) /HPF Urine Culture Comments Nasal Adenovirus (PCR) Nasal B. parapertussis DNA (PCR) Nasal Coronavir 229E PCR Nasal Coronavir HKU1 PCR Nasal Coronavir NL63 PCR Nasal Coronavir OC43 PCR Nasal Enterovir/Rhinovir PCR Nasal Influenza B PCR Nasal Influenza A PCR Nasal Parainfluen 1 PCR Nasal Parainfluen 2 PCR Nasal Parainfluen 3 PCR Nasal Parainfluen 4 PCR Nasal RSV (PCR) Nasal B.pertussis DNA PCR Nasal C.pneumoniae (PCR) Isreal Human Metapneumo PCR Nasal M.pneumoniae (PCR) Nasal SARS-CoV-2 (PCR) 05/05/24 05/05/24 05/05/24 Range/Units 18:26 14:45 13:27 WBC 21.1 H (4.8-10.8) x10^3/uL RBC 3.85 L (4.70-6.10) 10^6/uL Hgb 11.4 L (14.0-18.0) g/dL Hct 34.0 L (42.0-52.0) % MCV 88.3 (80.0-94.0) fL MCH 29.6 (27.0-31.0) pg MCHC 33.5 (32.0-36.0) g/dL RDW 12.6 (12.0-15.0) % Plt Count 128 L (130-450) 10^3/uL MPV 9.6 (7.4-11.4) fL Neut # (Auto) 19.2 H (1.5-6.6) 10^3/uL Lymph # (Auto) 0.3 L (1.5-3.5) 10^3/uL [place] # (Auto) 1.1 H (0.0-1.0) 10^3/uL Eos # (Auto) 0.2 (0.0-0.7) 10^3/uL Baso # (Auto) 0.0 (0.0-0.1) 10^3/uL Absolute Nucleated RBC 0.00 x10^3/uL Nucleated RBC % 0.0 /100WBC Manual Slide Review Indicated WBC Morphology 1+ TOXIC GRANULATION (NORMAL) Platelet Estimate NORMAL (130-450,000) (NORMAL) Platelet Morphology NORMAL APPEARANCE (NORMAL) RBC Morph Micro Appear NORMAL APPEARANCE (NORMAL) Sodium (135-145) mmol/L Potassium (3.5-4.5) mmol/L Chloride (101-111) mmol/L Carbon Dioxide (21-32) mmol/L Anion Gap (6-13) BUN (6-20) mg/dL Creatinine (0.6-1.3) mg/dL Estimated GFR (MDRD) (>89) Glucose (74-104) mg/dL Lactic Acid 2.6 H 2.0 (0.5-2.2) mmol/L Calcium (8.5-10.3) mg/dL Total Bilirubin (0.2-1.0) mg/dL AST (10-42) IU/L ALT (10-60) IU/L Alkaline Phosphatase (42-121) IU/L Total Protein (6.4-8.9) g/dL Albumin (3.2-5.5) g/dL Globulin (2.1-4.2) g/dL Albumin/Globulin Ratio (1.0-2.2) Lipase (11-82) U/L Urine Color Urine Clarity (CLEAR) Urine pH (5.0-7.5) PH Ur Specific [place] (1.002-1.030) Urine Protein (NEGATIVE) mg/dL Urine Glucose (UA) (NEGATIVE) mg/dL Urine Ketones (NEGATIVE) mg/dL Urine Occult Blood (NEGATIVE) Urine Nitrite (NEGATIVE) Urine Bilirubin (NEGATIVE) Urine Urobilinogen (NORMAL) E.U./dL Ur Leukocyte Esterase (NEGATIVE) Urine RBC (0-5) /HPF Urine WBC (0-3) /HPF Ur Squamous Epith Cells (<= Few) Urine Bacteria (None Seen) /HPF Urine Culture Comments Nasal Adenovirus (PCR) Nasal B. parapertussis DNA (PCR) Nasal Coronavir 229E PCR Nasal Coronavir HKU1 PCR Nasal Coronavir NL63 PCR Nasal Coronavir OC43 PCR Nasal Enterovir/Rhinovir PCR Nasal Influenza B PCR Nasal Influenza A PCR Nasal Parainfluen 1 PCR Nasal Parainfluen 2 PCR Nasal Parainfluen 3 PCR Nasal Parainfluen 4 PCR Nasal RSV (PCR) Nasal B.pertussis DNA PCR Nasal C.pneumoniae (PCR) Isreal Human Metapneumo PCR Nasal M.pneumoniae (PCR) Nasal SARS-CoV-2 (PCR) 05/05/24 05/05/24 05/05/24 Range/Units 12:22 11:29 11:26 WBC (4.8-10.8) x10^3/uL RBC (4.70-6.10) 10^6/uL Hgb (14.0-18.0) g/dL Hct (42.0-52.0) % MCV (80.0-94.0) fL MCH (27.0-31.0) pg MCHC (32.0-36.0) g/dL RDW (12.0-15.0) % Plt Count (130-450) 10^3/uL MPV (7.4-11.4) fL Neut # (Auto) (1.5-6.6) 10^3/uL Lymph # (Auto) (1.5-3.5) 10^3/uL [place] # (Auto) (0.0-1.0) 10^3/uL Eos # (Auto) (0.0-0.7) 10^3/uL Baso # (Auto) (0.0-0.1) 10^3/uL Absolute Nucleated RBC x10^3/uL Nucleated RBC % /100WBC Manual Slide Review WBC Morphology (NORMAL) Platelet Estimate (NORMAL) Platelet Morphology (NORMAL) RBC Morph Micro Appear (NORMAL) Sodium (135-145) mmol/L Potassium (3.5-4.5) mmol/L Chloride (101-111) mmol/L Carbon Dioxide (21-32) mmol/L Anion Gap (6-13) BUN (6-20) mg/dL Creatinine (0.6-1.3) mg/dL Estimated GFR (MDRD) (>89) Glucose (74-104) mg/dL Lactic Acid 2.5 H (0.5-2.2) mmol/L Calcium (8.5-10.3) mg/dL Total Bilirubin (0.2-1.0) mg/dL AST (10-42) IU/L ALT (10-60) IU/L Alkaline Phosphatase (42-121) IU/L Total Protein (6.4-8.9) g/dL Albumin (3.2-5.5) g/dL Globulin (2.1-4.2) g/dL Albumin/Globulin Ratio (1.0-2.2) Lipase (11-82) U/L Urine Color YELLOW Urine Clarity SL. CLOUDY (CLEAR) Urine pH 8.5 H (5.0-7.5) PH Ur Specific [place] 1.020 (1.002-1.030) Urine Protein 100 H (NEGATIVE) mg/dL Urine Glucose (UA) NEGATIVE (NEGATIVE) mg/dL Urine Ketones NEGATIVE (NEGATIVE) mg/dL Urine Occult Blood LARGE H (NEGATIVE) Urine Nitrite POSITIVE H (NEGATIVE) Urine Bilirubin NEGATIVE (NEGATIVE) Urine Urobilinogen 1 (NORMAL) (NORMAL) E.U./dL Ur Leukocyte Esterase LARGE H (NEGATIVE) Urine RBC 11-25 H (0-5) /HPF Urine WBC >25 H (0-3) /HPF Ur Squamous Epith Cells RARE Squamous (<= Few) Urine Bacteria Moderate H (None Seen) /HPF Urine Culture Comments INDICATED Nasal Adenovirus (PCR) NOT DETECTED Nasal B. parapertussis DNA (PCR) NOT DETECTED Nasal Coronavir 229E PCR NOT DETECTED Nasal Coronavir HKU1 PCR NOT DETECTED Nasal Coronavir NL63 PCR NOT DETECTED Nasal Coronavir OC43 PCR NOT DETECTED Nasal Enterovir/Rhinovir PCR NOT DETECTED Nasal Influenza B PCR NOT DETECTED Nasal Influenza A PCR NOT DETECTED Nasal Parainfluen 1 PCR NOT DETECTED Nasal Parainfluen 2 PCR NOT DETECTED Nasal Parainfluen 3 PCR NOT DETECTED Nasal Parainfluen 4 PCR NOT DETECTED Nasal RSV (PCR) NOT DETECTED Nasal B.pertussis DNA PCR NOT DETECTED Nasal C.pneumoniae (PCR) NOT DETECTED Isreal Human Metapneumo PCR NOT DETECTED Nasal M.pneumoniae (PCR) NOT DETECTED Nasal SARS-CoV-2 (PCR) NOT DETECTED 05/05/24 Range/Units 10:36 WBC 17.8 H (4.8-10.8) x10^3/uL RBC 4.61 L (4.70-6.10) 10^6/uL Hgb 13.6 L (14.0-18.0) g/dL Hct 41.4 L (42.0-52.0) % MCV 89.8 (80.0-94.0) fL MCH 29.5 (27.0-31.0) pg MCHC 32.9 (32.0-36.0) g/dL RDW 12.4 (12.0-15.0) % Plt Count 125 L (130-450) 10^3/uL MPV 9.5 (7.4-11.4) fL Neut # (Auto) 16.7 H (1.5-6.6) 10^3/uL Lymph # (Auto) 0.3 L (1.5-3.5) 10^3/uL [place] # (Auto) 0.6 (0.0-1.0) 10^3/uL Eos # (Auto) 0.0 (0.0-0.7) 10^3/uL Baso # (Auto) 0.0 (0.0-0.1) 10^3/uL Absolute Nucleated RBC 0.00 x10^3/uL Nucleated RBC % 0.0 /100WBC Manual Slide Review WBC Morphology (NORMAL) Platelet Estimate (NORMAL) Platelet Morphology (NORMAL) RBC Morph Micro Appear (NORMAL) Sodium 131 L (135-145) mmol/L Potassium 3.6 (3.5-4.5) mmol/L Chloride 101 (101-111) mmol/L Carbon Dioxide 24 (21-32) mmol/L Anion Gap 6.0 (6-13) BUN 44 H (6-20) mg/dL Creatinine 3.0 H (0.6-1.3) mg/dL Estimated GFR (MDRD) 20 L (>89) Glucose 119 H (74-104) mg/dL Lactic Acid (0.5-2.2) mmol/L Calcium 8.4 L (8.5-10.3) mg/dL Total Bilirubin 1.2 H (0.2-1.0) mg/dL AST 32 (10-42) IU/L ALT 21 (10-60) IU/L Alkaline Phosphatase 59 (42-121) IU/L Total Protein 6.1 L (6.4-8.9) g/dL Albumin 3.1 L (3.2-5.5) g/dL Globulin 3.0 (2.1-4.2) g/dL Albumin/Globulin Ratio 1.0 (1.0-2.2) Lipase 12 (11-82) U/L Urine Color Urine Clarity (CLEAR) Urine pH (5.0-7.5) PH Ur Specific [place] (1.002-1.030) Urine Protein (NEGATIVE) mg/dL Urine Glucose (UA) (NEGATIVE) mg/dL Urine Ketones (NEGATIVE) mg/dL Urine Occult Blood (NEGATIVE) Urine Nitrite (NEGATIVE) Urine Bilirubin (NEGATIVE) Urine Urobilinogen (NORMAL) E.U./dL Ur Leukocyte Esterase (NEGATIVE) Urine RBC (0-5) /HPF Urine WBC (0-3) /HPF Ur Squamous Epith Cells (<= Few) Urine Bacteria (None Seen) /HPF Urine Culture Comments Nasal Adenovirus (PCR) Nasal B. parapertussis DNA (PCR) Nasal Coronavir 229E PCR Nasal Coronavir HKU1 PCR Nasal Coronavir NL63 PCR Nasal Coronavir OC43 PCR Nasal Enterovir/Rhinovir PCR Nasal Influenza B PCR Nasal Influenza A PCR Nasal Parainfluen 1 PCR Nasal Parainfluen 2 PCR Nasal Parainfluen 3 PCR Nasal Parainfluen 4 PCR Nasal RSV (PCR) Nasal B.pertussis DNA PCR Nasal C.pneumoniae (PCR) Isreal Human Metapneumo PCR Nasal M.pneumoniae (PCR) Nasal SARS-CoV-2 (PCR) Diagnostic Imaging Diagnostic Imaging Results: positive Final report reviewed Assessment/Plan Problem List (1) UTI (urinary tract infection): Impression: Patient has a history of recurrent pansensitive Proteus UTIs. Patient with a history of BPH Start patient on Rocephin 2/2 blood culture indicated Proteus bacteremia Qualifiers: Hematuria presence: with hematuria Urinary tract infection type: acute cystitis Qualified Code(s): N30.01 - Acute cystitis with hematuria (2) KAYLAH (acute kidney injury): Impression: KAYLAH most likely secondary to sepsis in the background of UTI Versus ATN secondary to hypotension Patient makes adequate amount of urine, creatinine has improved from 3.3-2.7. Patient's baseline is around 1.2. Continue to monitor. Continue IV Fluids. Repeat electrolytes (3) Severe sepsis: Impression: Recurrent UTI with KAYLAH, Now with positive blood cultures. Manage as above. Lactic acidosis has resolved. (4) Leukocytosis: Impression: Resolved (5) Hyponatremia: Impression: Resolved (6) Bacteremia: Impression: 2/2 blood cultures positive for Proteus bacteremia. Repeat blood cultures in 1 days, Follow culture. Continue ABX regimen As above Obtain echo.
[2024-05-06] MEDS ORDERED: LACTULOSE 10 GM /15 ML UDC PO PRN (09:12)
[2024-05-06] MEDS ORDERED: ZINC OXIDE 20% OINT 30 GM TUBE TOP PRN (09:13)
[2024-05-06] MEDS: ASPIRIN EC 81 MG TABLET PO SCH (11:23)
[2024-05-06] MEDS: LEVOTHYROXINE 100 MCG TABLET PO SCH (11:24)
[2024-05-06] MEDS: IPRATROPIUM/ALBUTEROL 3 ML NEB INH SCH (16:32)
[2024-05-06] MEDS: ATORVASTATIN 40 MG TABLET PO SCH (20:20)
[2024-05-06] MEDS: FUROSEMIDE 40 MG/4 ML VIAL IVP SCH (20:21)
[2024-05-07 06:22] LABS: BASOPHILS % (AUTO) 0.1 %; EOSINOPHILS # (AUTO) 0.1 10^3/uL (0.0-0.7); EOSINOPHILS % (AUTO) 0.6 %; HCT - HEMATOCRIT 33.9 % (42.0-52.0); HGB - HEMOGLOBIN 11.7 g/dL (14.0-18.0); LYMPHOCYTES # (AUTO) 0.7 10^3/uL (1.5-3.5); LYMPHOCYTES % (AUTO) 5.5 %; MEAN CORPUSCULAR HEMOGLOBIN 29.7 pg (27.0-31.0); MEAN CORPUSCULAR HGB CONC 34.5 g/dL (32.0-36.0); MEAN PLATELET VOLUME 10.6 fL (7.4-11.4); MONOCYTES # (AUTO) 1.1 10^3/uL (0.0-1.0); MONOCYTES % (AUTO) 8.8 %; NEUTROPHILS # (AUTO) 10.1 10^3/uL (1.5-6.6); NEUTROPHILS % (AUTO) 84.6 %; PLT - PLATELET COUNT 120 10^3/uL (130-450); RED BLOOD COUNT 3.94 10^6/uL (4.70-6.10); RED CELL DISTRIBUTION WIDTH 12.8 % (12.0-15.0); WHITE BLOOD COUNT 11.9 x10^3/uL (4.8-10.8)
[2024-05-07 06:41] LABS: CALCIUM 7.9 mg/dL (8.5-10.3); CREATININE 2.3 mg/dL (0.6-1.3); POTASSIUM 3.3 mmol/L (3.5-4.5)
[2024-05-07] MEDS ORDERED: BACLOFEN 10 MG TABLET PO PRN (09:00)
[2024-05-07] MEDS ORDERED: MULTIVITAMIN PO SCH (09:15)
--- NOTE | 2024-05-07 09:20 | PROVIDER PROGRESS NOTE ---
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 The last 2 days he has been generally weak and cannot transfer and has been bedbound which is not his baseline. He really has no other complaints except for chronic back pain and chronic left leg weakness from the prior stroke. He denies fevers, chills, headache, chest pain, trouble breathing, cough, abdominal pain, changes in bowel movements, or urinary complaints.. Laboratory findings in the ER indicate leukocytosis of 17.8, hyponatremia 131, elevated creatinine of 3.0, baseline around 1.5. Elevated lactate At 2.5. Chest x-ray is negative for any cardiopulmonary processes. Patient received 1 dose of Rocephin I will start her on IV fluids. 05/06/2024: Patient had episodes of hypotension during the nighttime, he was given fluids with albumin. Hypotension has resolved. Patient feels well, has no complaints. 05/16 blood culture indicated Proteus bacteremia. 05/07/2024: Patient states that he is a biit short of breath. Patient was started on Lasix X 2 yesterday. Current Medications Current Medications Current Medications: Current Medications Generic Name Dose Route Start Last Admin Trade Name Freq PRN Reason Stop Dose Admin Acetaminophen 650 mg 05/05/24 14:14 05/06/24 13:46 Acetaminophen 325 Mg Tablet PO 650 mg Q4HR PRN Administration Pain 1 to 4, or Fever Albuterol/Ipratropium 3 ml 05/06/24 14:26 05/07/24 07:52 Ipratropium/Albuterol 3 Ml Neb INH 3 ml RTQ4H ANNABELLE Administration Aspirin 81 mg 05/06/24 10:00 05/07/24 08:48 Aspirin Ec 81 Mg Tablet PO 81 mg DAILY ANNABELLE Administration Atorvastatin Calcium 40 mg 05/06/24 21:00 05/06/24 20:20 Atorvastatin 40 Mg Tablet PO 40 mg HS ANNABELLE Administration Baclofen 10 mg 05/07/24 09:00 Baclofen 10 Mg Tablet PO DAILY PRN MUSCLE SPASMS Heparin Sodium (Porcine) 5,000 unit 05/05/24 14:14 05/07/24 08:48 Heparin 5,000 Unit/Ml Vial SUBQ 5,000 unit BID ANNABELLE Administration Ceftriaxone Sodium 2 gm/ 100 mls @ 200 mls/hr 05/06/24 09:00 05/07/24 08:49 Sodium Chloride IV 200 mls/hr DAILY ANNABELLE Administration Lactulose 10 gm 05/06/24 09:12 Lactulose 10 Gm /15 Ml Udc PO BID PRN Constipation Levothyroxine Sodium 200 mcg 05/06/24 10:00 05/07/24 08:48 Levothyroxine 100 Mcg Tablet PO 200 mcg DAILY ANNABELLE Administration Meclizine HCl 25 mg 05/06/24 09:08 Meclizine 12.5 Mg Tablet PO BID PRN nausea Multi-Ingredient Ointment 1 applic 05/06/24 09:13 Zinc Oxide 20% Oint 30 Gm Tube TOP PRN PRN Skin Care Non-Formulary Medication 1 tab 05/07/24 09:15 Multivit With Min-Folic Acid [Adult One Daily Multivitamin] PO DAILY [facility] Non-Formulary Medication 1 each 05/07/24 09:15 Multivitamin PO DAILY [facility] Non-Formulary Medication 10 meq 05/07/24 09:15 Potassium Chloride PO BID [facility] Ondansetron HCl 4 mg 05/05/24 14:14 Ondansetron Odt 4 Mg Tablet TL Q6HR PRN Nausea / Vomiting Oxycodone HCl 5 mg 05/05/24 14:14 Oxycodone 5 Mg Tablet PO Q4HR PRN Pain 5 to 7 Sodium Chloride 10 ml 05/05/24 14:14 Sodium Chloride Flush 0.9% 10 Ml Syringe IVP PRN PRN NEEDED PER PROVIDER ORDERS Sodium Chloride 10 ml 05/05/24 17:00 05/07/24 08:49 Sodium Chloride Flush 0.9% 10 Ml Syringe IVP 10 ml 0100,0900,1700 ANNABELLE Administration Objective Vital Signs/Intake & Output Reviewed Vital Signs: Yes Vital Signs: Vital Signs x48h Temp Pulse Pulse Resp BP Pulse Ox O2 Flow Rate 05/07/24 07:56 36.9 C 89 20 143/70 H 97 0 05/07/24 07:53 90 20 Intake & Output: Intake & Output 05/04/24 05/05/24 05/06/24 05/07/24 23:59 23:59 23:59 23:59 Intake Total 3878 / 3878 4420 / 4420 280 / 280 Output Total 150 / 150 2325 / 2325 2175 / 2175 Balance 3728 / 3728 2095 / 209 -1895 / -189 Weight (kg) 118.5 kg Objective General Appearance: positive No acute distress and Alert Eyes Bilateral: positive Normal inspection and PERRL ENT: positive ENT inspection nml Neck: positive Nml inspection and Trachea midline Respiratory: positive Chest non-tender and No respiratory distress Cardiovascular: positive Regular rate & rhythm and No murmur Abdomen: positive Non-tender and No organomegaly Skin: positive Color nml and No rash Extremities: positive Non-tender and Other (Left-sided lower extremity deficits secondary to right CVA in the past) Neurologic/Psychiatric: positive Oriented x3 and CN's nml (2-12) Lab Results 05/07/24 06:08 05/07/24 06:08 Other Labs: Lab Results x24hrs 05/07/24 Range/Units 06:08 WBC 11.9 H (4.8-10.8) x10^3/uL RBC 3.94 L (4.70-6.10) 10^6/uL Hgb 11.7 L (14.0-18.0) g/dL Hct 33.9 L (42.0-52.0) % MCV 86.0 (80.0-94.0) fL MCH 29.7 (27.0-31.0) pg MCHC 34.5 (32.0-36.0) g/dL RDW 12.8 (12.0-15.0) % Plt Count 120 L (130-450) 10^3/uL MPV 10.6 (7.4-11.4) fL Neut # (Auto) 10.1 H (1.5-6.6) 10^3/uL Lymph # (Auto) 0.7 L (1.5-3.5) 10^3/uL [place] # (Auto) 1.1 H (0.0-1.0) 10^3/uL Eos # (Auto) 0.1 (0.0-0.7) 10^3/uL Baso # (Auto) 0.0 (0.0-0.1) 10^3/uL Absolute Nucleated RBC 0.00 x10^3/uL Nucleated RBC % 0.0 /100WBC Sodium 139 (135-145) mmol/L Potassium 3.3 L (3.5-4.5) mmol/L Chloride 112 H (101-111) mmol/L Carbon Dioxide 21 (21-32) mmol/L Anion Gap 6.0 (6-13) BUN 42 H (6-20) mg/dL Creatinine 2.3 H (0.6-1.3) mg/dL Estimated GFR (MDRD) 28 L (>89) Glucose 138 H (74-104) mg/dL Calcium 7.9 L (8.5-10.3) mg/dL Diagnostic Imaging Diagnostic Imaging Results: positive Final report reviewed Assessment/Plan Problem List (1) UTI (urinary tract infection): Impression: Patient has a history of recurrent pansensitive Proteus UTIs. Patient with a history of BPH Continue patient on Rocephin, anticipated discharge tomorrow with oral antibiotics if Repeat blood cultures are negative Qualifiers: Hematuria presence: with hematuria Urinary tract infection type: acute cystitis Qualified Code(s): N30.01 - Acute cystitis with hematuria (2) KAYLAH (acute kidney injury): Impression: KAYLAH most likely secondary to sepsis in the background of UTI Versus ATN secondary to hypotension Patient makes adequate amount of urine, creatinine has improved from 3.3 - 2.7 - 2.3. Patient's baseline is around 1.2. Continue to monitor. Stop IV fluids secondary to Pulmonary fluid overload. Replace electrolytes (3) Severe sepsis: Impression: Recurrent UTI with KAYLAH, Now with positive blood cultures. Follow repeat blood cultures for resolution of bacteremia Manage as above. Lactic acidosis has resolved. (4) Leukocytosis: Impression: Resolved (5) Hyponatremia: Impression: Resolved (6) Bacteremia: Impression: 2/2 blood cultures positive for Proteus bacteremia. Follow-up repeat blood cultures resolution of bacteremia. Echocardiogram indicates EF of 55 to 60%. No apparent mass or vegetation noted. Continue ABX regimen As above
[2024-05-07] MEDS: MULTIVITAMIN W/MINERALS TABLET PO SCH (11:54)
[2024-05-07] MEDS: POTASSIUM CHLORIDE 10 MEQ CAPSULE PO SCH (20:42)
[2024-05-08] MEDS: oxyCODONE 5 MG TABLET PO PRN (02:49)
[2024-05-08 06:04] LABS: BASOPHILS % (AUTO) 0.3 %; EOSINOPHILS # (AUTO) 0.1 10^3/uL (0.0-0.7); HGB - HEMOGLOBIN 11.7 g/dL (14.0-18.0); LYMPHOCYTES # (AUTO) 0.8 10^3/uL (1.5-3.5); LYMPHOCYTES % (AUTO) 6.9 %; MEAN CORPUSCULAR HEMOGLOBIN 28.8 pg (27.0-31.0); MEAN CORPUSCULAR HGB CONC 33.4 g/dL (32.0-36.0); MEAN CORPUSCULAR VOLUME 86.2 fL (80.0-94.0); MEAN PLATELET VOLUME 10.7 fL (7.4-11.4); MONOCYTES % (AUTO) 8.9 %; NEUTROPHILS # (AUTO) 8.9 10^3/uL (1.5-6.6); NEUTROPHILS % (AUTO) 82.4 %; PLT - PLATELET COUNT 141 10^3/uL (130-450); RED BLOOD COUNT 4.06 10^6/uL (4.70-6.10); RED CELL DISTRIBUTION WIDTH 12.9 % (12.0-15.0); WHITE BLOOD COUNT 10.8 x10^3/uL (4.8-10.8)
[2024-05-08 06:15] LABS: CALCIUM 8.1 mg/dL (8.5-10.3); CREATININE 2.3 mg/dL (0.6-1.3); POTASSIUM 3.3 mmol/L (3.5-4.5)
[2024-05-08] MEDS ORDERED: IPRATROPIUM/ALBUTEROL 3 ML NEB INH PRN (09:15)
--- NOTE | 2024-05-08 13:01 | PROVIDER PROGRESS NOTE ---
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 The last 2 days he has been generally weak and cannot transfer and has been bedbound which is not his baseline. He really has no other complaints except for chronic back pain and chronic left leg weakness from the prior stroke. He denies fevers, chills, headache, chest pain, trouble breathing, cough, abdominal pain, changes in bowel movements, or urinary complaints.. Laboratory findings in the ER indicate leukocytosis of 17.8, hyponatremia 131, elevated creatinine of 3.0, baseline around 1.5. Elevated lactate At 2.5. Chest x-ray is negative for any cardiopulmonary processes. Patient received 1 dose of Rocephin I will start her on IV fluids. 05/06/2024: Patient had episodes of hypotension during the nighttime, he was given fluids with albumin. Hypotension has resolved. Patient feels well, has no complaints. 05/16 blood culture indicated Proteus bacteremia. 05/07/2024: Patient states that he is a biit short of breath. Patient was started on Lasix X 2 yesterday. 05/08/2024: Patient states that he is doing feeling well, has no complaints. No respiratory issues. Patient asked when he can go home. Current Medications Current Medications Current Medications: Current Medications Generic Name Dose Route Start Last Admin Trade Name Freq PRN Reason Stop Dose Admin Acetaminophen 650 mg 05/05/24 14:14 05/06/24 13:46 Acetaminophen 325 Mg Tablet PO 650 mg Q4HR PRN Administration Pain 1 to 4, or Fever Albuterol/Ipratropium 3 ml 05/08/24 09:15 Ipratropium/Albuterol 3 Ml Neb INH RTQ4H PRN Wheezing Aspirin 81 mg 05/06/24 10:00 05/08/24 08:43 Aspirin Ec 81 Mg Tablet PO 81 mg DAILY ANNABELLE Administration Atorvastatin Calcium 40 mg 05/06/24 21:00 05/07/24 20:42 Atorvastatin 40 Mg Tablet PO 40 mg HS ANNABELLE Administration Baclofen 10 mg 05/07/24 09:00 Baclofen 10 Mg Tablet PO DAILY PRN MUSCLE SPASMS Heparin Sodium (Porcine) 5,000 unit 05/05/24 14:14 05/08/24 08:44 Heparin 5,000 Unit/Ml Vial SUBQ 5,000 unit BID ANNABELLE Administration Ceftriaxone Sodium 2 gm/ 100 mls @ 200 mls/hr 05/06/24 09:00 05/08/24 09:35 Sodium Chloride IV 200 mls/hr DAILY ANNABELLE Infusion Lactulose 10 gm 05/06/24 09:12 Lactulose 10 Gm /15 Ml Udc PO BID PRN Constipation Levothyroxine Sodium 200 mcg 05/06/24 10:00 05/08/24 08:43 Levothyroxine 100 Mcg Tablet PO 200 mcg DAILY ANNABELLE Administration Meclizine HCl 25 mg 05/06/24 09:08 Meclizine 12.5 Mg Tablet PO BID PRN nausea Multi-Ingredient Ointment 1 applic 05/06/24 09:13 Zinc Oxide 20% Oint 30 Gm Tube TOP PRN PRN Skin Care Multivitamins/Minerals 1 tab 05/07/24 09:15 05/08/24 08:42 Multivitamin W/Minerals Tablet PO 1 tab DAILYWM ANNABELLE Administration Ondansetron HCl 4 mg 05/05/24 14:14 Ondansetron Odt 4 Mg Tablet TL Q6HR PRN Nausea / Vomiting Oxycodone HCl 5 mg 05/05/24 14:14 05/08/24 02:49 Oxycodone 5 Mg Tablet PO 5 mg Q4HR PRN Administration Pain 5 to 7 Potassium Chloride 10 meq 05/07/24 21:00 05/08/24 08:43 Potassium Chloride 10 Meq Capsule PO 10 meq BID ANNABELLE Administration Sodium Chloride 10 ml 05/05/24 14:14 Sodium Chloride Flush 0.9% 10 Ml Syringe IVP PRN PRN NEEDED PER PROVIDER ORDERS Sodium Chloride 10 ml 05/05/24 17:00 05/08/24 08:45 Sodium Chloride Flush 0.9% 10 Ml Syringe IVP 10 ml 0100,[id number],1700 ANNABELLE Administration Objective Vital Signs/Intake & Output Reviewed Vital Signs: Yes Vital Signs: Vital Signs x48h Temp Pulse Pulse Resp BP Pulse Ox 05/08/24 08:50 90 18 05/08/24 07:19 36.7 C 91 16 150/79 H 93 Intake & Output: Intake & Output 05/05/24 05/06/24 05/07/24 05/08/24 23:59 23:59 23:59 23:59 Intake Total 3878 / 3878 4420 / 4420 1620 / 1620 570 / 570 Output Total 150 / 150 2325 / 2325 5425 / 5425 2150 / 2150 Balance 3728 / 3728 2095 / 2095 -3805 / -3805 -1580 / -1580 Weight (kg) 118.5 kg Objective General Appearance: positive No acute distress and Alert Eyes Bilateral: positive Normal inspection and PERRL ENT: positive ENT inspection nml Neck: positive Nml inspection and Trachea midline Respiratory: positive Chest non-tender and No respiratory distress Cardiovascular: positive Regular rate & rhythm and No murmur Abdomen: positive Non-tender and No organomegaly Skin: positive Color nml and No rash Extremities: positive Non-tender and Other (Left-sided lower extremity deficits secondary to right CVA in the past) Neurologic/Psychiatric: positive Oriented x3 and CN's nml (2-12) Lab Results 05/08/24 05:33 05/08/24 05:33 Other Labs: Lab Results x24hrs 05/08/24 Range/Units 05:33 WBC 10.8 (4.8-10.8) x10^3/uL RBC 4.06 L (4.70-6.10) 10^6/uL Hgb 11.7 L (14.0-18.0) g/dL Hct 35.0 L (42.0-52.0) % MCV 86.2 (80.0-94.0) fL MCH 28.8 (27.0-31.0) pg MCHC 33.4 (32.0-36.0) g/dL RDW 12.9 (12.0-15.0) % Plt Count 141 (130-450) 10^3/uL MPV 10.7 (7.4-11.4) fL Neut # (Auto) 8.9 H (1.5-6.6) 10^3/uL Lymph # (Auto) 0.8 L (1.5-3.5) 10^3/uL [place] # (Auto) 1.0 (0.0-1.0) 10^3/uL Eos # (Auto) 0.1 (0.0-0.7) 10^3/uL Baso # (Auto) 0.0 (0.0-0.1) 10^3/uL Absolute Nucleated RBC 0.00 x10^3/uL Nucleated RBC % 0.0 /100WBC Sodium 137 (135-145) mmol/L Potassium 3.3 L (3.5-4.5) mmol/L Chloride 107 (101-111) mmol/L Carbon Dioxide 23 (21-32) mmol/L Anion Gap 7.0 (6-13) BUN 36 H (6-20) mg/dL Creatinine 2.3 H (0.6-1.3) mg/dL Estimated GFR (MDRD) 28 L (>89) Glucose 143 H (74-104) mg/dL Calcium 8.1 L (8.5-10.3) mg/dL Diagnostic Imaging Diagnostic Imaging Results: positive Final report reviewed Assessment/Plan Problem List (1) UTI (urinary tract infection): Impression: Patient has a history of recurrent pansensitive Proteus UTIs. Patient with a history of BPH Continue patient on IV Rocephin 07/17 Qualifiers: Hematuria presence: with hematuria Urinary tract infection type: acute cystitis Qualified Code(s): N30.01 - Acute cystitis with hematuria (2) KAYLAH (acute kidney injury): Impression: KAYLAH most likely secondary to sepsis in the background of UTI Versus ATN secondary to hypotension Patient makes adequate amount of urine, creatinine has improved from 3.3 - 2.7 - 2.3 And remains stable at 2.3. Patient's baseline was around 1.2 On 04/02/2020. Continue to monitor. Replace electrolytes as needed (3) Severe sepsis: Impression: resolved Recurrent UTI with KAYLAH, Now with positive blood cultures. Follow repeat blood cultures for resolution of bacteremia Manage as above. Lactic acidosis has resolved. (4) Leukocytosis: Impression: Resolved (5) Hyponatremia: Impression: Resolved (6) Bacteremia: Impression: 2/2 blood cultures positive for Proteus bacteremia. Follow-up repeat blood cultures 05/07/2024 are negative sofar. Continue IV rocephin 07/16. Echocardiogram indicates EF of 55 to 60%. No apparent mass or vegetation noted. (7) Hypertension: Impression: Resume home medication metoprolol, Flomax
[2024-05-08] MEDS: POTASSIUM CHLORIDE 20 MEQ TABLET PO SCH (14:30)
[2024-05-08] MEDS: METOPROLOL TARTRATE 25 MG TABLET PO SCH (21:09)
[2024-05-09 05:25] LABS: BASOPHILS % (AUTO) 0.4 %; EOSINOPHILS # (AUTO) 0.3 10^3/uL (0.0-0.7); EOSINOPHILS % (AUTO) 3.5 %; HCT - HEMATOCRIT 36.1 % (42.0-52.0); HGB - HEMOGLOBIN 12.4 g/dL (14.0-18.0); LYMPHOCYTES % (AUTO) 10.4 %; MEAN CORPUSCULAR HEMOGLOBIN 29.7 pg (27.0-31.0); MEAN CORPUSCULAR HGB CONC 34.3 g/dL (32.0-36.0); MEAN CORPUSCULAR VOLUME 86.6 fL (80.0-94.0); MEAN PLATELET VOLUME 10.5 fL (7.4-11.4); MONOCYTES # (AUTO) 0.7 10^3/uL (0.0-1.0); MONOCYTES % (AUTO) 7.3 %; NEUTROPHILS # (AUTO) 7.4 10^3/uL (1.5-6.6); NEUTROPHILS % (AUTO) 77.1 %; PLT - PLATELET COUNT 162 10^3/uL (130-450); RED BLOOD COUNT 4.17 10^6/uL (4.70-6.10); RED CELL DISTRIBUTION WIDTH 13.1 % (12.0-15.0); WHITE BLOOD COUNT 9.5 x10^3/uL (4.8-10.8)
[2024-05-09 05:40] LABS: CALCIUM 8.5 mg/dL (8.5-10.3); CREATININE 2.1 mg/dL (0.6-1.3); POTASSIUM 3.8 mmol/L (3.5-4.5)
[2024-05-09] MEDS: TAMSULOSIN 0.4 MG CAPSULE PO SCH (08:26)
--- NOTE | 2024-05-09 09:00 | PROVIDER PROGRESS NOTE ---
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 The last 2 days he has been generally weak and cannot transfer and has been bedbound which is not his baseline. He really has no other complaints except for chronic back pain and chronic left leg weakness from the prior stroke. He denies fevers, chills, headache, chest pain, trouble breathing, cough, abdominal pain, changes in bowel movements, or urinary complaints.. Laboratory findings in the ER indicate leukocytosis of 17.8, hyponatremia 131, elevated creatinine of 3.0, baseline around 1.5. Elevated lactate At 2.5. Chest x-ray is negative for any cardiopulmonary processes. Patient received 1 dose of Rocephin I will start her on IV fluids. 05/06/2024: Patient had episodes of hypotension during the nighttime, he was given fluids with albumin. Hypotension has resolved. Patient feels well, has no complaints. 05/16 blood culture indicated Proteus bacteremia. 05/07/2024: Patient states that he is a biit short of breath. Patient was started on Lasix X 2 yesterday. 05/08/2024: Patient states that he is doing feeling well, has no complaints. No respiratory issues. Patient asked when he can go home. 05/09/2024: Patient has no complaints. Patient is planned for discharge tomorrow With wheelchair assisted ambulance Patient continues to be remain in the hospital due to lack of wheelchair assisted transportation today. Current Medications Current Medications Current Medications: Current Medications Generic Name Dose Route Start Last Admin Trade Name Freq PRN Reason Stop Dose Admin Acetaminophen 650 mg 05/05/24 14:14 05/09/24 06:09 Acetaminophen 325 Mg Tablet PO 650 mg Q4HR PRN Administration Pain 1 to 4, or Fever Albuterol/Ipratropium 3 ml 05/08/24 09:15 Ipratropium/Albuterol 3 Ml Neb INH RTQ4H PRN Wheezing Aspirin 81 mg 05/06/24 10:00 05/09/24 08:26 Aspirin Ec 81 Mg Tablet PO 81 mg DAILY ANNABELLE Administration Atorvastatin Calcium 40 mg 05/06/24 21:00 05/08/24 21:09 Atorvastatin 40 Mg Tablet PO 40 mg HS ANNABELLE Administration Baclofen 10 mg 05/07/24 09:00 Baclofen 10 Mg Tablet PO DAILY PRN MUSCLE SPASMS Heparin Sodium (Porcine) 5,000 unit 05/05/24 14:14 05/09/24 08:35 Heparin 5,000 Unit/Ml Vial SUBQ 5,000 unit BID ANNABELLE Administration Ceftriaxone Sodium 2 gm/ 100 mls @ 200 mls/hr 05/06/24 09:00 05/09/24 08:30 Sodium Chloride IV 200 mls/hr DAILY ANNABELLE Administration Lactulose 10 gm 05/06/24 09:12 Lactulose 10 Gm /15 Ml Udc PO BID PRN Constipation Levothyroxine Sodium 200 mcg 05/06/24 10:00 05/09/24 08:36 Levothyroxine 100 Mcg Tablet PO 200 mcg DAILY ANNABELLE Administration Meclizine HCl 25 mg 05/06/24 09:08 Meclizine 12.5 Mg Tablet PO BID PRN nausea Metoprolol Tartrate 25 mg 05/08/24 21:00 05/09/24 08:25 Metoprolol Tartrate 25 Mg Tablet PO 25 mg BID ANNABELLE Administration Multi-Ingredient Ointment 1 applic 05/06/24 09:13 Zinc Oxide 20% Oint 30 Gm Tube TOP PRN PRN Skin Care Multivitamins/Minerals 1 tab 05/07/24 09:15 05/09/24 08:25 Multivitamin W/Minerals Tablet PO 1 tab DAILYWM ANNABELLE Administration Ondansetron HCl 4 mg 05/05/24 14:14 Ondansetron Odt 4 Mg Tablet TL Q6HR PRN Nausea / Vomiting Oxycodone HCl 5 mg 05/05/24 14:14 05/08/24 02:49 Oxycodone 5 Mg Tablet PO 5 mg Q4HR PRN Administration Pain 5 to 7 Potassium Chloride 20 meq 05/08/24 14:00 05/09/24 08:26 Potassium Chloride 20 Meq Tablet PO 20 meq DAILYWM ANNABELLE Administration Sodium Chloride 10 ml 05/05/24 14:14 Sodium Chloride Flush 0.9% 10 Ml Syringe IVP PRN PRN NEEDED PER PROVIDER ORDERS Sodium Chloride 10 ml 05/05/24 17:00 05/09/24 08:25 Sodium Chloride Flush 0.9% 10 Ml Syringe IVP 10 ml 0100,0900,1700 ANNABELLE Administration Tamsulosin HCl 0.4 mg 05/09/24 09:00 05/09/24 08:26 Tamsulosin 0.4 Mg Capsule PO 0.4 mg DAILY ANNABELLE Administration Objective Vital Signs/Intake & Output Reviewed Vital Signs: Yes Vital Signs: Vital Signs x48h Temp Pulse Pulse Resp BP BP Pulse Ox 05/09/24 08:25 78 137/71 H 05/09/24 07:42 36.2 C L 78 20 137/71 H 93 Intake & Output: Intake & Output 05/06/24 05/07/24 05/08/24 05/09/24 23:59 23:59 23:59 23:59 Intake Total 4420 / 4420 1620 / 1620 1969 / 1969 420 / 420 Output Total 2325 / 2325 5425 / 5425 2800 / 2800 850 / 850 Balance 5 / 2094 -3805 / -3805 -830 / -830 -430 / -430 Objective General Appearance: positive No acute distress and Alert Eyes Bilateral: positive Normal inspection and PERRL ENT: positive ENT inspection nml Neck: positive Nml inspection and Trachea midline Respiratory: positive Chest non-tender and No respiratory distress Cardiovascular: positive Regular rate & rhythm and No murmur Abdomen: positive Non-tender and No organomegaly Skin: positive Color nml and No rash Extremities: positive Non-tender and Other (Left-sided lower extremity deficits secondary to right CVA in the past) Neurologic/Psychiatric: positive Oriented x3 and CN's nml (2-12) Lab Results 05/09/24 05:05 05/09/24 05:05 Other Labs: Lab Results x24hrs 05/09/24 Range/Units 05:05 WBC 9.5 (4.8-10.8) x10^3/uL RBC 4.17 L (4.70-6.10) 10^6/uL Hgb 12.4 L (14.0-18.0) g/dL Hct 36.1 L (42.0-52.0) % MCV 86.6 (80.0-94.0) fL MCH 29.7 (27.0-31.0) pg MCHC 34.3 (32.0-36.0) g/dL RDW 13.1 (12.0-15.0) % Plt Count 162 (130-450) 10^3/uL MPV 10.5 (7.4-11.4) fL Neut # (Auto) 7.4 H (1.5-6.6) 10^3/uL Lymph # (Auto) 1.0 L (1.5-3.5) 10^3/uL [place] # (Auto) 0.7 (0.0-1.0) 10^3/uL Eos # (Auto) 0.3 (0.0-0.7) 10^3/uL Baso # (Auto) 0.0 (0.0-0.1) 10^3/uL Absolute Nucleated RBC 0.00 x10^3/uL Nucleated RBC % 0.0 /100WBC Sodium 137 (135-145) mmol/L Potassium 3.8 (3.5-4.5) mmol/L Chloride 107 (101-111) mmol/L Carbon Dioxide 25 (21-32) mmol/L Anion Gap 5.0 L (6-13) BUN 33 H (6-20) mg/dL Creatinine 2.1 H (0.6-1.3) mg/dL Estimated GFR (MDRD) 31 L (>89) Glucose 129 H (74-104) mg/dL Calcium 8.5 (8.5-10.3) mg/dL Diagnostic Imaging Diagnostic Imaging Results: positive Final report reviewed Assessment/Plan Problem List (1) UTI (urinary tract infection): Impression: Patient has a history of recurrent pansensitive Proteus UTIs. Patient with a history of BPH Continue patient on IV Rocephin 6 Qualifiers: Hematuria presence: with hematuria Urinary tract infection type: acute cystitis Qualified Code(s): N30.01 - Acute cystitis with hematuria (2) KAYLAH (acute kidney injury): Impression: KAYLAH most likely secondary to sepsis in the background of UTI Versus ATN secondary to hypotension Patient makes adequate amount of urine, creatinine Continues to improve from 3.3 - 2.7 - 2.3 - 2.1. Patient's baseline was around 1.2 On 04/02/2020. Continue to monitor. Replace electrolytes as needed (3) Severe sepsis: Impression: resolved Recurrent UTI with KAYLAH, Now with positive blood cultures. Follow repeat blood cultures for resolution of bacteremia Manage as above. Lactic acidosis has resolved. (4) Leukocytosis: Impression: Resolved (5) Hyponatremia: Impression: Resolved (6) Bacteremia: Impression: 2/2 blood cultures positive for Proteus bacteremia. Follow-up repeat blood cultures 05/07/2024 are negative sofar. Continue IV rocephin 6, Likely discharge patient on oral medication to complete a 10-day ABX course tomorrow Echocardiogram indicates EF of 55 to 60%. No apparent mass or vegetation noted. (7) Hypertension: Impression: Resume home medication metoprolol, Flomax
--- NOTE | 2024-05-09 11:45 | Discharge Summary ---
Discharge Summary Admit Date: 05/05/24 Discharge Date: 05/10/24 Discharging Provider: mattie DIAGNOSES Admission Diagnoses: Severe sepsis secondary to UTI Recurrent UTI with pansensitive Proteus Proteus bacteremia KAYLAH Hyponatremia Hypertension Discharge Diagnoses with Status of Each Condition: Severe sepsis secondary to UTI - Resolved Recurrent UTI with pansensitive Proteus - Resolved Proteus bacteremia - Resolved, complete 10-day ABX with oral ABX at home KAYLAH - Improved Hyponatremia - Resolved Hypertension - Chronic, on Home medications HPI History of Present Illness: This is a 74-year-old male with a past medical history of 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 The last 2 days he has been generally weak and cannot transfer and has been bedbound which is not his baseline. He really has no other complaints except for chronic back pain and chronic left leg weakness from the prior stroke. He denies fevers, chills, headache, chest pain, trouble breathing, cough, abdominal pain, changes in bowel movements, or urinary complaints.. Laboratory findings in the ER indicate leukocytosis of 17.8, hyponatremia 131, elevated creatinine of 3.0, baseline around 1.5. Elevated lactate At 2.5. Chest x-ray is negative for any cardiopulmonary processes. Patient received 1 dose of Rocephin I will start her on IV fluids. 05/06/2024: Patient had episodes of hypotension during the nighttime, he was given fluids with albumin. Hypotension has resolved. Patient feels well, has no complaints. 2/2 blood culture indicated Proteus bacteremia. 05/07/2024: Patient states that he is a biit short of breath. Patient was started on Lasix X 2 yesterday. 05/08/2024: Patient states that he is doing feeling well, has no complaints. No respiratory issues. Patient asked when he can go home. 05/09/2024: Patient has no complaints. Patient is planned for discharge tomorrow With wheelchair assisted ambulance Patient continues to be remain in the hospital due to lack of wheelchair assisted transportation today. HOSPITAL COURSE Hospital Course: Patient is a admitted for severe sepsis secondary to UTI. Patient is a history of recurrent UTIs with Proteus. UA grew out pansensitive Proteus 2/2 Blood cultures were also positive for Proteus. Patient was started on IV Rocephin ABX regimen. Repeat blood cultures were negative. Echo indicated no Vegetations. Patient had acute renal failure secondary to like secondary to severe sepsis. Creatinine continued to improve during the hospital stay. Patient continued to make good amount of urine. Patient was advised to follow-up with primary care physician for a chemistry panel within 10 days. Patient is discharged home in stable condition. ALLERGIES Allergies Allergy/AdvReac Type Severity Reaction Status Date / Time No Known Drug Allergies Allergy Verified 05/05/24 08:52 MEDICATIONS Ambulatory Orders Medication Instructions Recorded Confirmed aspirin 81 mg tablet,delayed 81 mg PO DAILY 06/08/13 05/05/24 release (Aspir-) baclofen 10 mg tablet 10 mg PO DAILY 06/08/13 05/05/24 metoprolol tartrate 25 mg tablet 25 mg PO BID 06/08/13 05/05/24 levothyroxine 200 mcg capsule 200 mcg PO DAILY 03/30/20 05/05/24 multivitamin with minerals-folic 1 tab PO DAILY 03/30/20 05/05/24 acid 0.4 mg tablet (Adult One Daily Multivitamin) lactulose 10 gram/15 mL oral 10 g (15 mL) PO BID PRN 06/27/23 05/05/24 solution Constipation #300 mL multivitamin 1 ea PO DAILY 11/04/23 05/05/24 tamsulosin 0.4 mg capsule 0.4 mg PO DAILY 11/04/23 05/05/24 acetaminophen 500 mg tablet 500 mg PO Q4-6H PRN pain 05/05/24 05/05/24 atorvastatin 40 mg tablet 40 mg PO HS 05/05/24 05/05/24 meclizine 25 mg tablet 25 mg PO BID PRN nausea 05/05/24 05/05/24 potassium chloride 10 mEq 10 meq PO BID 05/05/24 05/05/24 tablet,extended release amoxicillin 500 mg-potassium 1 tab PO BID #8 tabs 05/09/24 clavulanate 125 mg tablet (Augmentin) PHYSICAL EXAM AT DISCHARGE General Appearance: positive No acute distress and Alert Eyes Bilateral: positive Normal inspection and PERRL ENT: positive ENT inspection nml and Pharynx nml Neck: positive Nml inspection and Trachea midline Respiratory: positive Chest non-tender and No respiratory distress Cardiovascular: positive Regular rate & rhythm and No murmur Abdomen: positive Non-tender and No organomegaly Skin: positive Color nml and No rash Extremities: positive Non-tender and Other (Left lower extremity deficits secondary to right CVA in the past) Neurologic/Psychiatric: positive Oriented x3, CN's nml (2-12) and Mood/affect nml LABS 05/10/24 06:36 05/10/24 05:26 DIAGNOSTIC IMAGING Diagnostic Imaging Results: Final report reviewed FOLLOW UP Follow Up: Recommend follow-up with primary care physician within 10 days for chemistry panel TIME SPENT Time Spent in Discharge (Minutes): 35 Discharge Plan Discharge Patient Disposition: Home, Self Care Condition: Serious Prescriptions: New amoxicillin-pot clavulanate [Augmentin] 500-125 mg tablet 1 tab PO BID Qty: 8 0RF Continued aspirin [Aspir-81] 81 MG tablet,delayed release (DR/EC) 81 mg PO DAILY baclofen 10 MG tablet 10 mg PO DAILY metoprolol tartrate 25 MG tablet 25 mg PO BID multivit with min-folic acid [Adult One Daily Multivitamin] 0.4 MG tablet 1 tab PO DAILY levothyroxine 200 MCG capsule 200 mcg PO DAILY lactulose 10 GM/15 ML solution 10 g PO BID PRN (Reason: Constipation) Qty: 300 0RF multivitamin 1 EACH tablet 1 ea PO DAILY tamsulosin 0.4 MG capsule 0.4 mg PO DAILY Patient Comments: take 1 capsule by mouth once daily acetaminophen 500 mg tablet 500 mg PO Q4-6H PRN (Reason: pain) meclizine 25 mg tablet 25 mg PO BID PRN (Reason: nausea) potassium chloride 10 mEq tablet extended release 10 meq PO BID Patient Comments: take 1 tablet by mouth twice a day atorvastatin 40 mg tablet 40 mg PO HS Patient Comments: take 1 tablet by mouth at bedtime Health Concerns: You are admitted for severe sepsis secondary to urinary tract infection. Your urine grew out Proteus bacteria. Your blood cultures also grew Proteus. You were treated with IV antibiotics Rocephin. Repeat blood cultures were negative and an echocardiogram did not show any bacterial growth on your valves. You will complete your antibiotics with Augmentin for 4 more days for total of 10 days. Due to sepsis, hypotension you were in acute renal failure. You continued to make good amount of urine and your creatinine improved. Please follow-up with your primary care physician for a chemistry panel within 7 to 10 days. Please take Augmentin twice daily with food for 4 days. Print Language: Nauruan Patient Instructions: Injury Acute Kidney Dc, Sepsis Stand Alone Forms: PCP List Follow-up Care: Viji Knight MD [Primary Care Provider] -
[2024-05-10 06:37] LABS: CALCIUM 8.7 mg/dL (8.5-10.3); CREATININE 1.6 mg/dL (0.6-1.3); POTASSIUM 4.4 mmol/L (3.5-4.5)
[2024-05-10 06:54] LABS: BASOPHILS % (AUTO) 0.3 %; EOSINOPHILS % (AUTO) 2.5 %; HGB - HEMOGLOBIN 12.3 g/dL (14.0-18.0); LYMPHOCYTES % (AUTO) 8.5 %; MEAN CORPUSCULAR HEMOGLOBIN 29.4 pg (27.0-31.0); MEAN CORPUSCULAR HGB CONC 33.2 g/dL (32.0-36.0); MEAN CORPUSCULAR VOLUME 88.5 fL (80.0-94.0); MONOCYTES % (AUTO) 8.3 %; NEUTROPHILS % (AUTO) 78.4 %; PLT - PLATELET COUNT 194 10^3/uL (130-450); RED BLOOD COUNT 4.18 10^6/uL (4.70-6.10); RED CELL DISTRIBUTION WIDTH 13.3 % (12.0-15.0); WHITE BLOOD COUNT 12.2 x10^3/uL (4.8-10.8)
[2024-05-10 07:23] LABS: ABNORMAL LYMPHS % (MANUAL) 1 %; BAND NEUTROPHILS % (MANUAL) 4 %; DIFFERENTIAL COMMENT MANUAL DIFFERENTIAL; EOSINOPHILS # (MANUAL) 0.4 10^3/uL (0-0.7); LYMPHOCYTES # (MANUAL) 0.9 10^3/uL (1.5-3.5); LYMPHOCYTES % (MANUAL) 6 %; METAMYELOCYTES % (MANUAL) 2 %; MONOCYTES # (MANUAL) 0.6 10^3/uL (0.0-1.0); MYELOCYTES % (MANUAL) 2 %; NEUTROPHILS # (MANUAL) 9.9 10^3/uL (1.5-6.6); PLATELET ESTIMATE, MANUAL NORMAL (130-450,000) (NORMAL); PLATELET MORPHOLOGY NORMAL APPEARANCE (NORMAL); RBC MORPHOLOGY (MULTIPLE) NORMAL APPEARANCE (NORMAL); WBC MORPHOLOGY (MULTIPLE) NORMAL APPEARANCE (NORMAL)
[2024-05-10 07:24] LABS: SLIDE SENT FOR PATH REVIEW? Indicated
--- NOTE | 2024-05-10 11:10 | PROVIDER PROGRESS NOTE ---
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 The last 2 days he has been generally weak and cannot transfer and has been bedbound which is not his baseline. He really has no other complaints except for chronic back pain and chronic left leg weakness from the prior stroke. He denies fevers, chills, headache, chest pain, trouble breathing, cough, abdominal pain, changes in bowel movements, or urinary complaints.. Laboratory findings in the ER indicate leukocytosis of 17.8, hyponatremia 131, elevated creatinine of 3.0, baseline around 1.5. Elevated lactate At 2.5. Chest x-ray is negative for any cardiopulmonary processes. Patient received 1 dose of Rocephin I will start her on IV fluids. 05/06/2024: Patient had episodes of hypotension during the nighttime, he was given fluids with albumin. Hypotension has resolved. Patient feels well, has no complaints. 05/16 blood culture indicated Proteus bacteremia. 05/07/2024: Patient states that he is a biit short of breath. Patient was started on Lasix X 2 yesterday. 05/08/2024: Patient states that he is doing feeling well, has no complaints. No respiratory issues. Patient asked when he can go home. 05/09/2024: Patient has no complaints. Patient is planned for discharge tomorrow With wheelchair assisted ambulance Patient continues to be remain in the hospital due to lack of wheelchair assisted transportation today. 05/10/2024: Patient is states he is too weak to transfer on his own to his wheelchair. This is below his baseline. Cancel discharge To home Current Medications Current Medications Current Medications: Current Medications Generic Name Dose Route Start Last Admin Trade Name Freq PRN Reason Stop Dose Admin Acetaminophen 650 mg 05/05/24 14:14 05/09/24 06:09 Acetaminophen 325 Mg Tablet PO 650 mg Q4HR PRN Administration Pain 1 to 4, or Fever Albuterol/Ipratropium 3 ml 05/08/24 09:15 Ipratropium/Albuterol 3 Ml Neb INH RTQ4H PRN Wheezing Aspirin 81 mg 05/06/24 10:00 05/10/24 09:31 Aspirin Ec 81 Mg Tablet PO 81 mg DAILY ANNABELLE Administration Atorvastatin Calcium 40 mg 05/06/24 21:00 05/09/24 21:36 Atorvastatin 40 Mg Tablet PO 40 mg HS ANNABELLE Administration Baclofen 10 mg 05/07/24 09:00 Baclofen 10 Mg Tablet PO DAILY PRN MUSCLE SPASMS Heparin Sodium (Porcine) 5,000 unit 05/05/24 14:14 05/10/24 09:36 Heparin 5,000 Unit/Ml Vial SUBQ 5,000 unit BID ANNABELLE Administration Ceftriaxone Sodium 2 gm/ 100 mls @ 200 mls/hr 05/06/24 09:00 05/10/24 10:10 Sodium Chloride IV Infused DAILY ANNABELLE Infusion Lactulose 10 gm 05/06/24 09:12 Lactulose 10 Gm /15 Ml Udc PO BID PRN Constipation Levothyroxine Sodium 200 mcg 05/06/24 10:00 05/10/24 07:51 Levothyroxine 100 Mcg Tablet PO 200 mcg DAILY ANNABELLE Administration Meclizine HCl 25 mg 05/06/24 09:08 Meclizine 12.5 Mg Tablet PO BID PRN nausea Metoprolol Tartrate 25 mg 05/08/24 21:00 05/10/24 09:32 Metoprolol Tartrate 25 Mg Tablet PO 25 mg BID ANNABELLE Administration Multi-Ingredient Ointment 1 applic 05/06/24 09:13 Zinc Oxide 20% Oint 30 Gm Tube TOP PRN PRN Skin Care Multivitamins/Minerals 1 tab 05/07/24 09:15 05/10/24 09:31 Multivitamin W/Minerals Tablet PO 1 tab DAILYWM ANNABELLE Administration Ondansetron HCl 4 mg 05/05/24 14:14 Ondansetron Odt 4 Mg Tablet TL Q6HR PRN Nausea / Vomiting Oxycodone HCl 5 mg 05/05/24 14:14 05/10/24 00:23 Oxycodone 5 Mg Tablet PO 5 mg Q4HR PRN Administration Pain 5 to 7 Potassium Chloride 20 meq 05/08/24 14:00 05/10/24 09:31 Potassium Chloride 20 Meq Tablet PO 20 meq DAILYWM ANNABELLE Administration Sodium Chloride 10 ml 05/05/24 14:14 Sodium Chloride Flush 0.9% 10 Ml Syringe IVP PRN PRN NEEDED PER PROVIDER ORDERS Sodium Chloride 10 ml 05/05/24 17:00 05/10/24 09:36 Sodium Chloride Flush 0.9% 10 Ml Syringe IVP 10 ml 0100,0900,1700 ANNABELLE Administration Tamsulosin HCl 0.4 mg 05/09/24 09:00 05/10/24 09:31 Tamsulosin 0.4 Mg Capsule PO 0.4 mg DAILY ANNABELLE Administration Objective Vital Signs/Intake & Output Reviewed Vital Signs: Yes Vital Signs: Vital Signs x48h Temp Pulse Pulse Pulse Resp BP BP 05/10/24 09:39 79 138/76 H 05/10/24 09:32 79 138/76 H 05/10/24 07:27 36.6 C 83 24 159/78 H Pulse Ox 05/10/24 09:39 05/10/24 09:32 05/10/24 07:27 92 Intake & Output: Intake & Output 05/07/24 05/08/24 05/09/24 05/10/24 23:59 23:59 23:59 23:59 Intake Total 1620 / 1620 1970 / 1970 1470 / 1470 340 / 340 Output Total 5425 / 5425 2800 / 2800 1925 / 1925 675 / 675 Balance -3805 / -3805 -830 / -830 -455 / -455 -335 / -335 Objective General Appearance: positive No acute distress and Alert Eyes Bilateral: positive Normal inspection and PERRL ENT: positive ENT inspection nml Neck: positive Nml inspection and Trachea midline Respiratory: positive Chest non-tender and No respiratory distress Cardiovascular: positive Regular rate & rhythm and No murmur Abdomen: positive Non-tender and No organomegaly Skin: positive Color nml and No rash Extremities: positive Non-tender and Other (Left-sided lower extremity deficits secondary to right CVA in the past) Neurologic/Psychiatric: positive Oriented x3 and CN's nml (2-12) Lab Results 05/10/24 06:36 05/10/24 05:26 Other Labs: Lab Results x24hrs 05/10/24 05/10/24 Range/Units 06:36 05:26 WBC 12.2 H (4.8-10.8) x10^3/uL RBC 4.18 L (4.70-6.10) 10^6/uL Hgb 12.3 L (14.0-18.0) g/dL Hct 37.0 L (42.0-52.0) % MCV 88.5 (80.0-94.0) fL MCH 29.4 (27.0-31.0) pg MCHC 33.2 (32.0-36.0) g/dL RDW 13.3 (12.0-15.0) % Plt Count 194 (130-450) 10^3/uL MPV 10.0 (7.4-11.4) fL Neut # (Auto) Not Reportable Lymph # (Auto) Not Reportable [place] # (Auto) Not Reportable Eos # (Auto) Not Reportable Baso # (Auto) Not Reportable Absolute Nucleated RBC Not Reportable Total Counted 100 Band Neuts % (Manual) 4 (0 - 10) % Abnorm Lymph % (Manual) 1 % Metamyelocytes % 2 H ( - 0) % Myelocytes % 2 H ( - 0) % Nucleated RBC % Not Reportable Neutrophils # (Manual) 9.9 H (1.5-6.6) 10^3/uL Lymphocytes # (Manual) 0.9 L (1.5-3.5) 10^3/uL Monocytes # (Manual) 0.6 (0.0-1.0) 10^3/uL Eosinophils # (Manual) 0.4 (0-0.7) 10^3/uL Basophils # (Manual) 0.0 (0-0.1) 10^3/uL Differential Comment MANUAL DIFFERENTIAL WBC Morphology NORMAL APPEARANCE (NORMAL) Platelet Estimate NORMAL (130-450,000) (NORMAL) Platelet Morphology NORMAL APPEARANCE (NORMAL) RBC Morph Micro Appear NORMAL APPEARANCE (NORMAL) Sodium 137 (135-145) mmol/L Potassium 4.4 (3.5-4.5) mmol/L Chloride 106 (101-111) mmol/L Carbon Dioxide 24 (21-32) mmol/L Anion Gap 7.0 (6-13) BUN 29 H (6-20) mg/dL Creatinine 1.6 H (0.6-1.3) mg/dL Estimated GFR (MDRD) 42 L (>89) Glucose 112 H (74-104) mg/dL Calcium 8.7 (8.5-10.3) mg/dL Slides for Path Review Indicated Diagnostic Imaging Diagnostic Imaging Results: positive Final report reviewed Assessment/Plan Problem List (1) UTI (urinary tract infection): Impression: Patient has a history of recurrent pansensitive Proteus UTIs. Patient with a history of BPH Continue patient on IV Rocephin 7 Qualifiers: Hematuria presence: with hematuria Urinary tract infection type: acute cystitis Qualified Code(s): N30.01 - Acute cystitis with hematuria (2) KAYLAH (acute kidney injury): Impression: KAYLAH most likely secondary to sepsis in the background of UTI Versus ATN secondary to hypotension Patient makes adequate amount of urine, creatinine Continues to improve from 3.3 - 2.7 - 2.3 - 2.1 - 1.6. Patient's baseline was around 1.2 On 04/02/2020. Continue to monitor. Replace electrolytes as needed (3) Severe sepsis: Impression: resolved Recurrent UTI with KAYLAH, Now with positive blood cultures. Follow repeat blood cultures for resolution of bacteremia Manage as above. Lactic acidosis has resolved. (4) Leukocytosis: Impression: Resolved (5) Hyponatremia: Impression: Resolved (6) Bacteremia: Impression: 2/2 blood cultures positive for Proteus bacteremia. Follow-up repeat blood cultures 05/07/2024 are negative sofar. Continue IV rocephin 7, Likely discharge patient on oral medication to complete a 10-day ABX course tomorrow Echocardiogram indicates EF of 55 to 60%. No apparent mass or vegetation noted. (7) Hypertension: Impression: Resume home medication metoprolol, Flomax (8) Weakness: Impression: Patient states he is too weak to transfer his own to his wheelchair. He is below his baseline. Obtain PT/OT evaluation and recommendation.
--- NOTE | 2024-05-10 14:00 | OT Plan of Care ---
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 Laboratory findings in the ER indicate leukocytosis of 17.8, hyponatremia 131, elevated creatinine of 3.0, baseline around 1.5. Elevated lactate At 2.5.Chest x-ray is negative for any cardiopulmonary processes. Seen for OT evaluation. Met supine in bed, A&ox4, follows all commands. Baseline deficits including L sided weakness, LB more than UE - + extensor tone. SPT to WC with daily caregivers for ADL/IADLs however is able to get to WC indp and toilet indp. Performed supine to sit EOB MAX A x2 MIN A to maintain sitting EOB 2/2 tone in L LE Pt unable to tolerate OOB at this time 2/2 discomfort and fatigue DEP sit to supine back to bed. Rolling R<>L MOD A using bed rails for brief change MAX A hygiene. Currently MOD A UB, MAX A LB ADL supine. Overall presents with decreased endurance, activity tolerance, and ADL status. Will benefit from cont OT services during acute stay. Rec d/c to SNF. Patient/ Family Goals Patient/Family Goals Return home Goals - Activities of Daily Living Improve Upper Extremity Minimal Assist Dressing to: Improve Lower Extremity Minimal Assist Dressing to: Improve Grooming/Hygiene to: Modified Independent Improve Bathing to: Minimal Assist Improve Toileting to: Minimal Assist Plan Treatment Frequency 1x/day Duration Until discharge -Discharge Recommendations Discharge Location [facility] Transport Needs at [facility]
[2024-05-11 05:49] LABS: BASOPHILS % (AUTO) 0.6 %; EOSINOPHILS % (AUTO) 3.5 %; HCT - HEMATOCRIT 36.2 % (42.0-52.0); MEAN CORPUSCULAR HEMOGLOBIN 29.1 pg (27.0-31.0); MEAN CORPUSCULAR HGB CONC 33.1 g/dL (32.0-36.0); MEAN CORPUSCULAR VOLUME 87.7 fL (80.0-94.0); MEAN PLATELET VOLUME 10.3 fL (7.4-11.4); MONOCYTES % (AUTO) 8.2 %; NEUTROPHILS % (AUTO) 68.4 %; PLT - PLATELET COUNT 249 10^3/uL (130-450); RED BLOOD COUNT 4.13 10^6/uL (4.70-6.10); RED CELL DISTRIBUTION WIDTH 13.2 % (12.0-15.0); WHITE BLOOD COUNT 12.2 x10^3/uL (4.8-10.8)
[2024-05-11 05:55] LABS: ABNORMAL LYMPHS % (MANUAL) 0 %
[2024-05-11 05:59] LABS: CALCIUM 8.2 mg/dL (8.5-10.3); CREATININE 1.2 mg/dL (0.6-1.3); POTASSIUM 3.6 mmol/L (3.5-4.5)
[2024-05-11 06:37] LABS: BAND NEUTROPHILS % (MANUAL) 4 %; BASOPHILS # (MANUAL) 0.1 10^3/uL (0-0.1); BASOPHILS % (MANUAL) 1 %; EOSINOPHILS # (MANUAL) 0.6 10^3/uL (0-0.7); LYMPHOCYTES # (MANUAL) 2.1 10^3/uL (1.5-3.5); LYMPHOCYTES % (MANUAL) 17 %; MONOCYTES # (MANUAL) 0.5 10^3/uL (0.0-1.0); NEUTROPHILS # (MANUAL) 8.9 10^3/uL (1.5-6.6)
[2024-05-11 06:38] LABS: DIFFERENTIAL COMMENT MANUAL DIFFERENTIAL; PLATELET ESTIMATE, MANUAL NORMAL (130-450,000) (NORMAL); PLATELET MORPHOLOGY NORMAL APPEARANCE (NORMAL); RBC MORPHOLOGY (MULTIPLE) NORMAL APPEARANCE (NORMAL); WBC MORPHOLOGY (MULTIPLE) NORMAL APPEARANCE (NORMAL)
[2024-05-11] MEDS: FLUTICASONE NASAL SPRAY NAS SCH (11:28)
--- NOTE | 2024-05-11 11:29 | PROVIDER PROGRESS NOTE ---
Subjective Subjective Subjective: Overall, patient is doing well. He does note some dysuria when initiating his urinary stream, but states it is improving. Denies any fevers or chills. He does state that he feels pretty weak. He is in agreement with SNF placement, and he would like to be stronger before he goes home. Current Medications Current Medications Current Medications: Current Medications Generic Name Dose Route Start Last Admin Trade Name Freq PRN Reason Stop Dose Admin Acetaminophen 650 mg 05/05/24 14:14 05/09/24 06:09 Acetaminophen 325 Mg Tablet PO 650 mg Q4HR PRN Administration Pain 1 to 4, or Fever Albuterol/Ipratropium 3 ml 05/08/24 09:15 Ipratropium/Albuterol 3 Ml Neb INH RTQ4H PRN Wheezing Aspirin 81 mg 05/06/24 10:00 05/11/24 08:03 Aspirin Ec 81 Mg Tablet PO 81 mg DAILY ANNABELLE Administration Atorvastatin Calcium 40 mg 05/06/24 21:00 05/10/24 20:37 Atorvastatin 40 Mg Tablet PO 40 mg HS ANNABELLE Administration Baclofen 10 mg 05/07/24 09:00 Baclofen 10 Mg Tablet PO DAILY PRN MUSCLE SPASMS Fluticasone Propionate 1 sprays 05/11/24 10:00 05/11/24 11:28 Fluticasone Nasal Pace KYLAH 1 sprays DAILY ANNABELLE Administration Heparin Sodium (Porcine) 5,000 unit 05/05/24 14:14 05/11/24 08:05 Heparin 5,000 Unit/Ml Vial SUBQ 5,000 unit BID ANNABELLE Administration Lactulose 10 gm 05/06/24 09:12 Lactulose 10 Gm /15 Ml Udc PO BID PRN Constipation Levothyroxine Sodium 200 mcg 05/11/24 09:51 Levothyroxine 100 Mcg Tablet PO 0700 ANNABELLE Meclizine HCl 25 mg 05/06/24 09:08 Meclizine 12.5 Mg Tablet PO BID PRN nausea Metoprolol Tartrate 25 mg 05/08/24 21:00 05/11/24 08:03 Metoprolol Tartrate 25 Mg Tablet PO 25 mg BID ANNABELLE Administration Multi-Ingredient Ointment 1 applic 05/06/24 09:13 Zinc Oxide 20% Oint 30 Gm Tube TOP PRN PRN Skin Care Multivitamins/Minerals 1 tab 05/07/24 09:15 05/11/24 08:04 Multivitamin W/Minerals Tablet PO 1 tab DAILYWM ANNABELLE Administration Ondansetron HCl 4 mg 05/05/24 14:14 Ondansetron Odt 4 Mg Tablet TL Q6HR PRN Nausea / Vomiting Oxycodone HCl 5 mg 05/05/24 14:14 05/10/24 00:23 Oxycodone 5 Mg Tablet PO 5 mg Q4HR PRN Administration Pain 5 to 7 Potassium Chloride 20 meq 05/08/24 14:00 05/11/24 08:03 Potassium Chloride 20 Meq Tablet PO 20 meq DAILYWM ANNABELLE Administration Sodium Chloride 10 ml 05/05/24 14:14 Sodium Chloride Flush 0.9% 10 Ml Syringe IVP PRN PRN NEEDED PER PROVIDER ORDERS Sodium Chloride 10 ml 05/05/24 17:00 05/11/24 08:08 Sodium Chloride Flush 0.9% 10 Ml Syringe IVP 10 ml 0100,0900,1700 ANNABELLE Administration Tamsulosin HCl 0.4 mg 05/09/24 09:00 05/11/24 08:03 Tamsulosin 0.4 Mg Capsule PO 0.4 mg DAILY ANNABELLE Administration Objective Vital Signs/Intake & Output Reviewed Vital Signs: Yes Vital Signs: Vital Signs x48h Temp Pulse Pulse Resp BP BP Pulse Ox 05/11/24 08:03 72 134/62 H 05/11/24 07:45 97.7 F 74 20 141/77 H 93 Intake & Output: Intake & Output 05/08/24 05/09/24 05/10/24 05/11/24 23:59 23:59 23:59 23:59 Intake Total 1969 / 1969 1470 / 1470 970 / 970 500 / 500 Output Total 2800 / 2800 1925 / 1925 1600 / 1600 1300 / 1300 Balance -830 / -830 -455 / -455 -630 / -630 -800 / -800 Objective General Appearance: positive No acute distress and Alert Eyes Bilateral: positive Normal inspection and PERRL ENT: positive ENT inspection nml Neck: positive Nml inspection and Trachea midline Respiratory: positive Chest non-tender and No respiratory distress Cardiovascular: positive Regular rate & rhythm and No murmur Abdomen: positive Non-tender and No organomegaly Skin: positive Color nml and No rash Extremities: positive Non-tender and Other (LLE 4/5 in strength to extension and flexion) Neurologic/Psychiatric: positive Oriented x3, Mood/affect nml and Weakness; negative Facial droop Lab Results 05/11/24 05:35 05/11/24 05:35 Other Labs: Lab Results x24hrs 05/11/24 Range/Units 05:35 WBC 12.2 H (4.8-10.8) x10^3/uL RBC 4.13 L (4.70-6.10) 10^6/uL Hgb 12.0 L (14.0-18.0) g/dL Hct 36.2 L (42.0-52.0) % MCV 87.7 (80.0-94.0) fL MCH 29.1 (27.0-31.0) pg MCHC 33.1 (32.0-36.0) g/dL RDW 13.2 (12.0-15.0) % Plt Count 249 (130-450) 10^3/uL MPV 10.3 (7.4-11.4) fL Neut # (Auto) Not Reportable Lymph # (Auto) Not Reportable [place] # (Auto) Not Reportable Eos # (Auto) Not Reportable Baso # (Auto) Not Reportable Absolute Nucleated RBC Not Reportable Total Counted 100 Band Neuts % (Manual) 4 (0 - 10) % Abnorm Lymph % (Manual) 0 % Nucleated RBC % Not Reportable Neutrophils # (Manual) 8.9 H (1.5-6.6) 10^3/uL Lymphocytes # (Manual) 2.1 (1.5-3.5) 10^3/uL Monocytes # (Manual) 0.5 (0.0-1.0) 10^3/uL Eosinophils # (Manual) 0.6 (0-0.7) 10^3/uL Basophils # (Manual) 0.1 (0-0.1) 10^3/uL Differential Comment MANUAL DIFFERENTIAL WBC Morphology NORMAL APPEARANCE (NORMAL) Platelet Estimate NORMAL (130-450,000) (NORMAL) Platelet Morphology NORMAL APPEARANCE (NORMAL) RBC Morph Micro Appear NORMAL APPEARANCE (NORMAL) Sodium 137 (135-145) mmol/L Potassium 3.6 (3.5-4.5) mmol/L Chloride 106 (101-111) mmol/L Carbon Dioxide 25 (21-32) mmol/L Anion Gap 6.0 (6-13) BUN 22 H (6-20) mg/dL Creatinine 1.2 (0.6-1.3) mg/dL Estimated GFR (MDRD) 59 L (>89) Glucose 120 H (74-104) mg/dL Calcium 8.2 L (8.5-10.3) mg/dL Diagnostic Imaging Diagnostic Imaging Results: positive Final report reviewed Assessment/Plan Problem List (1) Severe sepsis: Impression: Resolved. Patient presented with urinary tract infection, as well as bacteremia with Proteus. This is sensitive to Rocephin. Completed 7-day course of IV Rocephin today. Patient with minimal symptoms at this time. (2) UTI (urinary tract infection): Impression: Patient presented with urinary tract infection, as well as bacteremia with Proteus. This is sensitive to Rocephin. Completed 7-day course of IV Rocephin today. Patient with minimal symptoms at this time. Qualifiers: Hematuria presence: with hematuria Urinary tract infection type: acute cystitis Qualified Code(s): N30.01 - Acute cystitis with hematuria (3) KAYLAH (acute kidney injury): Impression: Resolved. Baseline creatinine was 1.2 in 03/2022. Do not have another baseline since. This morning, his creatinine is 1.2. Encouraged adequate hydration, p.o. intake. (4) Leukocytosis: Impression: Resolved. Qualifiers: Leukocytosis type: unspecified Qualified Code(s): D72.829 - Elevated white blood cell count, unspecified (5) Hyponatremia: Impression: Resolved. (6) Hypertension: Impression: Continue home metoprolol, atorvastatin, aspirin. Qualifiers: Hypertension type: unspecified Qualified Code(s): I10 - Essential (primary) hypertension (7) Weakness: Impression: Patient is below his baseline in terms of his weakness, with this new urinary tract infection. He also has a history of previous CVA with some left-sided weakness. PT/OT did evaluate the patient, and recommend SNF. Patient is agreeable. Patient is medically stable for discharge.
--- NOTE | 2024-05-11 13:07 | PT Plan of Care ---
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 assist x Comments 2-3; not able to step. Assessment Assessment Pt is a pleasant 74yo M referred for PT eval d/t sepsis with weakness. H/o CVA in 2012 with residual L side weakness. Pt lives at home and has CG assist; wc bound at baseline but able to SPT to/from . Upon PT eval, pt reports weakness and some pain with mobility. Transfers to EOB with maxAx2, able to sit unsupported for 2-3 min but fatigues rapidly. Increased LLE tone , unable to maintain foot on floor for improved balance. Pt reports feeling lightheaded and requests to return to supine. MaxAx2 for supine to sit, trendelenburg for repositioning in bed. Pt presents below baseline and is unable to participate in SPT training d/t malaise, lightheadedness and increased LLE tone. Pt will benefit from PT in acute setting to address impairments and restore PLOF. When medically clear, PT rec dc to SNF. Patient/ Family Goals Patient/Family Goals To d/c home. Goals Improve bed mobility to: Moderate Assist Improve supine to sit to: Moderate Assist Improve sit to stand to: Moderate Assist Improve pivot transfer ability Moderate Assist to: Improve sit to supine to: Minimal Assist Improve Lower Extremity ROM to Limited/End Range : [Left] Improve Lower Extremity Fair Strength to: [Left] Improve Upper Extremity ROM to Limited/End Range : [Bilateral] Improve Upper Extremity Good Strength to: [Bilateral] Improve Sitting Balance to: Good Improve Standing Balance to: Fair PT Plan of Care Frequency 1-2x/day Duration Until goals are met Discharge Recommendations Discharge Location Assisted Facility Support/Services Needed With assist DC Equipment Recommended Wheelchair,Gait belt Other has Transport Needs at [facility]charge [facility] Other BLS d/t unable to transfer to at this time
[2024-05-12 05:54] LABS: HCT - HEMATOCRIT 37.6 % (42.0-52.0); HGB - HEMOGLOBIN 12.4 g/dL (14.0-18.0); MEAN CORPUSCULAR VOLUME 88.1 fL (80.0-94.0); MEAN PLATELET VOLUME 9.7 fL (7.4-11.4); RED BLOOD COUNT 4.27 10^6/uL (4.70-6.10); RED CELL DISTRIBUTION WIDTH 13.3 % (12.0-15.0); WHITE BLOOD COUNT 10.5 x10^3/uL (4.8-10.8)
[2024-05-12 06:07] LABS: CALCIUM 8.3 mg/dL (8.5-10.3); CREATININE 1.3 mg/dL (0.6-1.3); MAGNESIUM 1.8 mg/dL (1.7-2.3); POTASSIUM 3.8 mmol/L (3.5-4.5)
[2024-05-12] MEDS: LEVOTHYROXINE 100 MCG TABLET PO SCH (06:18)
[2024-05-12 07:22] LABS: PATHOLOGIST SLIDE COMMENTS SEE SEPARATE REPORT
[2024-05-12 08:41] VITALS: BP 157/78; TEMP 97.7; O2SAT 92
--- NOTE | 2024-05-12 11:34 | Discharge Summary ---
"Discharge Summary Admit Date: 05/05/24 Discharge Date: 05/11/24 Discharging Provider: Dr. Sonal Sinha Primary Care Provider: Viji Knight Code Status: Attempt Resuscitation Discharge Facility Name: [facility] DIAGNOSES Admission Diagnoses: Urinary tract infection Acute kidney injury Severe sepsis Leukocytosis Hyponatremia Discharge Diagnoses with Status of Each Condition: Severe sepsisresolved. Patient did have bacteremia with Proteus. Completed 7- day course of IV Rocephin. UTIpresented with urine tract infection, as well as bacteremia with Proteus. Sensitive to Rocephin. Completed course. Acute kidney injuryresolved. Continue to encourage adequate hydration, p.o. intake. Leukocytosisresolved. Hyponatremiaresolved. Hypertensioncontinue home metoprolol, atorvastatin, aspirin. Weaknesspatient has worsening weakness. Has a CVA history of about 11 years ago with left lower extremity weakness. Recommend ongoing PT/OT at SNF. HPI History of Present Illness: Per Dr. 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 The last 2 days he has been generally weak and cannot transfer and has been bedbound which is not his baseline. He really has no other complaints except for chronic back pain and chronic left leg weakness from the prior stroke. He denies fevers, chills, headache, chest pain, trouble breathing, cough, abdominal pain, changes in bowel movements, or urinary complaints.. Laboratory findings in the ER indicate leukocytosis of 17.8, hyponatremia 131, elevated creatinine of 3.0, baseline around 1.5. Elevated lactate At 2.5. Chest x-ray is negative for any cardiopulmonary processes. Patient received 1 dose of Rocephin I will start her on IV fluids. CONSULTS | PROCEDURES Consultations: Physical therapy, Occupational Therapy, social work Procedures: Chest x-ray05/05 no acute cardiopulmonary process. HOSPITAL COURSE Hospital Course: Patient is a 74-year-old male with a history of right CVA with residual left- sided lower extremity deficits, recurrent UTIs who presented for weakness for 2 days. He denies any fevers, chills, urinary complaints. Found to have a leukocytosis of 17.8, hyponatremia of 131, KAYLAH with creatinine of 3, with baseline around 1.5. Lactic acid was elevated at 2.5. UA did show urinary tract infection, and was sent for culture which grew Proteus . Initial blood cultures were 2 out of 2 positive for Proteus Mirabelis as well. He was given IV fluids, and completed a 7-day course of Rocephin. His creatinine improved with IV fluids, and encouraging p.o. intake. His leukocytosis resolved. PT/OT did evaluate the patient, and recommended SNF placement. Patient is going to [facility] for further rehab. ALLERGIES Allergies Allergy/AdvReac Type Severity Reaction Status Date / Time No Known Drug Allergies Allergy Verified 05/05/24 08:52 MEDICATIONS Ambulatory Orders Medication Instructions Recorded Confirmed aspirin 81 mg tablet,delayed 81 mg PO DAILY 06/08/13 05/05/24 release (Aspir-) baclofen 10 mg tablet 10 mg PO DAILY 06/08/13 05/05/24 metoprolol tartrate 25 mg tablet 25 mg PO BID 06/08/13 05/05/24 levothyroxine 200 mcg capsule 200 mcg PO DAILY 03/30/20 05/05/24 multivitamin with minerals-folic 1 tab PO DAILY 03/30/20 05/05/24 acid 0.4 mg tablet (Adult One Daily Multivitamin) lactulose 10 gram/15 mL oral 10 g (15 mL) PO BID PRN 06/27/23 05/05/24 solution Constipation #300 mL multivitamin 1 ea PO DAILY 11/04/23 05/05/24 tamsulosin 0.4 mg capsule 0.4 mg PO DAILY 11/04/23 05/05/24 acetaminophen 500 mg tablet 500 mg PO Q4-6H PRN pain 05/05/24 05/05/24 atorvastatin 40 mg tablet 40 mg PO HS 05/05/24 05/05/24 meclizine 25 mg tablet 25 mg PO BID PRN nausea 05/05/24 05/05/24 potassium chloride 10 mEq 10 meq PO BID 05/05/24 05/05/24 tablet,extended release PHYSICAL EXAM AT DISCHARGE General Appearance: positive No acute distress and Alert; negative Anxious Eyes Bilateral: positive Normal inspection, PERRL and EOMI ENT: positive ENT inspection nml, Pharynx nml and No signs of dehydration Neck: positive Nml inspection, Thyroid nml and No JVD Respiratory: positive Chest non-tender and No respiratory distress; negative Wheezes, Rales or Rhonchi Cardiovascular: positive Regular rate & rhythm, No murmur and No gallop Peripheral Pulses: positive 2+ Abdomen: positive Non-tender; negative Guarding, Rebound, Hepatomegaly or Splenomegaly Back: positive Nml inspection; negative CVA tenderness (R) or CVA tenderness (L) Skin: positive Color nml, No rash and Warm Extremities: positive Non-tender, Nml appearance and No pedal edema; negative Full ROM (LLE weakness 3/5) Neurologic/Psychiatric: positive Oriented x3 and Mood/affect nml; negative Facial droop or Slurred/abnml speech LABS 05/12/24 05:45 05/12/24 05:45 DIAGNOSTIC IMAGING Diagnostic Imaging Results: Final report reviewed SEPSIS Current Stage of Sepsis: Resolved QUALITY (Female Hip Fx Only) Was patient sent home on osteoporosis medication?: No FOLLOW UP Follow Up: Follow-up with primary care physician. TIME SPENT Time Spent in Discharge (Minutes): 40 Discharge Plan Discharge Patient Disposition: [facility] DC/Xfer Condition: Fair Prescriptions: Continued aspirin [Aspir-81] 81 MG tablet,delayed release (DR/EC) 81 mg PO DAILY baclofen 10 MG tablet 10 mg PO DAILY metoprolol tartrate 25 MG tablet 25 mg PO BID multivit with min-folic acid [Adult One Daily Multivitamin] 0.4 MG tablet 1 tab PO DAILY levothyroxine 200 MCG capsule 200 mcg PO DAILY lactulose 10 GM/15 ML solution 10 g PO BID PRN (Reason: Constipation) Qty: 300 0RF multivitamin 1 EACH tablet 1 ea PO DAILY tamsulosin 0.4 MG capsule 0.4 mg PO DAILY Patient Comments: take 1 capsule by mouth once daily acetaminophen 500 mg tablet 500 mg PO Q4-6H PRN (Reason: pain) meclizine 25 mg tablet 25 mg PO BID PRN (Reason: nausea) potassium chloride 10 mEq tablet extended release 10 meq PO BID Patient Comments: take 1 tablet by mouth twice a day atorvastatin 40 mg tablet 40 mg PO HS Patient Comments: take 1 tablet by mouth at bedtime Activity Restrictions: Activity as Tolerated Diet: Regular Health Concerns: You are admitted for a bloodstream infection due to a urinary tract infection. You completed your course of IV antibiotics while you were here. Your numbers are all getting better, including your kidney numbers. Please follow-up with your primary care doctor within the next 1 to 2 weeks. Please continue to work on gaining her strength at rehab. We are glad you are feeling better, thank you for allowing us to take care of you. Print Language: Mongolian Patient Instructions: Injury Acute Kidney Dc, Sepsis Stand Alone Forms: PCP List Follow-up Care: Viji Knight MD [Primary Care Provider] -"
== END 2024-05-12 14:15 | DRG 872 ==
LOC: ED 08:35 → MS2 14:14
PROVIDERS: ADMIT Internal Medicine; ATTEND Internal Medicine